=== PATIENT | female | born 1950 | race Caucasian/White ===

== ENCOUNTER → 2019-06-12 16:22 | Outpatient (BNVA) | payer MEDICARE, OTHER, SELFPAY | PROVIDERS: PCP Nurse Practitioner Family; Visit Provider Nurse Practitioner Family | DX: E55.9 Vitamin D deficiency, unspecified (principal); Z13.6 Encounter for screening for cardiovascular disorders; E03.9 Hypothyroidism, unspecified; L20.9 Atopic dermatitis, unspecified; M15.9 Polyosteoarthritis, unspecified; J40 Bronchitis, not specified as acute or chronic; R03.0 Elevated blood-pressure reading, without diagnosis of hypertension | CPT/HCPCS: 80053; 80061; 82306; 84443; 85025 ==

== ENCOUNTER → 2019-10-26 13:27 | Outpatient (BNVA) | payer MEDICARE, OTHER, SELFPAY | PROVIDERS: PCP Nurse Practitioner Family; Visit Provider Nurse Practitioner Family | DX: I10 Essential (primary) hypertension (principal); E03.9 Hypothyroidism, unspecified; E55.9 Vitamin D deficiency, unspecified | CPT/HCPCS: 80053; 80061; 82306; 82607; 83735; 84443; 85025 ==

== ENCOUNTER → 2019-11-28 11:25 | Outpatient (BNVA) | payer MEDICARE, OTHER, SELFPAY | PROVIDERS: PCP Nurse Practitioner Family; Visit Provider Nurse Practitioner Family | DX: R73.9 Hyperglycemia, unspecified (principal); I10 Essential (primary) hypertension; E55.9 Vitamin D deficiency, unspecified; E03.9 Hypothyroidism, unspecified | CPT/HCPCS: 83036 ==

== ENCOUNTER → 2019-12-07 11:50 | Outpatient (BNVA) | payer MEDICARE, OTHER, SELFPAY | PROVIDERS: PCP Nurse Practitioner Family; Visit Provider Orthopaedic Surgery | DX: Z20.828 Contact with and (suspected) exposure to other viral communicable diseases (principal) | CPT/HCPCS: 87635 ==

== ENCOUNTER → 2020-01-01 14:58 | Outpatient (BNVA) | payer MEDICARE, OTHER, SELFPAY | PROVIDERS: PCP Nurse Practitioner Family; Visit Provider Orthopaedic Surgery | DX: M25.561 Pain in right knee (principal) | CPT/HCPCS: 73560; 73565 ==

== ENCOUNTER → 2020-02-04 12:07 | Day surgery (SDC) | payer MEDICARE, OTHER, SELFPAY ==
--- NOTE | 2019-12-03 12:00 | ECG_ITS ---
[facility] Test Date: 2019-12-03 Pat Name: Tania Sandy Department: Room: Gender: Female Field Crew Chief: : 1950 Requested By: Dyana Barney Order Number: [id number] Elba MD: Juan Moulton M.D. Measurements Intervals [place] Rate: 72 P: 49 OR: 171 QRS: 19 QRSD: 86 T: 29 QT: 360 QTc: 395 Interpretive Statements SINUS RHYTHM No previous ECG available for comparison Electronically Signed On 12-03-2019 20:53:01 CDT by Juan Moulton M.D. [id number]
--- NOTE | 2019-12-03 12:15 | ANES.PREANE2 ---
Pre-Anesthetic Assessment Pre-Anesthetic Assessment: Height/Weight: Height 1.68 m Weight 104.326 kg Preop Diagnosis: Osteoarthritis Proposed Procedure: Operation Date: 12/10/19 09:25 Proposed Procedures p right Total Knee Arthroplasty 66405 M17.0(Right) - Sonny Parikh MD Familial anesthetic complications: PONV Social: Social History: No alcohol and No tobacco Exam: Pre-Anes Outpt Exam: alert, oriented x 3, clear to auscultation bilaterally and regular rate & rhythm Airway: Cervical ROM: WNL MP: 4 Dentition: Full Pulmonary: Pulmonary: Asthma Comments: former smoker CV/HEM: CV/HEM: HTN GI: GI: GERD Metabolic: Metabolic: Morbid obesity and Thyroid Anesthetic Plan: ASA status: 3 Anesthesia: Regional (specify below) (spinal + adductor) Other: avoid intrathecal opioids Risk of > 500 ml blood loss (7ml/kg in children): No PFSH Anesthesia PFSH: Medical History (Updated 11/28/19 @ 13:44 by ASHUTOSH Servin) Asthma Cough due to LIZZY inhibitor GERD (gastroesophageal reflux disease) Hypothyroid Osteoarthritis Urge incontinence Vitamin D deficiency Surgical History (Updated 10/12/19 @ 21:49 by ASHUTOSH Servin) Hx of gastric bypass Hx of hysterectomy Family History Other Arthritis Social History Smoking and tobacco status: former smoker Quit status (tobacco): has quit using tobacco Former quit date comment: smoked x 15 yrs Second hand smoke exposure: No Lives independently: Yes Household members: spouse Marital status: Current occupational status: retired History of recent travel: No Current gender identity: Female Data Anesthesia Cardiac Studies: No Data to Display
[2019-12-03 12:56] LABS: Basophils % 0.6 %; Eosinophils # 0.2 10^3/uL (0.0-0.8); Eosinophils % 2.4 %; Hematocrit 39.6 % (37.0-47.0); Lymphocytes # 2.6 10^3/uL (0.8-4.8); Lymphocytes % 38.2 %; Mean Corpuscular HGB Conc 30.3 g/dL (30.0-36.0); Mean Corpuscular Hemoglobin 28.2 pg (28.0-34.0); Mean Corpuscular Volume 93.2 fL (81-99); Monocytes # 0.5 10^3/uL (0.2-0.9); Monocytes % 7.5 %; Neutrophils # 3.45 10^3/uL (1.8-7.7); Nucleated Red Blood Cells % 0 %; Platelet Count 235 10^3/cmm (130-400); Red Blood Count 4.25 10^6/uL (4.1-5.3); White Blood Count 6.8 10^3/uL (4.0-10.0)
[2019-12-03 12:58] LABS: Anion Gap 13.3 (5-19); Blood Urea Nitrogen 8 mg/dL (8-23); Calcium 9.3 mg/dL (8.5-10.5); Carbon Dioxide 28 mmol/L (22-29); Chloride 99 mmol/L (98-107); Creatinine Clr Calc Pharmacy 81.0014; Glomerular Filtration Rate 99.1 mL/min (90-130); Glucose 98 mg/dL (65-115); Osmolality Calculated 278 mOsm/kg (285-295); Potassium 4.3 mmol/L (3.5-5.1); Sodium 136 mmol/L (136-145)
== END ==
PROVIDERS: Anesthesiology; PCP Nurse Practitioner Family; Visit Provider Orthopaedic Surgery
DX: Z01.818 Encounter for other preprocedural examination (principal); M17.11 Unilateral primary osteoarthritis, right knee
CPT/HCPCS: 36415; 80048; 85025; 93005

== ENCOUNTER → 2020-02-12 14:36 | Outpatient (BNVA) | payer MEDICARE, OTHER, SELFPAY | PROVIDERS: PCP Nurse Practitioner Family; Visit Provider Orthopaedic Surgery | DX: Z20.828 Contact with and (suspected) exposure to other viral communicable diseases (principal); Z01.812 Encounter for preprocedural laboratory examination | CPT/HCPCS: 87635 ==

== ENCOUNTER 2020-02-18 09:04 | Observation (INO) | payer MEDICARE, OTHER, SELFPAY ==
[2020-02-04 12:46] VITALS: BMI 37.1
--- NOTE | 2020-02-04 13:05 | ANES.PREANE2 ---
Pre-Anesthetic Assessment Pre-Anesthetic Assessment: Height/Weight: Height 1.68 m Weight 104.326 kg Preop Diagnosis: Right total knee arthroplasty Proposed Procedure: Operation Date: 02/18/20 07:00 Proposed Procedures p Total Knee Arthroplasty 44735 M17.11(Right) - Sonny Parikh MD Familial anesthetic complications: NOne Was Beta Demetris taken within 24 hours: N/A Social: Social History: No alcohol and No tobacco Exam: Pre-Anes Outpt Exam: alert, oriented x 3, clear to auscultation bilaterally and regular rate & rhythm Airway: Cervical ROM: WNL MP: 3 Dentition: Full Pulmonary: Pulmonary: Asthma Metabolic: Metabolic: Thyroid Anesthetic Plan: ASA status: 2 Anesthesia: Regional (specify below) Other: spinal + adductor Risk of > 500 ml blood loss (7ml/kg in children): No PFSH Anesthesia PFSH: Medical History (Updated 01/01/20 @ 15:39 by Sonny Parikh MD) Asthma Cough due to LIZZY inhibitor GERD (gastroesophageal reflux disease) Hypothyroid Osteoarthritis Urge incontinence Vitamin D deficiency Surgical History Hx of gastric bypass Hx of hysterectomy Family History Other Arthritis Social History Smoking and tobacco status: former smoker Quit status (tobacco): has quit using tobacco Former quit date comment: smoked x 15 yrs Second hand smoke exposure: No Lives independently: Yes Household members: spouse Marital status: Current occupational status: retired History of recent travel: No Current gender identity: Female Data Anesthesia Cardiac Studies: No Data to Display
[2020-02-18] VITALS (20 sets, daily range): BP systolic 109–153; BP diastolic 55–94; PULSE 67–92; RESP 13–20; TEMP 36–37.7; O2SAT 91–100
[2020-02-18] MEDS: sodium chloride 0.9% 1,000 ML 30 ML IV ×2 (06:13→09:19)
[2020-02-18] MEDS: midazolam 1 mg/mL INJ 5 ML 5 MG IVP (06:40)
[2020-02-18] MEDS: scopolamine 1.5 Patch 1 PATCH TRANSDERMA (06:48)
--- NOTE | 2020-02-18 06:53 | P.ANESUD_ITS ---
Pre-Anesthetic Update Pre-Anesthetic Assessment: Date of Surgery/Procedure: 02/18/20 Preop Brandie gnosis: Right total knee arthroplasty Proposed Procedure: Operation Date: 02/18/20 07:00 Proposed Procedures p Total Knee Arthroplasty 22558 M17.11(Right) - Sonny Parikh MD Any changes to Pre-Anesthetic Assessment?: No Last Intake: Intake Last Liquid Date 02/17/20 Last Liquid Time 23:59 Last Solid Date 02/17/20 Last Solid Time 17:00 Vitals: Temperature 96.8 F L 02/18/20 05:50 Temperature Source Temporal Artery S can 02/18/20 05:50 Pulse Rate 72 02/18/20 05:50 Pulse Rhythm 02/18/20 05:50 Pulse Strength 3+ Normal 02/18/20 05:50 Respiratory Rate 18 02/18/20 05:50 Blood Pressure 153/94 02/18/20 05:50 Blood Pressure Madelyn n 113 02/18/20 05:50 Pulse Oximetry 98 02/18/20 05:50 Oxygen Delivery Me thod 02/18/20 05:50 Exam: Pre-Anes Outpt Exam: alert, oriented x 3, clear to auscultation bilaterally and regular rate & rhythm Cardiac Studies: No Data to Display
--- NOTE | 2020-02-18 06:53 | ANES.PROC ---
Anesthesia Procedures Procedure/Date: 02/18/20 Nerve Block ^: Nerve Block 1: Main Anesthesia: general anesthesia Time Out Performed: Yes Consent: requested by attending/covering physician, from patient, risks and benefits reviewed and patient agrees to proceed Nerve block location: adductor canal (R) Anesthesia monitors applied: pulse oximetry, EKG, BP cuff and oxygen Nerve block position: supine Anesthetic Used: ropivicaine 0.5% and with decadron (4 mg) Amount of anesthesia used (mL): 30 Ultrasound used to: visualize and ID femerol nerve Nerve Stimulator Used?: No Interscalene/Femoral BLK: 4 stimuplex 21 g needle used for position and inplane approach, visualize local anesthetic spread and no vascular puncture identified Injection: neg aspiration of heme and paresthesia +/- Patient Tolerated Procedure: well and no complications Complications: none
--- NOTE | 2020-02-18 07:04 | W.PM.OPSFHP ---
Same Day Surgery H&P Indication for Procedure/HPI DATE OF PROCEDURE: February 18, 2020 CHIEF COMPLAINT/INDICATIONFOR SURGICAL PROCEDURE: Osteoarthritis right knee, here for elective right total knee arthroplasty PREOP DIAGNOSIS: Right total knee arthroplasty PLANNED PROCEDRUE: Operation Date: 02/18/20 07:00 Proposed Procedures p Total Knee Arthroplasty 10341 M17.11(Right) - Sonny Parikh MD Medications/Allergies* Home Medications Medication Instructions Recorded Confirmed Type albuterol sulfate 90 mcg/actuation 2 puff INHALATION Q6H PRN 06/12/19 02/18/20 History aerosol inhaler docosanol 10 % topical cream 1 applic TOPICAL DAILY gm 06/12/19 02/18/20 History fluticasone 100 mcg-salmeterol 50 1 puff INHALATION BID 06/12/19 02/18/20 History mcg/dose blistr powdr for inhalation cholecalciferol (vitamin D3) 25 3,000 unit PO DAILY tab 07/04/19 02/18/20 History mcg (1,000 unit) tablet mecobalamin (vitamin B12) 1,000 1,000 mcg PO DAILY 07/04/19 02/18/20 History mcg chewable tablet magnesium oxide 500 mg capsule 500 mg PO DAILY 10/11/19 02/18/20 History potassium gluconate 600 mg (99 mg) 600 mg PO DAILY 10/11/19 02/18/20 History tablet latanoprost 1 drp OPHTHALMIC (EYE) DAILY 12/03/19 02/18/20 History lisinopril 5 mg PO DAILY 12/03/19 02/18/20 History Allergies/Adverse Reactions Allergy/AdvReac Type Severity Reaction Status Date / Time latex Allergy itch rash Verified 02/04/20 12:38 Current Medications: Generic Name Dose Route Start Last Admin Trade Name Freq PRN Reason Stop Dose Admin Sodium Chloride 1,000 mls @ 30 mls/hr 02/18/20 05:45 02/18/20 06:13 Sodium Chloride 0.9% IV 02/19/20 05:44 30 mls/hr .Q24H SYLVESTER Administration Pertinent History/Comorbid Conditions* Medical History (Updated 01/01/20 @ 15:39 by Sonny Parikh MD) Asthma Cough due to LIZZY inhibitor GERD (gastroesophageal reflux disease) Hypothyroid Osteoarthritis Urge incontinence Vitamin D deficiency Surgical History (Updated 10/12/19 @ 21:49 by ASHUTOSH Servin) Hx of gastric bypass Hx of hysterectomy Family History (Updated 06/12/19 @ 13:59 by Mariann Morales LPN, RT) Arthritis Social History Smoking and tobacco status: former smoker Quit status (tobacco): has quit using tobacco Former quit date comment: smoked x 15 yrs Second hand smoke exposure: No Lives independently: Yes Household members: spouse Marital status: Current occupational status: retired History of recent travel: No Current gender identity: Female Pertinent Exam Findings alert, oriented x 3, clear to auscultation bilaterally, regular rate & rhythm, operative site marked and procedure specific exam findings Recommendations Surgery/Procedure today Coding Level of Care Code Acute Wet Crown Blocking Operator for Melissa Perry
[2020-02-18] MEDS: ceFAZolin 2,000 MG in sodium chloride 0.9% (plus) 50 ML 100 MG IV (07:15)
[2020-02-18] MEDS: EPINEPHrine 1 mg/mL INJ XX (08:23)
[2020-02-18] MEDS: ketorolac 30 mg/mL INJ IM (08:23)
[2020-02-18] MEDS: tranexamic acid 1,000 mg/10mL SDV 1000 MG IRRIGATION (08:26)
[2020-02-18] MEDS: fentaNYL 50 mcg/mL INJ 2mL IVP (09:20)
--- NOTE | 2020-02-18 09:29 | XRR_ITS ---
PROCEDURE INFORMATION: Exam: XR Right Knee Exam date and time: 02/18/2020 9:38 AM Age: 69 years old Clinical indication: Device placement; Joint replacement hardware; Prior surgery; Surgery date: Post-operative (0-2 days); Additional info: Status post right total knee arthroplasty TECHNIQUE: Imaging protocol: XR Right knee. Views: Frontal and cross-table lateral views. COMPARISON: CR XR knees AP WB w RT lmt ORTH 01/01/2020 3:04 PM FINDINGS: Tubes, catheters and devices: Anterior surgical cutaneous clips. The patellar, femoral, and tibial prosthetic joint components appear to be in good position and alignment. Bones/joints: There is no fracture identified. There is no joint effusion identified. Soft tissues: Operative site emphysema is present. Other findings: The patient is status post total knee replacement. XR/XR knee RT 1-2V 10583 IMPRESSION: Satisfactory appearance status post total knee replacement.
--- NOTE | 2020-02-18 09:31 | PM.OP ---
Operative Report Date of procedure: February 18, 2020 Pre-op Diagnosis: Right total knee arthroplasty Post-op diagnosis: same Post-op Findings: Same Procedure Done: Right total knee arthroplasty Pathology: none sent Surgeon: Sonny Parikh Anesthesia: General Estimated blood loss (mL): 100 Findings: Patient had cartilage loss over the medial femoral condyle and medial tibial plateau Condition: stable Procedure: The patient was taken to the operating room. Patient was given 1 g of tranexamic acid . The above anesthesia provided by the anesthesia service. A timeout was performed. The patient was prepped and draped in the usual fashion with the lower extremity exposed. A anterior incision was made, midline, from a point proximal to the patella to the distal tibial tubercle. The knee was entered through a medial parapatellar approach. The patella could be displaced laterally and the knee flexed. The patellar fat pad was resected to provide better visibility. Retractors were placed medially and laterally adjacent to the tibial plateau. The femoral canal was drilled in line with the longitudinal axis of the femur. Intramedullary femoral guide for used to make a distal femoral cut in 5 degrees of valgus, resecting 8 mm from the more prominent condyle. Next the extra medullary tibial guide was placed in alignment with the longitudinal axis of the tibia. The cutting guides were set to remove just over 9 mm from the high tibial plateau. The proximal tibia was then cut. The femoral measuring guide was then placed over the distal femur. Rotation was verified checking the relationship of the guide to the condyle and the trochlear groove. The femur was measured and cut for the desired femoral component. The desired tibial baseplate was then chosen. A trial reduction with the femur tibial baseplate and polyethylene was done, assuring that the knee was stable throughout full motion. Ligament balancing involve releasing nothing more than the deep medial collateral ligament.The tibia was prepared for the tibial baseplate. The patient had minimal patella wear and an sound patellar tracking with the [place] patella and decision was made not to proceed with patellar resurfacing. The posterior capsule and collateral ligaments were then injected with a solution of 100 mL of 0.2% ropivacaine, 1 mL of a 1:1000 epinephrine solution, and 30 mg of Toradol. Final polyethylene component was then snapped into place into the tibia. 2 grams of tranexamic acid were applied to the wound. The tourniquet was deflated. The tranxanemic acid was left contact with the knee for 5 minutes before the knee was irrigated with saline. The extensor retinaculum was closed with 1 Ethibond. The subcutaneous tissues were closed with 2-0 Vicryl and the skin was closed with skin peter. A compressive dressing was applied. The patient was taken to recovery room in stable condition. Silent Communication total knee arthroplasty components were used includin) Size 4 Triathalon cruciate retaining femoral component 2) Size 4 Tritanium tibial component 3) Size 4/11mm thickness CR tibial bearing insert
[2020-02-18] MEDS: CELEcoxib 200 mg Capsule PO ×2 (10:24→23:45)
[2020-02-18] MEDS: oxyCODONE 5 mg IR Tab/Cap PO ×2 (10:24→15:02)
[2020-02-18] MEDS: sodium chloride 0.9% 1,000 ML 100 ML IV ×2 (10:26→23:46)
--- NOTE | 2020-02-18 11:31 | PM.PACU ---
PACU note PACU note: VSS Post-Anesthesia Exam: somnolent, arousable Disposition: admitted
[2020-02-18] MEDS: chlorhexidine gluconate 0.12% Btl 473 mL 30 ML MUCOUS MEM ×2 (14:39→17:04)
[2020-02-18] MEDS: gabapentin 300 mg Capsule PO (17:05)
[2020-02-18] MEDS: mupirocin oint 22 gm 1 APPLIC NASAL (17:05)
[2020-02-19] VITALS (7 sets, daily range): BP systolic 114–128; BP diastolic 63–87; PULSE 72–92; RESP 18–19; TEMP 36.3–36.7; O2SAT 95–97
[2020-02-19 02:50] LABS: Hemoglobin 9.8 g/dL (11.5-15.3)
[2020-02-19] MEDS: oxyCODONE 5 mg IR Tab/Cap PO ×2 (07:36→13:44)
[2020-02-19] MEDS: gabapentin 300 mg Capsule PO (08:55)
[2020-02-19] MEDS: levothyroxine 50 mcg Tablet PO (08:56)
[2020-02-19] MEDS: lisinopril 5 mg Tablet PO (08:56)
[2020-02-19] MEDS: sennosides-docusate Tablet 2 TAB PO (08:56)
[2020-02-19] MEDS: montelukast sodium 10 mg Tablet PO (08:56)
[2020-02-19] MEDS: latanoprost 0.005% Op Soln 2.5 mL Btl 1 DROP EYE-BOTH (08:59)
--- NOTE | 2020-02-19 10:09 | PC.CHAP ---
Pastoral Care Encounter/Spiritual Assessment Type of Contact [] Declined suede cleaner visit [] Patient/Family/Request visit [] Outpatient visit [] Follow-up visit [] Physician referral [] Code/Alert [] Routine visit [] Staff referral [] Actively dying [] Patient sleeping [] Family support [] [] Out of room [] Palliative care [] [] Receiving care in room [] Pre-surgical visit [] Trauma [] Long length of stay [] ICU visit [] Other: Relational/Emotional Strength x] Patient feels connected with others/family/visitors/staff [] Distress [] Loneliness/isolation [] Abandonment Spirituality of Patient [] Person of Gale [] Attends Church of their Gale [] Believes in Prayer [] Reads Bible or Christian materials [] There are Spiritual issues to be addressed Ship Keeper Interventions [x] Prayer [] Active listening [] Non-anxious presence [] Spiritual/emotional support [] Crisis/trauma care [] Spiritual counseling [] Bereavement support [] Provided bereavement packet [] Provided Bible/devotional materials [] Provided toy/stuffed animal, coloring book to patient or family member [] Provided Communion [] Anointing/[place] [] Salvation [] Completed spiritual assessment [] Other: Impact on Illness or Injury [] Angry [] Fearful [] Anxious [] Often cries [] Exhaustion [] Unable to work [] Unable to attend episcopal [] Unable to walk/stand [] Unable to read [] Unable to drive [] Unable to eat/drink [] Unable to sleep [] Unable to be with family [] Patient intubated [] Other: Summary doing good ready tp]\o go home Time spent with patient 10 min
[2020-02-19] MEDS: CELEcoxib 200 mg Capsule PO (11:22)
--- NOTE | 2020-02-19 13:10 | P.DS_ITS ---
Discharge Providers Date of Admission: 02/18/20 09:04 Date of Discharge: February 19, 2020 Attending Provider at Admission: Sonny Parikh MD Attending Provider at Discharge: Sonny Parikh MD Primary Care Provider: ASHUTOSH Servin Reason for Visit Reason for Visit: right total knee arthroplasty Hospital Course Hospital Course The patient underwent elective right total knee arthroplasty on 02/18/2020. By 02/19/2020 she was independent with her walker and her pain was managed with oral medications. She remained hemodynamically stable. She is managed with aspirin and foot pumps for DVT prophylaxis. She was felt stable for discharge on that day. Physical Exam Narrative: EXAM NARRATIVE: On the day of discharge her knee incision was clean. They had no drainage. There is minimal swelling in the thigh and knee and the calf. No distal neurovascular deficits were noted Urinary Catheter Management^: Esteban: Cath Placed During This Visit: yes, but has since been removed by the nurse Reason for Continuing Indwelling Catheter: Decision to DC Catheter Urinary Catheter Date of Insertion: 02/18/20 Urinary Catheter Time of Insertion: 07:48 Date Urinary Catheter Removed: 02/19/20 Time Urinary Catheter Discontinued: 07:33 Discharge Data Data Completed and Pending: Completed Studies During Hospitalization Category Date Time Status XR knee RT 1-2V 7 3560 Routine Exams 02/18/20 09:29 Completed Labs from last 24 hours 02/19/20 02:00 Hgb 9.8 L Vitals: Last Vital Signs Temp 97.3 F L 02/19/20 12:00 Pulse 92 02/19/20 12:00 Resp 19 H 02/19/20 12:00 BP 128/80 02/19/20 12:00 Pulse Ox 96 02/19/20 12:00 Discharge Plan Discharge Patient Disposition: Home Condition: Stable Prescriptions: New aspirin 325 mg Tablet,Delayed Release (Dr/Ec) 325 mg PO DAILY 30 Days Qty: 30 RF: 0 celecoxib 200 mg Capsule 200 mg PO Q12H 15 Days Qty: 30 RF: 0 cyclobenzaprine 10 mg Tablet 10 mg PO TID PRN (Reason: Muscle Spasms) 7 Days Qty: 15 RF: 0 gabapentin 300 mg Capsule 300 mg PO BID 15 Days Qty: 30 RF: 0 oxycodone 5 mg Tablet 5 mg PO Q3H PRN (Reason: Moderate Pain) 7 Days Qty: 40 RF: 0 Continued albuterol sulfate [Proventil HFA] 90 mcg/actuation HFA aerosol inhaler 2 puff INHALATION Q6H PRN (Reason: Shortness Of Breath Or Wheezing) RF: 0 docosanol [Abreva] 10 % cream 1 applic TOPICAL DAILY RF: 0 fluticasone propion-salmeterol [Advair Diskus] 100-50 mcg/dose blister with device 1 puff INHALATION BID RF: 0 triamcinolone acetonide 0.1 % cream 1 applic TOPICAL BID Qty: 80 RF: 2 diclofenac sodium 1 % gel 4 gm TOPICAL QID Qty: 100 RF: 2 cholecalciferol (vitamin D3) 25 mcg (1,000 unit) tablet 3,000 unit PO DAILY RF: 0 mecobalamin (vitamin B12) 1,000 mcg tablet,chewable 1,000 mcg PO DAILY RF: 0 magnesium oxide 500 mg capsule 500 mg PO DAILY RF: 0 potassium gluconate 600 mg (99 mg) tablet 600 mg PO DAILY RF: 0 losartan 50 mg tablet 50 mg PO DAILY Qty: 30 RF: 5 montelukast 10 mg tablet 10 mg PO DAILY Qty: 30 RF: 6 cetirizine [Zyrtec] 10 mg tablet 10 mg PO DAILY PRN (Reason: allergy symptoms) 30 Days Qty: 30 RF: 3 levothyroxine 50 mcg tablet 50 mcg PO DAILY Qty: 30 RF: 0 latanoprost 1 drp ophthalmic (eye) DAILY RF: 0 lisinopril 5 mg 5 mg PO DAILY RF: 0 Discharge Orders: Discharge Order (Routine); Ordered 02/19/20 Ordered By: Sonny Parikh Other Ambulatory Orders: DME: Josh (Order) Location: None Selected Ordered By: Sonny Parikh Referrals: Sonny Parikh MD [Physician] - 02/21/20 1:15 pm (Additional appointment 03/04/2020 @ 9765) Discharge Diet: Advance as tolerated Discharge Activity: Limit activity as instructed Patient Instructions: Oxycodone/Acetaminophen (By mouth), Cyclobenzaprine (By mouth), Gabapentin (By mouth), Celecoxib (By mouth), Total Knee Replacement (DC) Activity Restrictions/Additional Instructions: May shower once incisions completely free of drainage. Discontinue knee dressing in 24-48 hours. Replaced dressings as needed. Take Celebrex twice a day for the next 15 days for pain , discontinue other anti-inflammatories Take Neurontin twice a day for pain Take Flexeril as needed for muscle spasms take oxycodone for breakthrough pain. Exercises per physical therapy. May weight-bear as tolerated on total knee arthroplasty Discharge Attestations Time Spent in Discharge Care*: other Quality Metrics Clinical Quality Measures During this hospital stay, did patient experience: None Coding Level of Care Code Acute Boat Rigger for Melissa Perry
--- NOTE | 2020-02-19 13:45 | PC.NURSE ---
patient given discharge instructions and verbalized understanding of instructions. patient taken to private vehicle via wheelchair by staff.
== END 2020-02-19 13:54 | disposition home or self-care (01) ==
LOC: MEDSURG 09:05
PROVIDERS: Admitting Provider Orthopaedic Surgery; PCP Nurse Practitioner Family; Visit Provider Orthopaedic Surgery
PROC: (CPT 27447; principal; 2020-02-18 07:00)
DX: M17.11 Unilateral primary osteoarthritis, right knee (principal); J45.909 Unspecified asthma, uncomplicated; K21.9 Gastro-esophageal reflux disease without esophagitis; E03.9 Hypothyroidism, unspecified; Z98.84 Bariatric surgery status; E55.9 Vitamin D deficiency, unspecified; Z87.891 Personal history of nicotine dependence; Z90.710 Acquired absence of both cervix and uterus
CPT/HCPCS: 27447; 12345; 36415; 64447; 73560; 76942; 85018; 96361; 96365; 96374; 97110; 97116; 97161; 97165; C1776; G0378; J0131; J0171; J0690; J1100; J1580; J1885; J2250; J2370; J2405; J2704; J2795; J3010; J3490; J7030

== ENCOUNTER 2020-03-10 14:07 | Outpatient (RCR) | payer MEDICARE, OTHER, SELFPAY | END 2020-03-20 23:59 | disposition home or self-care (01) | LOC: SPT 14:07 | PROVIDERS: PCP Nurse Practitioner Family; Referring Provider Orthopaedic Surgery; Visit Provider Orthopaedic Surgery | DX: Z47.1 Aftercare following joint replacement surgery (principal); Z96.651 Presence of right artificial knee joint | CPT/HCPCS: 97110; 97161 ==

== ENCOUNTER 2020-03-21 06:00 | Outpatient (RCR) | payer MEDICARE, OTHER, SELFPAY | END 2020-04-20 23:59 | disposition home or self-care (01) | LOC: SPT 06:00 | PROVIDERS: PCP Nurse Practitioner Family; Referring Provider Orthopaedic Surgery; Visit Provider Orthopaedic Surgery | DX: Z47.1 Aftercare following joint replacement surgery (principal); Z96.651 Presence of right artificial knee joint | CPT/HCPCS: 97110; 97140 ==

== ENCOUNTER 2020-04-21 06:00 | Outpatient (RCR) | payer MEDICARE, OTHER, SELFPAY | END 2020-05-14 23:00 | disposition home or self-care (01) | LOC: SPT 06:00 | PROVIDERS: PCP Nurse Practitioner Family; Referring Provider Orthopaedic Surgery; Visit Provider Orthopaedic Surgery | DX: Z47.1 Aftercare following joint replacement surgery (principal); Z96.651 Presence of right artificial knee joint | CPT/HCPCS: 97110; 97140 ==

== ENCOUNTER → 2020-06-30 11:52 | Outpatient (BNVA) | payer MEDICARE, OTHER, SELFPAY | PROVIDERS: PCP Nurse Practitioner Family; Visit Provider Nurse Practitioner Family | DX: R73.9 Hyperglycemia, unspecified (principal); E55.9 Vitamin D deficiency, unspecified; I10 Essential (primary) hypertension; J45.909 Unspecified asthma, uncomplicated | CPT/HCPCS: 80053; 80061; 82306; 83036; 84443; 85025 ==

== ENCOUNTER → 2020-12-08 15:59 | Outpatient (BNVA) | payer MEDICARE, OTHER, SELFPAY | PROVIDERS: PCP Nurse Practitioner Family; Visit Provider Nurse Practitioner Family | DX: M25.562 Pain in left knee (principal); H91.93 Unspecified hearing loss, bilateral; B35.1 Tinea unguium; G89.29 Other chronic pain | CPT/HCPCS: 73562 ==

== ENCOUNTER → 2021-02-03 15:30 | Outpatient (BNVA) | payer MEDICARE, OTHER, SELFPAY | PROVIDERS: PCP Nurse Practitioner Family; Visit Provider Nurse Practitioner Family | DX: R10.84 Generalized abdominal pain (principal); R10.9 Unspecified abdominal pain; Z71.89 Other specified counseling | CPT/HCPCS: 80053; 81000; 82607; 82728; 82746; 83550; 85025 ==

== ENCOUNTER 2021-02-06 11:53 | Emergency (ER) | payer MEDICARE, OTHER, SELFPAY ==
[2021-02-06 12:23] VITALS: BP 110/75; PULSE 100; RESP 16; TEMP 36.4; O2SAT 95
--- NOTE | 2021-02-06 13:14 | W.ED.ABDPA2 ---
HPI - Abdominal Pain General: Chief Complaint: Abdominal Pain Stated Complaint: Abdominal Pain Time Seen by Provider: 02/06/21 13:12 History of Present Illness: HPI narrative: 70-year-old female presents emergency room complaining of abdominal discomfort and right upper quadrant epigastric region that she has had for the last 2 weeks. Progressively worsening abdominal pain with nausea no hematemesis or coffee-ground emesis denies any dysuria urgency or frequency or hematuria. Low-grade subjective fever. MD elicited complaint: abdominal pain Onset (ago): week(s) (2) Pain Consistency: constant Location: Epigastric Severity: moderate Quality: cramping Radiation: none Exacerbating factors: nothing Relieving factors: nothing Associated Symptoms: Reports GI cramping; Denies anorexia, belching, bloating, change in bowel habits, change in stool character, chills, coffee ground emesis, constipation, diarrhea, dyspepsia, dysuria, excessive flatus, fever(s), heartburn, hematochezia, hematuria, hematemesis, fecal incontinence, loose stools, melena, nausea, poor appetite, syncope and vomiting Review of Systems Const: Denies: fever(s) or chills ENMT: Denies: throat pain, ear or mastoid pain, nasal discharge or nasal congestion Card: Denies: syncope Resp: Denies: dyspnea, productive cough or non-productive cough GI: Reports: GI cramping; Denies: nausea, vomiting, hematemesis, coffee ground emesis, heartburn, diarrhea, constipation, bloating, belching, excessive flatus, fecal incontinence, change in bowel habits, change in stool character, hematochezia or melena : Denies: dysuria or hematuria Skin/Breast: Denies: rash or pruritus PFSH ED PFSH: Medical History (Updated 02/13/21 @ 09:41 by Jamir Lombardi DO) Asthma Cough due to LIZZY inhibitor GERD (gastroesophageal reflux disease) Hypothyroid Osteoarthritis Urge incontinence Vitamin D deficiency Surgical History Hx of gastric bypass Hx of hysterectomy Family History Other Arthritis Social History Quit status (tobacco): has quit using tobacco Former quit date comment: smoked x 15 yrs Second hand smoke exposure: No Lives independently: Yes Household members: spouse Marital status: Current occupational status: retired History of recent travel: No Current gender identity: Female Physical Exam Const: COMMON NORMALS: no acute distress GENERAL APPEARANCE: cooperative and comfortable ORIENTATION/CONSCIOUSNESS: Yes awake, Yes oriented to person, Yes oriented to place and Yes oriented to time HENMT: COMMON NORMALS: normocephalic, atraumatic and hearing grossly normal bilaterally HEAD & SCALP: normocephalic and atraumatic Neck/C-Spine: COMMON NORMALS: no JVD Resp: COMMON NORMALS: normal respiratory effort, No retractions, No use of accessory muscles and clear to auscultation bilaterally AUSCULTATION: clear to auscultation bilaterally Cardio: COMMON NORMALS: no JVD, regular rate, regular rhythm and No murmurs present (Cardio) RATE: regular rate RHYTHM: regular rhythm GI: AUSCULTATION: Yes normoactive bowel sounds PALPATION: Yes Tenderness to palpation present (GI) (epigastric) and No Guarding due to palpation present (GI) Extremity: COMMON NORMALS: normal to inspection, capillary refill normal, no clubbing, cyanosis or edema, no calf tenderness and no pedal edema Neuro: SENSORIUM/ORIENTATION: Yes oriented to person, Yes oriented to place and Yes oriented to time Skin: COMMON NORMALS: no rashes or lesions noted GENERAL SKIN EXAM: no rashes or lesions noted Course ED course: CT shows large mass in the left lobe of the liver with air-fluid levels possible hepatic abscess possible necrotic abscess from tumor. Discussed with hospitalist do not feel it is appropriate to maintain here as we do not have the appropriate services patient will need interventional radiology as well as gastroenterology. Transfer to tertiary care via ambulance to [facility] in [place], discussed with patient and her . Vital Signs: Vital signs: Vital Signs Temperature 97.6 F 02/06/21 12:23 Pulse Rate 87 02/06/21 18:23 Respiratory Rate 16 02/06/21 18:30 Blood Pressure 109/87 02/06/21 18:23 Pulse Oximetry 96 02/06/21 18:30 MDM - Abdominal Pain Lab Data: Labs: Lab Results 02/06/21 02/06/21 02/06/21 13:28 13:28 13:28 WBC 13.1 10^3/uL H 10 ^3/uL (4.0-10.0) RBC 3.06 10^6/uL L 10 ^6/uL (4.1-5.3) Hgb 10.1 g/dL L g/dL (11.5-15.3) Hct 27.4 % L % (37.0-47.0) MCV 89.5 fl fl (81-99) MCH 33.0 pg pg (28.0-34.0) MCHC 36.9 g/dL H g/dL (30.0-36.0) RDW 13.9 % % (12.1-15.1) Plt Count 537 10^3/cmm H 10 ^3/cmm (130-400) MPV 9.4 fL fL (7.4-10.4) Neut % (Auto) 77.1 % % Lymph % (Auto) 11.4 % % Cochran % (Auto) 9.6 % % Eos % (Auto) 0.2 % % Baso % (Auto) 0.5 % % Neut # (Auto) 10.12 10^3/uL H 1 0^3/uL (1.8-7.7) Lymph # (Auto) 1.5 10^3/uL 10^3/ uL (0.8-4.8) Cochran # (Auto) 1.3 10^3/uL H 10^ 3/uL (0.2-0.9) Eos # (Auto) 0.0 10^3/uL 10^3/ uL (0.0-0.8) Baso # (Auto) 0.1 10^3/uL 10^3/ uL (0.0-0.1) Nucleated RBC % (a uto) 0 % % Nucleated RBCs # 0.0 /100WBC /100W BC Sodium 124 mmol/L L mmol /L (136-145) Potassium 3.3 mmol/L L mmol /L (3.5-5.1) Chloride 83 mmol/L L mmol/ L (98-107) Carbon Dioxide 27 mmol/L mmol/L (22-29) Anion Gap 17.3 (5-19) BUN 8 mg/dL mg/dL (8-23) Creatinine 0.7 mg/dL mg/dL (0.5-0.9) GFR Calculation 82.7 mL/min L mL/ min (90-130) Glucose 125 mg/dL H mg/dL (65-115) Calculated Osmolal ity 258 mOsm/kg L mOs m/kg (285-295) Lactic Acid 1.0 mmol/L mmol/L (0.5-2.2) Calcium 8.1 mg/dL L mg/dL (8.5-10.5) Total Bilirubin 1.5 mg/dL H mg/dL (0.15-1.2) AST 49 U/L H U/L (0-32) ALT 45 U/L H U/L (0-33) Alkaline Phosphata se 175 IU/L H IU/L (35-105) Creatine Kinase 24 U/L L U/L (26-192) Total Protein 6.2 g/dL L g/dL (6.6-8.7) Albumin 2.6 g/dL L g/dL (3.5-5.2) Globulin 3.6 g/dL g/dL (1.3-4.6) Lipase 69 U/L H U/L (13-60) Urine Color Urine Appearance Urine pH Ur Specific Gravit y Urine Protein Urine Glucose (UA) Urine Ketones Urine Blood Urine Nitrate Urine Bilirubin Urine Urobilinogen Ur Leukocyte Sally ase 02/06/21 15:42 WBC RBC Hgb Hct MCV MCH MCHC RDW Plt Count MPV Neut % (Auto) Lymph % (Auto) Cochran % (Auto) Eos % (Auto) Baso % (Auto) Neut # (Auto) Lymph # (Auto) Cochran # (Auto) Eos # (Auto) Baso # (Auto) Nucleated RBC % (a uto) Nucleated RBCs # Sodium Potassium Chloride Carbon Dioxide Anion Gap BUN Creatinine GFR Calculation Glucose Calculated Osmolal ity Lactic Acid Calcium Total Bilirubin AST ALT Alkaline Phosphata se Creatine Kinase Total Protein Albumin Globulin Lipase Urine Color Yellow (Yellow) Urine Appearance Clear (CLEAR) Urine pH 6.5 (5-7) Ur Specific Gravit y 1.000 L (1.005-1.030) Urine Protein Neg (Negative) Urine Glucose (UA) Norm (Normal) Urine Ketones Negative (Negative) Urine Blood Neg (Negative) Urine Nitrate Negative (Negative) Urine Bilirubin Neg (Negative) Urine Urobilinogen 4 mg/dL H mg/dL (Negative) Ur Leukocyte Sally ase Negative (Negative) Discharge Plan Discharge Patient Disposition: Transfer to ED Clinical Impression: Abscess of liver Prescriptions: No Action albuterol sulfate [Proventil HFA] 90 mcg/actuation HFA aerosol inhaler 2 puff INHALATION Q6H PRN (Reason: Shortness Of Breath Or Wheezing) RF: 0 docosanol [Abreva] 10 % cream 1 applic TOPICAL DAILY RF: 0 fluticasone propion-salmeterol [Advair Diskus] 100-50 mcg/dose blister with device 1 puff INHALATION BEDTIME RF: 0 cetirizine [Zyrtec] 10 mg tablet 10 mg PO DAILY PRN (Reason: allergy symptoms) 30 Days Qty: 90 RF: 3 ciclopirox 8 % solution 1 applic topical DAILY 28 Days Qty: 6.6 RF: 5 cholecalciferol (vitamin D3) 25 mcg (1,000 unit) tablet 3,000 unit PO DAILY RF: 0 ondansetron HCl [Zofran] 4 mg tablet 4 mg PO Q8H PRN (Reason: nausea and vomiting) Qty: 20 RF: 0 montelukast 10 mg tablet 10 mg PO DAILY Qty: 90 RF: 0 latanoprost 0.005 % drops 1 drp ophthalmic (eye) QPM RF: 0 potassium gluconate 595 mg (99 mg) Tablet 1,190 mg PO DAILY RF: 0 magnesium oxide 400 mg magnesium Tablet 400 mg PO DAILY RF: 0 Vitamin B 12 Gummies 2 tab PO DAILY RF: 0 losartan 50 mg tablet 50 mg PO QAM RF: 0 triamcinolone acetonide 0.1 % cream 1 applic TOPICAL BID PRN (Reason: unknown) RF: 0 levothyroxine 50 mcg tablet 50 mcg PO QAM RF: 0 Referrals: Mariann Turcios FNP [Primary Care Provider] - Coding Level of Care Code ED Cement Worker for Kennethg Fwd Exam Comprehensive
[2021-02-06 13:20] VITALS: BP 73/57; PULSE 90; RESP 18; O2SAT 97
--- NOTE | 2021-02-06 13:21 | CT_ITS ---
WS: [id number] CT ABDOMEN AND PELVIS WITH CONTRAST HISTORY: Abdominal pain with nausea for 2 weeks. TECHNIQUE: Imaging performed of the abdomen and pelvis with IV contrast. Single phase imaging of the abdomen. Coronal and sagittal reformats are submitted. All CT scans at [facility] use at [address] one of these dose optimization techniques: automated exposure control; mA and/or kV adjustment per patient size (includes targeted exams where dose is matched to clinical indication); or iterative re construction. IV CONTRAST: Omnipaque 300; 95 mL IV. Oral contrast: No DLP: 1857.51 mGy.cm COMPARISON: None available. Lower thorax: Linear atelectasis at the LEFT lung base. Mildly enlarged heart. No pericardial effusio n. Small hiatal hernia. Liver/biliary system: There is a large low-attenuation mass containing air and an air-fluid level claire tered in the LEFT lobe of the liver but also extending into the RIGHT lobe. This mass is distending t he RIGHT lobe of the liver and abutting the lesser curvature of the stomach and displacing the stomac h. There are a few additional scattered low-attenuation lesions within the liver. No bile duct dilata tion. Gallbladder: Mild wall thickening of the gallbladder. There are a few small foci layering posteriorly in the gallbladder. Pancreas: Normal size pancreas and pancreatic duct. No adjacent inflammation. Spleen: Normal size spleen. No mass or infarct. Adrenal glands: Normal. Right kidney: There is a low-attenuation mass exophytic from the lower pole of the RIGHT kidney. Mass measures 2.3 x 1.7 cm. This is a predominantly fatty mass. More solid lobulation along the RIGHT lat eral aspect of this mass. There are a few small calcifications also noted. Left kidney: Normal. Aorta: Mild atherosclerosis with no aneurysm. Lymphadenopathy: None. Free fluid: None. GI tract: Prior gastric bypass surgery. Stomach is being posteriorly displaced by the large complex c ystic area in the liver. The appendix is normal. Numerous diverticula in the descending and sigmoid c olon. Abdominal wall: Unremarkable abdominal wall. No hernia. Pelvis: Prior hysterectomy. Urinary bladder is well distended. Lipoma centered in the distal LEFT pso as muscle. Bones: L5 anterolisthesis by 5 mm. Sclerotic foci in several of the RIGHT lower ribs probably healing fractures. CT/CT abdomen pelvis w con* [id number] IMPRESSION: 1. Large mass centered in the LEFT lobe of the liver with air and an air-fluid level. Favor this is probably a hepatic abscess. Not a lot of adjacent strandi ng or adenopathy. 2. Mild irregularity within the wall of the gallbladder. Small stones and slud ge or adenomyomatosis. 3. There are additional cystic masses within the liver. 4. Predominantly fat-containing mass exophytic from the RIGHT inferior kidney. Typically fatty-containing masses are benign but there is a lobulated soft tis maria victoria enhancing component and nodularity along the lateral aspect of this fatty t umor. Cannot exclude a renal cell neoplasm encasing fat. This will need to be f ollowed up. Recommend [address] protocol follow-up. 5. Moderate diverticulosis.
--- NOTE | 2021-02-06 13:22 | ECG_ITS ---
[facility] Test Date: 2021-02-06 Pat Name: Tania Sandy Department: Room: Gender: Female Pnp: : 1950 Requested By: Jamir Rosado Order Number: [id number] Elba MD: Bailey Gardner M.D. Measurements Intervals [place] Rate: 82 P: 43 CA: 180 QRS: 45 QRSD: 93 T: 49 QT: 396 QTc: 465 Interpretive Statements SINUS RHYTHM NONSPECIFIC T-WAVE ABNORMALITY Compared to ECG 12/03/2019 12:10:45 T-wave abnormality now present Electronically Signed On 02-06-2021 16:08:52 [employer] by Bailey Gardner M.D. [id number]
[2021-02-06 13:30] VITALS: BP 79/47; PULSE 88; RESP 16; O2SAT 96
[2021-02-06] MEDS: sodium chloride 0.9% 1,000 ML 999 ML IV (13:31)
[2021-02-06 13:38] LABS: Basophils # 0.1 10^3/uL (0.0-0.1); Basophils % 0.5 %; Eosinophils % 0.2 %; Hematocrit 27.4 % (37.0-47.0); Hemoglobin 10.1 g/dL (11.5-15.3); Lymphocytes # 1.5 10^3/uL (0.8-4.8); Lymphocytes % 11.4 %; Mean Corpuscular HGB Conc 36.9 g/dL (30.0-36.0); Mean Corpuscular Volume 89.5 fl (81-99); Mean Platelet Volume 9.4 fL (7.4-10.4); Monocytes # 1.3 10^3/uL (0.2-0.9); Monocytes % 9.6 %; Neutrophils # 10.12 10^3/uL (1.8-7.7); Neutrophils % 77.1 %; Nucleated Red Blood Cells % 0 %; Platelet Count 537 10^3/cmm (130-400); Red Blood Count 3.06 10^6/uL (4.1-5.3); Red Cell Distribution Width 13.9 % (12.1-15.1); White Blood Count 13.1 10^3/uL (4.0-10.0)
[2021-02-06] MEDS: ondansetron 2 mg/ML SDV 2 mL 4 MG IVP (13:40)
[2021-02-06 14:02] LABS: Alanine Aminotransferase 45 U/L (0-33); Albumin Level 2.6 g/dL (3.5-5.2); Alkaline Phosphatase 175 IU/L (35-105); Anion Gap 17.3 (5-19); Aspartate Amino Transferase 49 U/L (0-32); Blood Urea Nitrogen 8 mg/dL (8-23); Calcium 8.1 mg/dL (8.5-10.5); Carbon Dioxide 27 mmol/L (22-29); Chloride 83 mmol/L (98-107); Creatine Phosphokinase 24 U/L (26-192); Globulin 3.6 g/dL (1.3-4.6); Glomerular Filtration Rate 82.7 mL/min (90-130); Glucose 125 mg/dL (65-115); Lipase 69 U/L (13-60); Osmolality Calculated 258 mOsm/kg (285-295); Potassium 3.3 mmol/L (3.5-5.1); Sodium 124 mmol/L (136-145); Total Bilirubin 1.5 mg/dL (0.15-1.2); Total Protein 6.2 g/dL (6.6-8.7)
[2021-02-06] MEDS: iohexol 300 mg/mL 100 mL Btl IV (14:18)
--- NOTE | 2021-02-06 14:23 | US_ITS ---
WS: [id number] RIGHT UPPER QUADRANT ULTRASOUND HISTORY: abd pain, elevated LFTS and t bili COMPARISON: CT abdomen 02/06/2021 Liver: 20.6 cm in length. Liver is enlarged. This complex heterogeneous mass with small specular refl ectors throughout centered within the LEFT lobe of the liver. On the recent CT this is thought to be a large hepatic abscess. This mass measures 14.2 x 12.5 x 13.6 cm with mild peripheral increased vasc ularity. Gallbladder: Well distended gallbladder. Gallbladder contains mobile sludge. Mild diffuse wall thicke mary. CBD: Not enlarged. Pancreas: Not visualized. Right kidney: 12.9 cm in length. Normal size kidney. Lobulated hypoechoic mass exophytic from the inf erior pole measures 4.0 x 3.1 x 3.3 cm. This was also seen on CT and contains significant amount of f at. No hydronephrosis. Aorta and IVC: Unremarkable abdominal aorta and IVC. No ascites. US/US gall bladder [id number] IMPRESSION: 1. Large complex mass centered in the LEFT lobe of the liver with foci of air. Probably representing a large abscess. Necrotic tumor within the differential. 2. Small amount of sludge within the gallbladder and mild wall thickening. 3. No common bile duct dilatation. 4. Lobulated echogenic mass exophytic from the RIGHT kidney. This mass was not ed to contain fat on both ultrasound and recent CT. There is a lobulated soft t issue solid component seen on the CT. This mass will need to be evaluated in 3 months for possible malignancy.
[2021-02-06 15:39] VITALS: BP 104/70; PULSE 81; RESP 18; O2SAT 90
[2021-02-06 16:00] LABS: Add Urine Microscopic? NO; Charge for UA Resulting for Rev
[2021-02-06 16:09] LABS: Bilirubin Urine Neg (Negative); Blood Urine Neg (Negative); Glucose Urine UA Norm (Normal); Ketones Urine Negative (Negative); Leukocyte Esterase Urine Negative (Negative); Nitrate Urine Negative (Negative); Protein Urine Neg (Negative); Urine Appearance Clear (CLEAR); Urine Color Yellow (Yellow); Urobilinogen Urine 4 mg/dL (Negative); pH Urine 6.5 (5-7)
--- NOTE | 2021-02-06 16:58 | PC.PHAR ---
pt states she takes care of her own medications-pt verified medications entered
[2021-02-06] MEDS: piperacillin-tazobactam 3.375 GM in sodium chloride 0.9% (plus) 50 ML IV (18:19)
[2021-02-06 18:23] VITALS: BP 109/87; PULSE 87; RESP 16; O2SAT 96
[2021-02-06 18:30] VITALS: RESP 16; O2SAT 96
[2021-02-06] MEDS: morphine 4 mg/mL SDV 1 mL IVP (18:30)
[2021-02-06] MEDS: sodium chlor 0.9% + KCl 20 mEq 20 MEQ/1,000 ML BAG 125 MEQ IV (19:14)
--- NOTE | 2021-02-06 19:33 | PC.NURSE ---
EMS here to transport patient to [facility].
== END 2021-02-06 20:12 ==
PROVIDERS: Emergency Provider Family Medicine; PCP Nurse Practitioner Family
DX: K75.0 Abscess of liver (principal); Z87.891 Personal history of nicotine dependence; R10.13 Epigastric pain
CPT/HCPCS: 74177; 76705; 80053; 81003; 82550; 83605; 83690; 85025; 87040; 93005; 93976; 96365; 96367; 96375; 99285; J2270; J2405; J2543; J7030; Q9967

== ENCOUNTER → 2021-03-02 14:05 | Day surgery (SDC) | payer MEDICARE, OTHER, SELFPAY ==
[2021-03-02 14:20] VITALS: BP 128/94; PULSE 91; RESP 18; TEMP 36.1; O2SAT 97
[2021-03-02 15:19] LABS: Basophils # 0.1 10^3/uL (0.0-0.1); Basophils % 0.8 %; Eosinophils # 0.3 10^3/uL (0.0-0.8); Eosinophils % 4.5 %; Hematocrit 33.2 % (37.0-47.0); Hemoglobin 10.3 g/dL (11.5-15.3); Lymphocytes # 2.4 10^3/uL (0.8-4.8); Lymphocytes % 38.9 %; Mean Corpuscular Volume 106.4 fl (81-99); Mean Platelet Volume 10.2 fL (7.4-10.4); Monocytes # 0.5 10^3/uL (0.2-0.9); Monocytes % 8.1 %; Neutrophils # 2.87 10^3/uL (1.8-7.7); Neutrophils % 47.4 %; Nucleated Red Blood Cells % 0 %; Platelet Count 258 10^3/cmm (130-400); Red Blood Count 3.12 10^6/uL (4.1-5.3); Red Cell Distribution Width 17.8 % (12.1-15.1); White Blood Count 6.1 10^3/uL (4.0-10.0)
[2021-03-02 15:44] LABS: Alanine Aminotransferase 10 U/L (0-33); Albumin Level 3.4 g/dL (3.5-5.2); Alkaline Phosphatase 69 IU/L (35-105); Anion Gap 16.3 (5-19); Aspartate Amino Transferase 14 U/L (0-32); Blood Urea Nitrogen 10 mg/dL (8-23); Calcium 8.3 mg/dL (8.5-10.5); Carbon Dioxide 23 mmol/L (22-29); Chloride 101 mmol/L (98-107); Globulin 2.5 g/dL (1.3-4.6); Glucose 103 mg/dL (65-115); Osmolality Calculated 281 mOsm/kg (285-295); Potassium 4.3 mmol/L (3.5-5.1); Sodium 136 mmol/L (136-145); Total Bilirubin 0.3 mg/dL (0.15-1.2); Total Protein 5.9 g/dL (6.6-8.7)
== END ==
PROVIDERS: PCP Nurse Practitioner Family; Visit Provider Pediatrics
DX: K75.0 Abscess of liver (principal); R16.0 Hepatomegaly, not elsewhere classified
CPT/HCPCS: 36592; 80053; 85025

== ENCOUNTER → 2021-03-09 14:15 | Day surgery (SDC) | payer MEDICARE, OTHER, SELFPAY ==
[2021-03-09 14:27] VITALS: BP 115/96; PULSE 81; RESP 18; TEMP 36.3; O2SAT 97
[2021-03-09 14:42] LABS: Basophils % 0.6 %; Eosinophils # 0.2 10^3/uL (0.0-0.8); Eosinophils % 3.5 %; Hemoglobin 11.1 g/dL (11.5-15.3); Lymphocytes # 2.6 10^3/uL (0.8-4.8); Lymphocytes % 40.3 %; Mean Corpuscular HGB Conc 31.7 g/dL (30.0-36.0); Mean Corpuscular Hemoglobin 33.2 pg (28.0-34.0); Mean Corpuscular Volume 104.8 fl (81-99); Mean Platelet Volume 9.7 fL (7.4-10.4); Monocytes # 0.5 10^3/uL (0.2-0.9); Monocytes % 7.1 %; Neutrophils # 3.13 10^3/uL (1.8-7.7); Neutrophils % 48.3 %; Nucleated Red Blood Cells % 0 %; Platelet Count 245 10^3/cmm (130-400); Red Blood Count 3.34 10^6/uL (4.1-5.3); Red Cell Distribution Width 15.9 % (12.1-15.1); White Blood Count 6.5 10^3/uL (4.0-10.0)
[2021-03-09 15:08] LABS: Alanine Aminotransferase 10 U/L (0-33); Albumin Level 3.6 g/dL (3.5-5.2); Alkaline Phosphatase 67 IU/L (35-105); Aspartate Amino Transferase 14 U/L (0-32); Blood Urea Nitrogen 13 mg/dL (8-23); Calcium 8.4 mg/dL (8.5-10.5); Carbon Dioxide 22 mmol/L (22-29); Chloride 100 mmol/L (98-107); Globulin 2.7 g/dL (1.3-4.6); Glucose 95 mg/dL (65-115); Osmolality Calculated 280 mOsm/kg (285-295); Sodium 135 mmol/L (136-145); Total Bilirubin 0.2 mg/dL (0.15-1.2); Total Protein 6.3 g/dL (6.6-8.7)
== END ==
PROVIDERS: PCP Nurse Practitioner Family; Visit Provider Pediatrics
DX: K75.0 Abscess of liver (principal); R16.0 Hepatomegaly, not elsewhere classified
CPT/HCPCS: 36592; 80053; 85025

== ENCOUNTER 2021-03-11 09:10 | Outpatient (CLI) | payer MEDICARE, OTHER, SELFPAY ==
--- NOTE | 2021-03-11 | CT_ITS ---
WS: [id number] CT ABDOMEN NON-CONTRAST PLUS CONTRAST TECHNIQUE: Noncontrast CT of the abdomen and contrast-enhanced CT of the abdomen with coronal and sag ittal reformatted images. CLINICAL INFORMATION: LIVER ABCESS COMPARISON: CT February 06, 2021 DLP: 1622.[address] scans at [facility] use at least one of these dose optimization techniques: automated e xposure control; mA and/or kV adjustment per patient size (includes targeted exams where dose is matc hed to clinical indication); or iterative reconstruction. FINDINGS: Interval placement of a pigtail drainage catheter in the left hepatic abscess. This is decreased in s ize today measuring approximately 3.9 x 4.8 x 3.6 cm AP by transverse by craniocaudal. Residual pocke ts of air within the abscess cavity. Smaller connecting abscess cavity is also significantly decrease d in size. Satellite cavity measures approximately 2.1 x 1.0 CM. Adjacent incidental hepatic cysts. Lung bases are well aerated. Gallbladder sludge. Small esophageal hiatal hernia. Prior gastric bypass . Mild fatty atrophy of the pancreas. Adrenal glands are normal. Normal renal parenchymal enhancement . No hydronephrosis. Fatty attenuation exophytic right renal lesion with a small amount of enhancing nodular soft tissue is stable. This lesion measures approximately 2.1 x 2.6 cm. No hydronephrosis in either kidney. Normal caliber abdominal aorta. No abdominal lymphadenopathy. Normal portal vein and splenic vein. Disc space narrowing worse L4-L5 and L5-S1. Slight anterolisthes is L5 on S1. CT/CT abdomen wo/w con [id number] IMPRESSION: 1. Interval placement of pigtail catheter within the left hepatic abscess whic h is decreased in size today measuring 3.9 x 4.8 x 3.6 cm with a few residual p ockets of air. 2. Adjacent connecting satellite abscess also decreased in size measuring 2.1 x 1.0 cm 3. No other significant changes compared to previous. 4. Stable fatty attenuation right renal lesion with a small amount of enhancin g soft tissue. Recommend continued surveillance of this lesion with six-month f ollow-up. 5. Prior postoperative changes gastric bypass. 6. Stable hepatic cysts.
[2021-03-11] MEDS: iohexol 350 mg/mL 100 mL Btl IV (15:15)
== END 2021-03-11 09:11 | disposition home or self-care (01) ==
PROVIDERS: PCP Nurse Practitioner Family; Visit Provider Radiology Vascular & Interventional Radiology
DX: K75.0 Abscess of liver (principal); K76.89 Other specified diseases of liver; N28.9 Disorder of kidney and ureter, unspecified
CPT/HCPCS: 74170; Q9967

== ENCOUNTER → 2021-03-16 13:48 | Day surgery (SDC) | payer MEDICARE, OTHER, SELFPAY ==
[2021-03-16 14:16] LABS: Basophils % 0.4 %; Eosinophils # 0.3 10^3/uL (0.0-0.8); Eosinophils % 3.8 %; Hematocrit 36.6 % (37.0-47.0); Hemoglobin 11.5 g/dL (11.5-15.3); Lymphocytes # 2.5 10^3/uL (0.8-4.8); Lymphocytes % 34.6 %; Mean Corpuscular HGB Conc 31.4 g/dL (30.0-36.0); Mean Corpuscular Hemoglobin 33.2 pg (28.0-34.0); Mean Corpuscular Volume 105.8 fl (81-99); Mean Platelet Volume 10.2 fL (7.4-10.4); Monocytes # 0.4 10^3/uL (0.2-0.9); Monocytes % 5.8 %; Neutrophils # 4.03 10^3/uL (1.8-7.7); Neutrophils % 55.3 %; Nucleated Red Blood Cells % 0 %; Platelet Count 227 10^3/cmm (130-400); Red Blood Count 3.46 10^6/uL (4.1-5.3); Red Cell Distribution Width 15.2 % (12.1-15.1); White Blood Count 7.3 10^3/uL (4.0-10.0)
[2021-03-16 14:19] VITALS: BP 124/89; PULSE 78; RESP 18; TEMP 35.8; O2SAT 98; BMI 32.5
--- NOTE | 2021-03-16 14:27 | PC.NURSE ---
dressing changed with statlock and sorbaview
[2021-03-16 14:47] LABS: Alanine Aminotransferase 13 U/L (0-33); Albumin Level 3.6 g/dL (3.5-5.2); Alkaline Phosphatase 72 IU/L (35-105); Anion Gap 11.2 (5-19); Aspartate Amino Transferase 15 U/L (0-32); Blood Urea Nitrogen 16 mg/dL (8-23); Calcium 8.2 mg/dL (8.5-10.5); Carbon Dioxide 26 mmol/L (22-29); Chloride 103 mmol/L (98-107); Globulin 2.4 g/dL (1.3-4.6); Glucose 106 mg/dL (65-115); Osmolality Calculated 284 mOsm/kg (285-295); Potassium 4.2 mmol/L (3.5-5.1); Sodium 136 mmol/L (136-145); Total Bilirubin 0.2 mg/dL (0.15-1.2)
== END ==
PROVIDERS: PCP Nurse Practitioner Family; Visit Provider Pediatrics
DX: K75.0 Abscess of liver (principal); R16.0 Hepatomegaly, not elsewhere classified
CPT/HCPCS: 36592; 80053; 85025

== ENCOUNTER → 2021-03-24 13:52 | Day surgery (SDC) | payer MEDICARE, OTHER, SELFPAY ==
[2021-03-24 14:15] VITALS: BP 133/99; PULSE 78; RESP 18; TEMP 36.2; O2SAT 99
--- NOTE | 2021-03-24 14:20 | PC.NURSE ---
Pt to GI lab for PICC line dressing change and lab draw. PICC to left arm patent and intact. Site flushes without difficulty. Good blood return noted. Dressing changed per protocol. [facility]
[2021-03-24 14:27] LABS: Basophils % 0.6 %; Eosinophils # 0.2 10^3/uL (0.0-0.8); Eosinophils % 3.1 %; Hematocrit 39.6 % (37.0-47.0); Hemoglobin 12.7 g/dL (11.5-15.3); Lymphocytes # 3.1 10^3/uL (0.8-4.8); Lymphocytes % 42.7 %; Mean Corpuscular HGB Conc 32.1 g/dL (30.0-36.0); Mean Corpuscular Hemoglobin 32.6 pg (28.0-34.0); Mean Corpuscular Volume 101.8 fl (81-99); Mean Platelet Volume 10.6 fL (7.4-10.4); Monocytes # 0.5 10^3/uL (0.2-0.9); Monocytes % 6.7 %; Neutrophils # 3.35 10^3/uL (1.8-7.7); Neutrophils % 46.8 %; Nucleated Red Blood Cells % 0 %; Platelet Count 248 10^3/cmm (130-400); Red Blood Count 3.89 10^6/uL (4.1-5.3); Red Cell Distribution Width 14.3 % (12.1-15.1); White Blood Count 7.2 10^3/uL (4.0-10.0)
[2021-03-24 14:48] LABS: Alanine Aminotransferase 16 U/L (0-33); Albumin Level 3.8 g/dL (3.5-5.2); Alkaline Phosphatase 85 IU/L (35-105); Anion Gap 17.4 (5-19); Aspartate Amino Transferase 17 U/L (0-32); Blood Urea Nitrogen 14 mg/dL (8-23); Calcium 8.4 mg/dL (8.5-10.5); Carbon Dioxide 23 mmol/L (22-29); Chloride 101 mmol/L (98-107); Globulin 2.6 g/dL (1.3-4.6); Glucose 91 mg/dL (65-115); Osmolality Calculated 284 mOsm/kg (285-295); Potassium 4.4 mmol/L (3.5-5.1); Sodium 137 mmol/L (136-145); Total Bilirubin 0.2 mg/dL (0.15-1.2); Total Protein 6.4 g/dL (6.6-8.7)
== END ==
PROVIDERS: PCP Nurse Practitioner Family; Visit Provider Pediatrics
DX: K75.0 Abscess of liver (principal); R16.0 Hepatomegaly, not elsewhere classified
CPT/HCPCS: 36415; 36592; 80053; 85025

== ENCOUNTER 2021-03-30 09:14 | Outpatient (CLI) | payer MEDICARE, OTHER, SELFPAY ==
--- NOTE | 2021-03-30 10:32 | CT_ITS ---
WS: [id number] CT ABDOMEN AND PELVIS WITH CONTRAST HISTORY: R10.9 - Unspecified abdominal pain, history liver abscess. TECHNIQUE: Imaging performed of the abdomen and pelvis with IV contrast. Single phase imaging of the abdomen. Coronal and sagittal reformats are submitted. All CT scans at [facility] use at [address] one of these dose optimization techniques: automated exposure control; mA and/or kV adjustment per patient size (includes targeted exams where dose is matched to clinical indication); or iterative re construction. IV CONTRAST: Omnipaque 300; 95 mL IV. Oral contrast: Yes. DLP: 1136.18 mGycm COMPARISON: 02/06/2021 and 03/11/2021 Lower thorax: Lung bases are clear. Mildly enlarged heart. Small hiatal hernia with changes of gastri c bypass surgery. Liver/biliary system: Pigtail catheter in the LEFT lobe of the liver for drainage of the previously d escribed hepatic abscess. There is very minimal residual decreased attenuation within the adjacent li shun. No focal area of fluid attenuation. There is no adjacent stranding in the soft tissues. There is a lobulated 12 mm cyst in the lateral segment LEFT lobe of the liver. There is also a cyst at the ca udate lobe which is stable. Gallbladder: Gallbladder is nondistended. Small amount layering sludge or stones in the gallbladder m ay be present. Unchanged. No acute cholecystitis or bile duct dilatation. Pancreas: Normal size pancreas and pancreatic duct. No adjacent inflammation. Spleen: Normal size spleen. No mass or infarct. Adrenal glands: Normal. Right kidney: Normal size RIGHT kidney. Again noted is a fat-containing mass with a lobulated soft ti ssue component in the mid kidney. This fat-containing mass is exophytic and measures 2.7 x 2.2 cm. No increase in size since 02/06/2021. Due to the soft tissue nodular component neoplasm is not excluded . No additional mass. Left kidney: Normal. Aorta: Mild atherosclerosis with no aneurysm. Lymphadenopathy: None. Free fluid: None. GI tract: No GI tract obstruction. Fat-containing nodule in the ascending colon is probably a lipoma. Partially obscured by adjacent fecal material and prior studies. There are numerous diverticula in t he colon. No acute diverticulitis. Abdominal wall: No acute abnormality. Pelvis: No free fluid or adenopathy. Prior hysterectomy. Urinary bladder is well distended. No enhanc ing masses. Incompletely visualized low-attenuation nodule with partial wall calcification in the reg ion of the RIGHT quadratus from Jeronimo muscle. This is just anterior to the gluteus oumar muscle a t the level of the lesser trochanter. This area has not been imaged previously. Bones: Advanced degenerative changes throughout the lumbar spine with disc space narrowing and osteoc hondrosis. L5 anterolisthesis by [address]/CT abdomen pelvis w con* [id number] IMPRESSION: 1. Essentially complete resolution of the LEFT hepatic abscess since the prior examinations. No bile duct dilatation. Abscess drainage catheter pigtail remai ns in good position. 2. Hepatic cysts are again identified and unchanged. 3. Status post gastric bypass. 4. No adenopathy. 5. Fat-containing mass in the RIGHT kidney with a focal soft tissue nodule. Fa tty tumors are typically benign but with the focal soft tissue nodule close fol low-up is recommended. Recommend follow-up CT evaluation in 3-6 months. No william since 02/06/2021. 6. Incompletely visualized low-attenuation nodule with partial wall calcificat ion in the posterior RIGHT pelvis associated with the quadriceps femoris muscle . This may be from an old injury. Less likely abscess. Correlate with pain to t he posterior RIGHT hip. If further evaluation is necessary RIGHT hip MRI with a nd without contrast may be necessary to evaluate the adjacent soft tissues.
[2021-03-30] MEDS: iohexol 300 mg/mL 100 mL Btl IV (13:56)
[2021-03-30] MEDS: iohexol 300 mg/mL 50 mL Btl PO (13:57)
== END 2021-03-30 09:15 | disposition home or self-care (01) ==
PROVIDERS: PCP Nurse Practitioner Family; Visit Provider Physician Assistant
DX: K75.0 Abscess of liver (principal); R10.9 Unspecified abdominal pain; K76.89 Other specified diseases of liver; Z98.84 Bariatric surgery status; N28.89 Other specified disorders of kidney and ureter
CPT/HCPCS: 74177; Q9967

== ENCOUNTER → 2021-03-31 13:58 | Day surgery (SDC) | payer MEDICARE, OTHER, SELFPAY ==
[2021-03-31 14:15] VITALS: BP 130/93; PULSE 93; RESP 18; TEMP 36.1; O2SAT 98
--- NOTE | 2021-03-31 14:15 | PC.NURSE ---
Pt to GI lab for PICC dressing change and lab draw. Labs drawn and faxed to [facility] as requested.
[2021-03-31 14:35] LABS: Basophils % 0.6 %; Eosinophils # 0.2 10^3/uL (0.0-0.8); Eosinophils % 3.7 %; Hematocrit 39.6 % (37.0-47.0); Hemoglobin 12.4 g/dL (11.5-15.3); Lymphocytes # 2.4 10^3/uL (0.8-4.8); Lymphocytes % 44.6 %; Mean Corpuscular HGB Conc 31.3 g/dL (30.0-36.0); Mean Corpuscular Hemoglobin 32.5 pg (28.0-34.0); Mean Corpuscular Volume 103.7 fl (81-99); Monocytes # 0.4 10^3/uL (0.2-0.9); Monocytes % 6.6 %; Neutrophils # 2.41 10^3/uL (1.8-7.7); Neutrophils % 44.3 %; Nucleated Red Blood Cells % 0 %; Platelet Count 207 10^3/cmm (130-400); Red Blood Count 3.82 10^6/uL (4.1-5.3); Red Cell Distribution Width 13.9 % (12.1-15.1); White Blood Count 5.4 10^3/uL (4.0-10.0)
[2021-03-31 15:07] LABS: Alanine Aminotransferase 17 U/L (0-33); Albumin Level 3.6 g/dL (3.5-5.2); Alkaline Phosphatase 90 IU/L (35-105); Aspartate Amino Transferase 18 U/L (0-32); Blood Urea Nitrogen 12 mg/dL (8-23); Calcium 9.3 mg/dL (8.5-10.5); Carbon Dioxide 22 mmol/L (22-29); Chloride 104 mmol/L (98-107); Globulin 2.4 g/dL (1.3-4.6); Glucose 195 mg/dL (65-115); Osmolality Calculated 293 mOsm/kg (285-295); Sodium 139 mmol/L (136-145); Total Bilirubin 0.2 mg/dL (0.15-1.2)
[2021-03-31 15:48] LABS: Cholesterol 152 mg/dL (0-200); HDL Cholesterol 46 mg/dL (60-100); LDL Cholesterol Calculated 57 mg/dL (50-129); LDL HDL Ratio 1.24 RATIO (0.00-3.22); Magnesium 1.7 mg/dL (1.7-2.3); Thyroid Stimulating Hormone 1.65 uIU/mL (0.27-4.20); Triglycerides 247 mg/dL (0-150); Vitamin B12 625 pg/mL (232-1245)
== END ==
PROVIDERS: PCP Nurse Practitioner Family; Referring Provider Nurse Practitioner Family; Visit Provider Pediatrics
DX: E03.9 Hypothyroidism, unspecified (principal); E55.9 Vitamin D deficiency, unspecified; I10 Essential (primary) hypertension
CPT/HCPCS: 36592; 80053; 80061; 81003; 82607; 83735; 84443; 85025

== ENCOUNTER 2021-04-30 11:15 | Outpatient (CLI) | payer MEDICARE, OTHER, SELFPAY ==
--- NOTE | 2021-04-30 11:26 | CT_ITS ---
WS: [id number] CT ABDOMEN AND PELVIS WITH CONTRAST HISTORY: Follow-up liver abscess drainage. TECHNIQUE: Imaging performed of the abdomen and pelvis with IV contrast. Single phase imaging of the abdomen. Coronal and sagittal reformats are submitted. All CT scans at [facility] use at [address] one of these dose optimization techniques: automated exposure control; mA and/or kV adjustment per patient size (includes targeted exams where dose is matched to clinical indication); or iterative re construction. IV CONTRAST: Omnipaque 300; 95 mL IV. Oral contrast: No DLP: 1258.23 mGy.cm COMPARISON: None available. Lower thorax: Lung bases are clear. Heart is normal size. Small hiatal hernia. Liver/biliary system: Liver is normal size. Area of decreased attenuation in the LEFT lobe of the lópez er is the area of the prior hepatic abscess and drainage. The drainage catheter has been removed sinc e the prior examination. No recurrent or residual abscess identified. There is mild volume loss in th e LEFT lobe. Several cysts are present throughout the liver which are stable. The largest in the caud ate lobe. Gallbladder: Normally distended. Tiny stones or sludge in the dependent gallbladder. Pancreas: Normal size pancreas and pancreatic duct. No adjacent inflammation. Spleen: Normal size spleen. No mass or infarct. Adrenal glands: Normal. Right kidney: Again noted is the partially exophytic fat-containing mass inferior pole of the RIGHT k idney. Fat-containing mass measures 2.5 x 2.6 cm. The more tiny nodular component measures 1.0 x 1.0 cm. No significant interval change since 02/06/2021. Left kidney: Normal. Aorta: Mild atherosclerosis with no aneurysm. Lymphadenopathy: None. Free fluid: None. GI tract: Stomach is nondistended. No small bowel obstruction or colonic obstruction. The appendix is normal. Descending diverticulosis without acute diverticulitis. Abdominal wall: Unremarkable abdominal wall. No hernia. Pelvis: No free fluid or adenopathy. Prior hysterectomy. Previously described mass with calcification near the RIGHT ischial tuberosity is not appreciated today. There is a catheter projecting the soft tissues over the posterior LEFT pelvis which is been present on prior studies of uncertain etiology. Bones: Advanced degenerative disc disease in the lumbar spine most significant at L4-5 and L5-S1. L5 anterolisthesis by [address]/CT abdomen pelvis w con* [id number] IMPRESSION: 1. Volume loss and scar formation LEFT lobe of the liver at the site of the pr ior hepatic abscess drainage. No residual or recurrent hepatic abscess. 2. Stable hepatic cysts. 3. No change in the fat-containing RIGHT renal mass with a soft tissue nodule since 04/08/2020. Recommend [address] follow-up to continue to document long-te rm stability. 4. Prior gastric bypass.
[2021-04-30] MEDS: iohexol 300 mg/mL 100 mL Btl IV (13:06)
== END 2021-04-30 11:16 | disposition home or self-care (01) ==
LOC: RAD 11:16
PROVIDERS: PCP Nurse Practitioner Family; Visit Provider Nurse Practitioner Family
DX: K75.0 Abscess of liver (principal); N28.89 Other specified disorders of kidney and ureter; K76.89 Other specified diseases of liver; Z98.84 Bariatric surgery status
CPT/HCPCS: 74177

== ENCOUNTER 2021-05-01 15:11 | Outpatient (CLI) | payer MEDICARE, OTHER, SELFPAY ==
--- NOTE | 2021-05-01 15:38 | MRR_ITS ---
PROCEDURE INFORMATION: Exam: MR Right Lower Extremity Joint Without and With Contrast; Hip Exam date and time: 05/01/2021 3:38 PM Age: 71 years old Clinical indication: Pain; Hip; Right; Additional info: M25.551 - pain in right hip TECHNIQUE: Imaging protocol: MR of the Right lower extremity joint without and with contrast. Exam focused on the hip. Contrast material: MULTIHANCE; Contrast volume: 20 ml; Contrast route: INTRAVENOUS (IV); COMPARISON: CT abdomen pelvis w con* [id number] 04/30/2021 12:53 PM FINDINGS: Bones and cartilage: The bones are intact. No abnormal bone signal or enhancement. No fracture. Joint spaces: No joint effusion. Labrum: Unremarkable. No tear. TENDONS: Tendons of iliopsoas group: Unremarkable. No evidence of tear. Tendons of medial compartment of thigh: Unremarkable. No evidence of tear. Tendons of lateral rotators of hip: Unremarkable. No evidence of tear. Tendons of gluteal group: Unremarkable. No evidence of tear. Tendons of posterior compartment of thigh: Increased T2 signal in the proximal right hamstring muscles (semi tendinosis and biceps femoris) and tendons extending to the ischial tuberosity. Small amount of fluid along the lateral and posterior ischial tuberosity. There is enhancement of the right hamstring muscles and tendon to the insertion. This process extends distally into the muscles, off the field of view. Muscles: Unremarkable. Soft tissues: Unremarkable. Reproductive: The uterus and ovaries are absent. MR/MR hip RT wo/w con [id number] IMPRESSION: 1. Abnormal signal and enhancement within the right hamstring muscles and tendons, extending to the insertion on the ischial tuberosity. This could represent an acute traumatic strain. Infectious myositis/tendinitis cannot be excluded. 2. This process extends distally into the right hamstring muscles, beyond the field of view. Additional imaging with contrast enhanced CT or MRI can be performed to fully identified the extent of this process.
[2021-05-01] MEDS: gadobenate dimeglumine 20 mL vial IV (16:49)
== END 2021-05-01 15:12 | disposition home or self-care (01) ==
LOC: RAD 15:22
PROVIDERS: PCP Nurse Practitioner Family; Visit Provider Nurse Practitioner Family
DX: M25.551 Pain in right hip (principal)
CPT/HCPCS: 73723

== ENCOUNTER → 2021-05-22 14:49 | Outpatient (BNVA) | payer MEDICARE, OTHER, SELFPAY | PROVIDERS: PCP Nurse Practitioner Family; Visit Provider Surgery | DX: Z20.822 Contact with and (suspected) exposure to COVID-19 (principal) | CPT/HCPCS: 87635 ==

== ENCOUNTER 2021-05-27 08:06 | Day surgery (SDC) | payer MEDICARE, OTHER, SELFPAY ==
[2021-05-22 10:17] VITALS: BMI 34.7
--- NOTE | 2021-05-27 08:44 | P.ANESASSM_ITS ---
Pre-Anesthetic Assessment Height/Weight: Height 1.68 m Weight 97.522 kg Preop Diagnosis: diagnostic Operation Date: 05/27/21 10:00 Proposed Procedures p EGD 57055/29922/z12.11/r14.00/k52.9(Not Applicable) - Oliverio Tabor MD s Colonoscopy(Not Applicable) - Oliverio Tabor MD Familial anesthetic complications: None Was Beta Demetris taken within 24 hours: N/A Was Clonidine taken within 24 hours: N/A Social No alcohol and No tobacco Exam alert, oriented x 3, clear to auscultation bilaterally and regular rate & rhythm Airway Submandibular: within normal limits Cervical ROM: within normal limits Mallampati: Class II Dentition: chipped Pulmonary Asthma CV/HEM None reported METS = 4 None reported Hepatic Liver abscess GI Gastroesophageal Reflux Disease (Sympotmatic on empty stomach ) Hx of gastric bypass Metabolic None reported Musc/skel Osteoarthritis/DJD Neuropsych None reported Anesthetic Plan ASA status: 2 Anesthesia: Anesthesia Evaluation and General Other: I discussed with the patient risks, goals, and benefits of MAC and general anesthesia. We discussed spectrum of MAC anesthesia including conversion to general as well as possibility of recall of intraoperative stimuli including discomfort/pain. Patient agrees to proceed with MAC. Risk of > 500 ml blood loss (7ml/kg in children): No Medications/Allergies Home Medications Medication Instructions Recorded Confirmed Last Taken Type docosanol 10 % topical cream 1 applic TOPICAL DAILY gm 06/12/19 05/22/21 03/30/21 History (Abreva) fluticasone 100 mcg-salmeterol 50 1 puff INHALATION BEDTIME 06/12/19 05/22/21 03/30/21 History mcg/dose blistr powdr for inhalation (Advair Diskus) cholecalciferol (vitamin D3) 25 3,000 unit PO DAILY tab 07/04/19 05/22/21 03/30/21 History mcg (1,000 unit) tablet cetirizine 10 mg tablet (Zyrtec) 10 mg PO DAILY PRN 30 Days #90 tab 06/30/20 05/22/21 03/30/21 Rx ciclopirox 8 % topical solution 1 applic TOPICAL DAILY 28 Days 12/08/20 05/22/21 03/30/21 Rx #6.6 ml Vitamin B 12 Gummies 2 tab PO DAILY 02/06/21 05/22/21 03/30/21 History latanoprost 0.005 % eye drops 1 drp OPHTHALMIC (EYE) QPM 02/06/21 05/22/21 03/30/21 History triamcinolone acetonide 0.1 % 1 applic TOPICAL BID PRN 02/06/21 05/22/21 03/30/21 History topical cream levothyroxine 50 mcg tablet 50 mcg PO QAM #90 tab 03/24/21 05/22/21 03/30/21 Rx fluconazole 150 mg tablet 150 mg PO Q72H #2 tab 03/31/21 05/22/21 03/30/21 Rx (Diflucan) montelukast 10 mg tablet 10 mg PO DAILY 05/22/21 05/22/21 Unknown History Allergies Allergy/AdvReac Type Severity Reaction Status Date / Time latex Allergy itch rash Verified 05/22/21 10:15 [facility] Anesthesia Medical History Abscess of liver Asthma Cough due to LIZZY inhibitor GERD (gastroesophageal reflux disease) History of rectocele Hypothyroid Osteoarthritis Urge incontinence Vitamin D deficiency Surgical History H/O drainage of abscess Liver abscess by IR at [place] History of abdominoplasty Hx of gastric bypass Hx of hysterectomy Repair rectocele and cystocele Family History Other Arthritis Social History Smoking and tobacco status: never smoked Quit status (tobacco): has quit using tobacco Former quit date comment: smoked x 15 yrs Second hand smoke exposure: No Alcohol intake: never Caregiver/support person: Yes (spouse) Lives independently: Yes Household members: spouse Marital status: service: No Current occupational status: retired History of recent travel: No Current gender identity: Female Special eleanor needs: No Data Anesthesia Cardiac Studies: No Data to Display
[2021-05-27 08:48] VITALS: BP 145/93; PULSE 86; RESP 20; TEMP 36.1; O2SAT 97
[2021-05-27] MEDS: sodium chloride 0.9% 1,000 ML 30 ML IV (08:55)
--- NOTE | 2021-05-27 09:07 | W.PM.OPSFHP ---
Same Day Surgery H&P Indication for Procedure/HPI DATE OF PROCEDURE: May 27, 2021 CHIEF COMPLAINT/INDICATIONFOR SURGICAL PROCEDURE: Abdominal pain PREOP DIAGNOSIS: diagnostic PLANNED PROCEDURE: Operation Date: 05/27/21 10:00 Proposed Procedures p EGD [id number]/56121/z12.11/r14.00/k52.9(Not Applicable) - Oliverio Tabor MD s Colonoscopy(Not Applicable) - Oliverio Tabor MD Medications/Allergies* Home Medications Medication Instructions Recorded Confirmed Type docosanol 10 % topical cream 1 applic TOPICAL DAILY gm 06/12/19 05/27/21 History (Abreva) fluticasone 100 mcg-salmeterol 50 1 puff INHALATION BEDTIME 06/12/19 05/27/21 History mcg/dose blistr powdr for inhalation (Advair Diskus) cholecalciferol (vitamin D3) 25 3,000 unit PO DAILY tab 07/04/19 05/27/21 History mcg (1,000 unit) tablet Vitamin B 12 Gummies 2 tab PO DAILY 02/06/21 05/27/21 History latanoprost 0.005 % eye drops 1 drp OPHTHALMIC (EYE) QPM 02/06/21 05/27/21 History triamcinolone acetonide 0.1 % 1 applic TOPICAL BID PRN 02/06/21 05/27/21 History topical cream montelukast 10 mg tablet 10 mg PO DAILY 05/22/21 05/27/21 History Allergies/Adverse Reactions Allergy/AdvReac Type Severity Reaction Status Date / Time latex Allergy itch rash Verified 05/27/21 08:46 Current Medications: Generic Name Dose Route Start Last Admin Trade Name Freq PRN Reason Stop Dose Admin Sodium Chloride 1,000 mls @ 30 mls/hr 05/27/21 08:30 05/27/21 08:55 Sodium Chloride 0.9% IV 05/28/21 08:29 30 mls/hr .Q24H SYLVESTER Administration Pertinent History/Comorbid Conditions* Medical History (Updated 04/28/21 @ 14:46 by Oliverio Tabor MD) Abscess of liver Asthma Cough due to LIZZY inhibitor GERD (gastroesophageal reflux disease) History of rectocele Hypothyroid Osteoarthritis Urge incontinence Vitamin D deficiency Surgical History (Updated 04/29/21 @ 11:20 by Oliverio Tabor MD) H/O drainage of abscess Liver abscess by IR at [place] History of abdominoplasty Hx of gastric bypass Hx of hysterectomy Repair rectocele and cystocele Family History (Updated 06/12/19 @ 13:59 by Mariann Morales LPN, RT) Arthritis Social History Smoking and tobacco status: never smoked Quit status (tobacco): has quit using tobacco Former quit date comment: smoked x 15 yrs Second hand smoke exposure: No Alcohol intake: never Caregiver/support person: Yes (spouse) Lives independently: Yes Household members: spouse Marital status: service: No Current occupational status: retired History of recent travel: No Current gender identity: Female Special eleanor needs: No Pertinent Exam Findings alert, oriented x 3 and regular rate & rhythm Recommendations Surgery/Procedure today Coding Level of Care Code Acute Valve And Regulator Repairer for Melissa Perry
[2021-05-27 10:00] VITALS: BP 103/68; PULSE 81; RESP 16; TEMP 36.2; O2SAT 96
--- NOTE | 2021-05-27 10:09 | ANE.PACU2 ---
Documented by User: Gm Munoz CRNA 05/27/21 10:09 Inpatient post-anesthesia follow up: Airway intact: Yes Vital signs: Temperature 97.1 F Pulse Rate 81 Respiratory Rate 16 Blood Pressure 103/68 Pulse Oximetry 96 Oxygen Delivery Me thod Nasal Cannula Oxygen Flow Rate 3 Fraction of Inspir ed Oxygen Hydration adequate: Yes Nausea and vomiting: No Pain level: 1 Mental status: Baseline
[2021-05-27 10:15] VITALS: BP 107/68; PULSE 72; RESP 18; O2SAT 97
== END 2021-05-27 10:47 | disposition home or self-care (01) ==
PROVIDERS: PCP Nurse Practitioner Family; Visit Provider Surgery
PROC: 0DJ08ZZ Inspection of Upper Intestinal Tract, Via Natural or Artificial Opening Endoscopic (ICD-10-PCS; CPT 43235; principal; 2021-05-27 10:00)
PROC: 0DJD8ZZ Inspection of Lower Intestinal Tract, Via Natural or Artificial Opening Endoscopic (ICD-10-PCS; CPT 45378; 2021-05-27 10:00)
DX: Z12.11 Encounter for screening for malignant neoplasm of colon (principal); R14.0 Abdominal distension (gaseous); K52.9 Noninfective gastroenteritis and colitis, unspecified; K57.30 Diverticulosis of large intestine without perforation or abscess without bleeding; K20.90 Esophagitis, unspecified without bleeding; K44.9 Diaphragmatic hernia without obstruction or gangrene; K22.2 Esophageal obstruction; J45.909 Unspecified asthma, uncomplicated; K21.9 Gastro-esophageal reflux disease without esophagitis; E03.9 Hypothyroidism, unspecified; M19.90 Unspecified osteoarthritis, unspecified site; Z87.891 Personal history of nicotine dependence
CPT/HCPCS: 43239; 45378; 82274; 83630; 87493; 87506; 88305; J2704; J7030

== ENCOUNTER → 2021-06-11 14:04 | Outpatient (BNVA) | payer MEDICARE, OTHER, SELFPAY | PROVIDERS: PCP Nurse Practitioner Family; Visit Provider Nurse Practitioner Family | DX: M19.011 Primary osteoarthritis, right shoulder (principal) | CPT/HCPCS: 73030 ==

== ENCOUNTER → 2021-10-13 14:20 | Outpatient (BNVA) | payer MEDICARE, OTHER, SELFPAY | PROVIDERS: PCP Nurse Practitioner Family; Visit Provider Orthopaedic Surgery | DX: M19.011 Primary osteoarthritis, right shoulder (principal) | CPT/HCPCS: 99213; 99214 ==

== ENCOUNTER → 2021-10-19 15:50 | Outpatient (BNVA) | payer MEDICARE, OTHER, SELFPAY | PROVIDERS: PCP Nurse Practitioner Family; Visit Provider Family Medicine | DX: E03.9 Hypothyroidism, unspecified (principal); E55.9 Vitamin D deficiency, unspecified; I10 Essential (primary) hypertension; K21.9 Gastro-esophageal reflux disease without esophagitis | CPT/HCPCS: 80053; 80061; 82306; 84443 ==

== ENCOUNTER → 2021-11-06 11:18 | Day surgery (SDC) | payer MEDICARE, OTHER, SELFPAY | PROVIDERS: PCP Nurse Practitioner Family; Visit Provider Orthopaedic Surgery | DX: Z01.818 Encounter for other preprocedural examination (principal) | CPT/HCPCS: 93005 ==

== ENCOUNTER 2021-11-13 10:15 | Outpatient (CLI) | payer MEDICARE, OTHER, SELFPAY ==
--- NOTE | 2021-11-13 10:24 | CT_ITS ---
WS: [id number] NONCONTRAST CT RIGHT SHOULDER TECHNIQUE: Noncontrast CT RIGHT shoulder with coronal and sagittal reformatted images. CLINICAL INFORMATION: PRIMARY OSTEOARTHRITIS R SHOULDER COMPARISON: Radiograph June 11, 2021 DLP: 908.[address] scans at [facility] use at least one of these dose optimization techniques: automated e xposure control; mA and/or kV adjustment per patient size (includes targeted exams where dose is matc hed to clinical indication); or iterative reconstruction. FINDINGS: Mild degenerative arthritis AC joint. Mild downsloping of the acromion. Advanced osteoarthritis gleno humeral joint with hypertrophic changes. Hypertrophic spurring along the medial humeral neck. Subchon dral cystic change at the glenohumeral joint and humeral head with advanced joint space narrowing. Pe riarticular subchondral sclerosis. Hypertrophic spurring along the greater tuberosity. No acute fract ures. Proximal humeral shaft is normal. A few calcified loose bodies in the subcoracoid bursa. 3 mm n oncalcified nodule RIGHT upper lobe. Small joint effusion. CT/CT shoulder RT wo con* [id number] IMPRESSION: 1. Advanced degenerative arthritis glenohumeral joint with hypertrophic spurri ng and subchondral cystic change with sclerosis involving the humeral head and glenoid. 2. No acute fractures. 3. Small joint effusion. Fluid in the subcoracoid bursa with a few calcified l oose bodies. 4. 3.5 mm noncalcified nodule RIGHT upper lobe. Recommend [address] fo llow-up
== END 2021-11-13 10:16 | disposition home or self-care (01) ==
LOC: RAD 10:17
PROVIDERS: PCP Nurse Practitioner Family; Visit Provider Orthopaedic Surgery
DX: M19.011 Primary osteoarthritis, right shoulder (principal); M25.411 Effusion, right shoulder; R91.1 Solitary pulmonary nodule
CPT/HCPCS: 73200

== ENCOUNTER 2021-11-16 17:40 | Observation (INO) | payer MEDICARE, OTHER, SELFPAY ==
--- NOTE | 2021-11-06 11:18 | ECG_ITS ---
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 Measurements Intervals [place] Rate: 60 P: 47 RI: 170 QRS: 5 QRSD: 86 T: 12 QT: 376 QTc: 376 Interpretive Statements SINUS RHYTHM MINIMAL VOLTAGE CRITERIA FOR LVH, CONSIDER NORMAL VARIANT [MEETS CRITERIA IN ONE OF: R(aVL), S(V1), R(V5), R(V5/V6)+S(V1)] Compared to ECG 02/06/2021 13:44:14 T-wave abnormality no longer present Electronically Signed On 11-06-2021 17:50:33 CDT by Fernando Sethi M.D. [email or web address]
--- NOTE | 2021-11-06 15:10 | ANES.PREANE2 ---
Pre-Anesthetic Assessment Height/Weight: Height 1.68 m Weight 99.79 kg Preop Diagnosis: diagnostic Operation Date: 11/16/21 12:40 Proposed Procedures p Right Total Shoulder Arthroplasty 35314,M19.011(Right) - Sonny Parikh MD Familial anesthetic complications: none Was Beta Demetris taken within 24 hours: N/A Was Clonidine taken within 24 hours: N/A Social No alcohol and No tobacco Exam alert, oriented x 3, clear to auscultation bilaterally and regular rate & rhythm Airway Submandibular: within normal limits Cervical ROM: within normal limits Mallampati: Class II Dentition: chipped Pulmonary Asthma CV/HEM Hypertension GI Gastroesophageal Reflux Disease Metabolic Morbid Obesity and Thyroid Disease [facility] Osteoarthritis/DJD Anesthetic Plan ASA status: 3 Anesthesia: General and Regional (specify below) (right iinterscalene nerve blk) Medications/Allergies Home Medications Medication Instructions Recorded Confirmed Last Taken Type docosanol 10 % topical cream 1 applic topical DAILY 06/12/19 11/06/21 03/30/21 History (Ayanna) fluticasone 100 mcg-salmeterol 50 1 puff inhalation BEDTIME pt 06/12/19 11/06/21 05/26/21 History mcg/dose blistr powdr for states she has this inhaler ext inhalation (Advair Diskus) med history doesnt show when last filled cholecalciferol (vitamin D3) 25 3,000 unit PO DAILY 07/04/19 11/06/21 05/26/21 History mcg (1,000 unit) tablet Vitamin B 12 Gummies 2 tab PO DAILY 02/06/21 11/06/21 05/26/21 History latanoprost 0.005 % eye drops 1 drp ophthalmic (eye) QPM 02/06/21 11/06/21 05/26/21 History montelukast 10 mg tablet 10 mg PO DAILY 05/22/21 11/06/21 05/26/21 History cetirizine 10 mg tablet (Zyrtec) 10 mg PO DAILY PRN allergy 08/18/21 11/06/21 Unknown Rx symptoms 30 days #90 tabs levothyroxine 50 mcg tablet 50 mcg PO QAM #90 tabs 08/18/21 11/06/21 Unknown Rx triamcinolone acetonide 0.1 % 1 applic topical BID PRN unknown 08/18/21 11/06/21 Unknown Rx topical cream #15 grams finasteride 1 mg tablet 1 mg PO DAILY #90 tabs 09/28/21 11/06/21 Unknown Rx ciclopirox 8 % topical solution 1 applic topical DAILY 11/06/21 11/06/21 Unknown History (Ciclodan) losartan 50 mg tablet 50 mg PO DAILY 11/06/21 11/06/21 Unknown History pantoprazole 40 mg tablet,delayed 40 mg PO DAILY 11/06/21 11/06/21 Unknown History release Allergies Allergy/AdvReac Type Severity Reaction Status Date / Time latex Allergy itch rash Verified 10/19/21 13:09 [facility] Anesthesia Medical History Abscess of liver Asthma Cough due to LIZZY inhibitor GERD (gastroesophageal reflux disease) History of rectocele Hypothyroid Osteoarthritis Urge incontinence Vitamin D deficiency Surgical History H/O drainage of abscess Liver abscess by IR at [place] H/O esophagogastroduodenoscopy (05/27/21) History of abdominoplasty Hx of gastric bypass Hx of hysterectomy Repair rectocele and cystocele Status post colonoscopy (05/27/21) Family History Other Arthritis Social History Smoking and tobacco status: never smoked Quit status (tobacco): has quit using tobacco Former quit date comment: smoked x 15 yrs Second hand smoke exposure: No Alcohol intake: never Caregiver/support person: Yes (spouse) Lives independently: Yes Household members: spouse Marital status: service: No Current occupational status: retired History of recent travel: No Current gender identity: Female Special eleanor needs: No Data Anesthesia Cardiac Studies: No Data to Display
[2021-11-16] VITALS (14 sets, daily range): BP systolic 103–152; BP diastolic 68–108; PULSE 68–85; RESP 16–22; TEMP 36.2–36.8; O2SAT 90–96; BMI 36.9
[2021-11-16] MEDS: sodium chloride 0.9% 1,000 ML 30 ML IV (12:42)
--- NOTE | 2021-11-16 12:54 | P.ANESUD_ITS ---
Pre-Anesthetic Update Pre-Anesthetic Assessment: Date of Surgery/Procedure: 11/16/21 Preop Brandie gnosis: Osteoarthritis Right shoulder Proposed Procedure: Operation Date: 11/16/21 12:40 Proposed Procedures p Right Total Shoulder Arthroplasty 44643,M19.011(Right) - Sonny Parikh MD Any changes to Pre-Anesthetic Assessment?: No Last Intake: Intake Last Liquid Date 11/15/21 Last Liquid Time 21:00 Last Solid Date 11/15/21 Last Solid Time 21:00 Vitals: Temperature 97.6 F 11/16/21 11:31 Temperature Source Temporal Artery S can 11/16/21 11:31 Pulse Rate 73 11/16/21 11:31 Pulse Rhythm 11/16/21 11:35 Pulse Strength 3+ Normal 11/16/21 11:35 Respiratory Rate 16 11/16/21 11:31 Blood Pressure 146/99 11/16/21 11:31 Blood Pressure Madelyn n 114 11/16/21 11:31 Pulse Oximetry 96 11/16/21 11:31 Oxygen Delivery Me thod 11/16/21 11:35 Exam: Pre-Anes Outpt Exam: alert, oriented x 3, clear to auscultation bilaterally and regular rate & rhythm Cardiac Studies: No Data to Display
--- NOTE | 2021-11-16 12:54 | ANES.PROC ---
Anesthesia Procedures Procedure/Date: 11/16/21 Nerve Block ^: Nerve Block 1: Main Anesthesia: general anesthesia Time Out Performed: Yes Consent: requested by attending/covering physician, from patient, risks and benefits reviewed and patient agrees to proceed Nerve block location: interscalene (R) Anesthesia monitors applied: pulse oximetry, EKG, BP cuff and oxygen Anesthetic Used: ropivicaine 0.5% (20 ml) and with decadron (4 mg) Nerve Stimulator Used?: No Interscalene/Femoral BLK: 2 stimuplex 22 g needle used for position and inplane approach, visualize local anesthetic spread and no vascular puncture identified Injection: neg aspiration of heme Patient Tolerated Procedure: well Complications: none Additional Comments: Patient denotes that R side of her tongue feels numb shortly after completion of nerve block, will monitor. Some subjective difficulty breathing, which can be expected post-interscalene.
[2021-11-16] MEDS: oxyCODONE 20 mg ER (12 HR) Tablet PO (12:58)
[2021-11-16] MEDS: gabapentin 300 mg Capsule PO (12:59)
[2021-11-16] MEDS: acetaminophen 500 mg Tablet 1000 MG PO ×2 (12:59→20:04)
[2021-11-16] MEDS: CELEcoxib 200 mg Capsule 400 MG PO (12:59)
[2021-11-16] MEDS: ondansetron 2 mg/ML SDV 2 mL 4 MG IVP ×2 (13:20→19:43)
--- NOTE | 2021-11-16 13:40 | SUR.PREOP ---
12:45 NERVE BLOCK PERFORMED. TOLERATED WELL. RIGHT ARM SUPPORTED ON BLANKETS. GOOD CAP REFILL SENSATION AND ROM OF FINGERS. 13:30 MEDICATED FOR NAUSEA.
[2021-11-16] MEDS: ceFAZolin 2,000 MG in sodium chloride 0.9% (plus) 50 ML 100 MG IV ×2 (15:12→22:21)
[2021-11-16] MEDS: sodium chloride 0.9% 100 mL Bag XX (16:19)
[2021-11-16] MEDS: EPINEPHrine 1 mg/mL INJ XX (16:28)
--- NOTE | 2021-11-16 17:32 | P.HP_ITS ---
Same Day Surgery H&P Indication for Procedure/HPI DATE OF PROCEDURE: November 16, 2021 CHIEF COMPLAINT/INDICATIONFOR SURGICAL PROCEDURE: Osteoarthritis right shoulder PREOP DIAGNOSIS: Osteoarthritis Right shoulder PLANNED PROCEDURE: Operation Date: 11/16/21 12:40 Proposed Procedures p Right Total Shoulder Arthroplasty 58900,M19.011(Right) - Sonny Parikh MD 31-year-old female with chronic progressive pain of the right shoulder attributable to osteoarthritis. Previous treatment including anti- inflammatories and multiple injections with persistent pain. Here for elective right total shoulder Medications/Allergies* Home Medications Medication Instructions Recorded Confirmed Type docosanol 10 % topical cream 1 applic topical DAILY 06/12/19 11/16/21 History (Abreva) fluticasone 100 mcg-salmeterol 50 1 puff inhalation BEDTIME pt 06/12/19 11/16/21 History mcg/dose blistr powdr for states she has this inhaler ext inhalation (Advair Diskus) med history doesnt show when last filled cholecalciferol (vitamin D3) 25 3,000 unit PO DAILY 07/04/19 11/16/21 History mcg (1,000 unit) tablet Vitamin B 12 Gummies 2 tab PO DAILY 02/06/21 11/16/21 History latanoprost 0.005 % eye drops 1 drp ophthalmic (eye) QPM 02/06/21 11/16/21 History montelukast 10 mg tablet 10 mg PO DAILY 05/22/21 11/16/21 History ciclopirox 8 % topical solution 1 applic topical DAILY 11/06/21 11/16/21 History (Ciclodan) losartan 50 mg tablet 50 mg PO DAILY 11/06/21 11/16/21 History pantoprazole 40 mg tablet,delayed 40 mg PO DAILY 11/06/21 11/16/21 History release Allergies/Adverse Reactions Allergy/AdvReac Type Severity Reaction Status Date / Time latex Allergy itch rash Verified 10/19/21 13:09 Current Medications: Generic Name Dose Route Start Last Admin Trade Name Freq PRN Reason Stop Dose Admin Sodium Chloride 1,000 mls @ 30 mls/hr 11/16/21 11:00 11/16/21 12:42 Sodium Chloride 0.9% IV 11/17/21 10:59 30 mls/hr .Q24H SYLVESTER Administration Ondansetron HCl 4 mg 11/16/21 10:47 11/16/21 13:20 Ondansetron 2 Mg/Ml Sdv 2 Ml IVP 4 mg Q5M PRN Administration NAUSEA AND VOMITING Pertinent History/Comorbid Conditions* Medical History (Updated 06/17/21 @ 12:10 by Sonny Parikh MD) Abscess of liver Asthma Cough due to LIZZY inhibitor GERD (gastroesophageal reflux disease) History of rectocele Hypothyroid Osteoarthritis Urge incontinence Vitamin D deficiency Surgical History (Updated 05/27/21 @ 10:00 by Oliverio Tabor MD) H/O drainage of abscess Liver abscess by IR at [place] H/O esophagogastroduodenoscopy (05/27/21) History of abdominoplasty Hx of gastric bypass Hx of hysterectomy Repair rectocele and cystocele Status post colonoscopy (05/27/21) Family History (Updated 06/12/19 @ 13:59 by Mariann Morales LPN, RT) Arthritis Social History Smoking and tobacco status: never smoked Quit status (tobacco): has quit using tobacco Former quit date comment: smoked x 15 yrs Second hand smoke exposure: No Alcohol intake: never Caregiver/support person: Yes (spouse) Lives independently: Yes Household members: spouse Marital status: service: No Current occupational status: retired History of recent travel: No Current gender identity: Female Special eleanor needs: No Pertinent Exam Findings alert, oriented x 3, clear to auscultation bilaterally, regular rate & rhythm and operative site marked Recommendations Surgery/Procedure today Coding Level of Care Code Acute Sales Training Coordinator for Meilssa Perry
--- NOTE | 2021-11-16 17:37 | XRR_ITS ---
PROCEDURE INFORMATION: Exam: XR Right Shoulder Exam date and time: 11/16/2021 5:42 PM Age: 71 years old Clinical indication: Other: Post op; Additional info: Right total shoulder, ap with 30 degrees humeral external rotation TECHNIQUE: Imaging protocol: Radiologic exam of the Right shoulder. Views: 2 or more views. COMPARISON: CT shoulder RT wo con* [id number] 11/13/2021 10:33 AM FINDINGS: Bones/joints: Sequela of recently placed right total shoulder arthroplasty in expected alignment. Soft tissues: Normal. XR/XR shoulder RT min 2V* [id number] IMPRESSION: Sequela of recently placed right total shoulder arthroplasty in expected alignment.
--- NOTE | 2021-11-16 17:37 | PM.OP ---
Operative Report Date of procedure: November 16, 2021 Pre-op diagnosis: Preop Diagnosis Osteoarthritis Right shoulder Post-op diagnosis: same Procedure done: Right total shoulder arthroplasty Implants: Tornier total shoulder 1) Simpliciti size 2 nucleus 2) Simpliciti STB Humeral Head 48 mm, thickness 21 mm 3) Aequalis PerFORM cortiolc pegged glenoid []mm Pathology: none sent Surgeon: Sonny Parikh Anesthesia: General and Nerve Block (Interscalene) Estimated blood loss (mL): 100 Condition: stable Disposition: PACU Procedure: Patient was given a interscalene block in holding. The patient was taken to the operating room and was given 2 g of Ancef. He is prepped and draped in the beachchair position with his arm supported on a Sanchez stand. A timeout was performed. A 10cm incision was made just lateral to the coracoid extending distally in line with the medial deltoid border. Dissection was carried out identifying the cephalic vein in the deltopectoral interval. Dissection was accomplished manually through the interval and subacromial and lateral deltoid adhesions released by hand. A Manuel soft tissue protector was placed. The biceps tendon was identified distally and traced proximally through the bicipital groove. The subscapularis and underlying capsule were then peeled off of the lesser tuberosity. The free tendon was fixed with braided sutures in a locking fashion and the free ends secured with a hemostat. The rotator interval was then split. The shoulder then could be dislocated out of the wound. In accordance with our preoperative plan a femoral head cut was made at the level of the capsular insertions with retractors to protect the rotator cuff. A central pin was placed and the proximal humerus prepared for the size nucleus and covered with the humeral protector plate. Retractors were then placed around the glenoid with the humeral head being retracted posteriorly and inferiorly. Release of the capsule was accomplished beginning anteriorly and working posteriorly around the humeral head. In accordance with the plan the central guidepin was placed. The glenoid was planed down to subchondral bone removing. The central peg hole and peripheral holes were then placed. The glenoid was irrigated removing cartilaginous remnants. Peripheral peg holes were dried with a Ray-Corrie and prepared with an epinephrine solution. Simplex P antibiotic cement was packed in each pedicle and the final glenoid component placed. Trial reduction was accomplished before settling on the mm mm thickness glenoid. The final humeral head was placed in the shoulder reduced. 4 drill holes were then made beginning in the bicipital groove posteriorly into the greater tuberosity. Sutures from the subscapularis were passed through these holes and the sutures were secured over a 4-hole mini plate over the greater tuberosity with excellent purchase. The rotator interval was closed laterally with a braided nylon suture. The shoulder was irrigated with saline. The deltopectoral interval was closed with interrupted 0 Vicryl suture. Subcutaneous tissues were closed with running 2-0 Stratafix. Skin edges closed with a running 4-0 Stratafix. The skin was covered with a Prineo skin glue and covered with OpSite. The patient was placed in a sling, extubated, and taken recovery room in stable condition.
--- NOTE | 2021-11-16 18:00 | ANE.PACU2 ---
Inpatient post-anesthesia follow up: Airway intact: Yes Vital signs: Temperature 97.5 F Pulse Rate 63 Respiratory Rate 18 Blood Pressure 116/78 Pulse Oximetry 94 Oxygen Delivery Me thod Room Air Oxygen Flow Rate 2 Fraction of Inspir ed Oxygen Hydration adequate: Yes Nausea and vomiting: No Pain level: 2 Mental status: Baseline
[2021-11-16] MEDS: sodium chloride 0.9% 1,000 ML 80 ML IV (19:44)
[2021-11-16] MEDS: CELEcoxib 200 mg Capsule PO (20:05)
[2021-11-17 02:59] VITALS: RESP 14
[2021-11-17] MEDS: ondansetron 2 mg/ML SDV 2 mL 4 MG IVP ×2 (02:59→08:11)
[2021-11-17] MEDS: oxyCODONE 5 mg IR Tab/Cap PO ×2 (02:59→08:11)
[2021-11-17 04:00] VITALS: BP 106/69; PULSE 63; RESP 17; TEMP 36.5; O2SAT 95
[2021-11-17] MEDS: acetaminophen 500 mg Tablet 1000 MG PO (05:18)
[2021-11-17] MEDS: levothyroxine 50 mcg Tablet PO (05:18)
[2021-11-17] MEDS: ceFAZolin 2,000 MG in sodium chloride 0.9% (plus) 50 ML 100 MG IV (05:19)
[2021-11-17] MEDS: sodium chloride 0.9% 1,000 ML 80 ML IV (05:19)
[2021-11-17 08:00] VITALS: BP 116/78; PULSE 63; RESP 17; TEMP 36.4; O2SAT 94
[2021-11-17 08:11] VITALS: RESP 18
[2021-11-17] MEDS: losartan 50 mg Tablet PO (08:12)
[2021-11-17] MEDS: montelukast sodium 10 mg Tablet PO (08:12)
[2021-11-17] MEDS: aspirin 325 mg EC Tablet PO (08:12)
[2021-11-17] MEDS: CELEcoxib 200 mg Capsule PO (08:12)
[2021-11-17] MEDS: pantoprazole DR 40 mg Tablet PO (08:12)
--- NOTE | 2021-11-17 09:32 | PM.DCS ---
Discharge Providers Date of Admission: 11/16/21 17:40 Date of Discharge: November 17, 2021 Attending Provider at Admission: Sonny Burks MD Attending Provider at Discharge: Sonny Burks MD Primary Care Provider: ASHUTOSH Servin Diagnoses at Discharge Discharge Diagnosis (1) Osteoarthritis of right shoulder: Status: Resolved (2) Status post replacement of right shoulder joint: Status: Acute Hospital Course Hospital Course The patient tolerated surgery well. They remained hemodynamically stable. They was begun on aspirin and sequential compression dressing for DVT prophylaxis. By the first postoperative day her pain was controlled with oral medications. She was tolerating occupational therapy for the shoulder. As the pain was adequately controlled and they were fully mobile they were discharged home. Physical Exam Narrative: On the day of discharge the patient's dressing was clean and dry. The patient's would fire his deltoid and their biceps. No distal neurovascular deficits were noted. Discharge Data Studies Completed and Pending Completed Studies During Hospitalization Category Date Time Status XR shoulder RT min 2V* [id number] Routine Exams 11/16/21 17:37 Completed Radiology Impressions Shoulder X-Ray 11/16/21 17:37 IMPRESSION: Sequela of recently placed right total shoulder arthroplasty in expected alignment. Vitals Last Vital Signs Temp 97.5 F L 11/17/21 08:00 Pulse 63 11/17/21 08:00 Resp 18 11/17/21 08:11 BP 116/78 11/17/21 08:00 Pulse Ox 94 11/17/21 08:00 O2 Del Method 11/17/21 08:00 O2 Flow Rate 2 11/16/21 20:00 Discharge Plan Discharge Patient Disposition: Home Condition: Stable Prescriptions: New oxycodone 5 mg Tablet 5 mg PO Q4H PRN (Reason: Moderate Pain) 7 Days Qty: 40 0RF celecoxib 200 mg Capsule 200 mg PO BID 14 Days Qty: 28 0RF ondansetron HCl 4 mg tablet 4 mg PO Q8H 5 Days Qty: 15 0RF acetaminophen 500 mg Tablet 1,000 mg PO Q8H 14 Days Qty: 84 0RF aspirin 325 mg Tablet,Delayed Release (Dr/Ec) 325 mg PO DAILY 30 Days Qty: 30 0RF Continued docosanol [Abreva] 10 % cream 1 applic TOPICAL DAILY fluticasone propion-salmeterol [Advair Diskus] 100-50 mcg/dose blister with device 1 puff INHALATION BEDTIME cholecalciferol (vitamin D3) 25 mcg (1,000 unit) tablet 3,000 unit PO DAILY triamcinolone acetonide 0.1 % cream 1 applic TOPICAL BID PRN (Reason: unknown) Qty: 15 1RF cetirizine [Zyrtec] 10 mg tablet 10 mg PO DAILY PRN (Reason: allergy symptoms) 30 Days Qty: 90 1RF finasteride 1 mg tablet 1 mg PO DAILY Qty: 90 0RF levothyroxine 50 mcg tablet See Rx Instructions .ROUTE .COMPLEX Qty: 90 0RF Dose Instruction: TAKE 1 TABLET BY MOUTH IN THE MORNING ONCE DAILY Rx Instructions: TAKE 1 TABLET BY MOUTH IN THE MORNING ONCE DAILY latanoprost 0.005 % drops 1 drp ophthalmic (eye) QPM Rx Instructions: both eyes Vitamin B 12 Gummies 2 tab PO DAILY montelukast 10 mg tablet 10 mg PO DAILY Rx Instructions: Take 1 tablet by mouth once daily losartan 50 mg tablet 50 mg PO DAILY pantoprazole 40 mg tablet,delayed release (DR/EC) 40 mg PO DAILY ciclopirox [Ciclodan] 8 % solution 1 applic topical DAILY Discharge Orders: Discharge Order (Routine); Ordered 11/17/21 Ordered By: Sonny Burks Referrals: Hoang Marquis FNP [Physician Environmental Permitting Specialist] - 11/20/21 8:00 am Discharge Diet: Advance as tolerated Discharge Activity: Limit activity as instructed Patient Instructions: Opioid Safety Activity Restrictions/Additional Instructions: Okay to shower. No soaking incision in tub Apply FirstIce up to 20 min/hr for pain and swelling Take Celebrex twice a day for the next 15 days for pain , discontinue other anti-inflammatories Take Tylenol 500mg (up to 2 tabs) 3 times a day for mild pain Take Zofran for nausea. take oxycodone for breakthrough pain. Outpatient shoulder therapy will be scheduled at [facility]. IF HAVE ANY PROBLEMS OR QUESTIONS CALL [facility] AT AND ASK TO HAVE DR. BURKS PAGED. Discharge Attestations Time Spent in Discharge Care*: other Quality Metrics Clinical Quality Measures [ No reported AMI, CVA or VTE this stay] Coding Level of Care Code Acute Chg FW DC note Diagnoses Osteoarthritis of right shoulder M19.011 Status post replacement of right shoulder joint Z96.611
[2021-11-17 10:36] VITALS: RESP 18
--- NOTE | 2021-11-17 12:26 | PC.NURSE ---
iv removed bleeding controlled. Patient dC in stable condition with
== END 2021-11-17 12:27 | disposition home health service (06) ==
LOC: MEDSURG 17:57
PROVIDERS: Admitting Provider Orthopaedic Surgery; PCP Nurse Practitioner Family; Visit Provider Orthopaedic Surgery
PROC: (CPT 23472; principal; 2021-11-16 12:20)
DX: M19.011 Primary osteoarthritis, right shoulder (principal); I10 Essential (primary) hypertension; E03.9 Hypothyroidism, unspecified; J45.909 Unspecified asthma, uncomplicated; K21.9 Gastro-esophageal reflux disease without esophagitis; E66.01 Morbid (severe) obesity due to excess calories; Z68.37 Body mass index [BMI] 37.0-37.9, adult; Z79.51 Long term (current) use of inhaled steroids; Z87.891 Personal history of nicotine dependence; Z91.040 Latex allergy status
CPT/HCPCS: 23472; 73030; 97165; C1713; C1776; G0378; J0171; J1100; J1580; J2270; J2405; J2704; J2795; J3010; J3490; J7030

== ENCOUNTER 2021-11-20 06:00 | Outpatient (RCR) | payer MEDICARE, OTHER, SELFPAY | END 2021-12-18 23:59 | disposition home or self-care (01) | LOC: SPT 06:00 | PROVIDERS: PCP Nurse Practitioner Family; Visit Provider Orthopaedic Surgery | DX: Z96.611 Presence of right artificial shoulder joint (principal); M79.89 Other specified soft tissue disorders; M25.511 Pain in right shoulder | CPT/HCPCS: 97110; 97140; 97161; 99024; 99213 ==

== ENCOUNTER → 2021-12-18 09:47 | Outpatient (BNVA) | payer MEDICARE, OTHER, SELFPAY | PROVIDERS: PCP Nurse Practitioner Family; Visit Provider Nurse Practitioner Family | DX: Z96.611 Presence of right artificial shoulder joint (principal) | CPT/HCPCS: 73030; 99024 ==

== ENCOUNTER 2021-12-19 06:00 | Outpatient (RCR) | payer MEDICARE, OTHER, SELFPAY | END 2022-01-18 23:59 | disposition home or self-care (01) | LOC: SPT 06:00 | PROVIDERS: PCP Nurse Practitioner Family; Visit Provider Orthopaedic Surgery | DX: Z96.611 Presence of right artificial shoulder joint (principal); M79.89 Other specified soft tissue disorders | CPT/HCPCS: 97110; 97140; 97530 ==

== ENCOUNTER → 2022-06-03 14:29 | Outpatient (BNVA) | payer MEDICARE, OTHER, SELFPAY | PROVIDERS: PCP Nurse Practitioner Family; Visit Provider Nurse Practitioner Family | DX: S71.002A Unspecified open wound, left hip, initial encounter (principal); X58.XXXA Exposure to other specified factors, initial encounter | CPT/HCPCS: 87070; 87075; 87205 ==

== ENCOUNTER → 2022-07-07 11:19 | Outpatient (BNVA) | payer MEDICARE, OTHER, SELFPAY | PROVIDERS: PCP Nurse Practitioner Family; Visit Provider Nurse Practitioner Family | DX: E55.9 Vitamin D deficiency, unspecified (principal); R73.9 Hyperglycemia, unspecified; M25.551 Pain in right hip; K21.9 Gastro-esophageal reflux disease without esophagitis; I10 Essential (primary) hypertension | CPT/HCPCS: 80053; 80061; 82306; 82607; 83036; 83735; 84443; 85025 ==

== ENCOUNTER 2022-07-11 13:48 | Observation (INO) | payer MEDICARE, OTHER, SELFPAY ==
[2022-07-11 14:10] VITALS: BP 159/109; PULSE 75; TEMP 36.6; O2SAT 97; BMI 37.8
[2022-07-11 15:05] LABS: Add Urine Microscopic? NO; Charge for UA Resulting for Rev
[2022-07-11 15:12] LABS: Bilirubin Urine Neg (Negative); Blood Urine Neg (Negative); Glucose Urine UA Norm (Normal); Ketones Urine Negative (Negative); Leukocyte Esterase Urine Negative (Negative); Nitrate Urine Negative (Negative); Protein Urine Neg (Negative); Specific Gravity, Urine 1.005 (1.005-1.030); Urine Appearance Clear (CLEAR); Urine Color Yellow (Yellow); Urobilinogen Urine 4 mg/dL (Negative); pH Urine 6.5 (5-7)
[2022-07-11 15:15] LABS: Basophils % 0.2 %; Eosinophils # 0.2 10^3/uL (0.0-0.8); Eosinophils % 3.4 %; Hematocrit 44.7 % (37.0-47.0); Hemoglobin 14.3 g/dL (11.5-15.3); Lymphocytes # 1.2 10^3/uL (0.8-4.8); Lymphocytes % 24.2 %; Mean Corpuscular Hemoglobin 32.1 pg (28.0-34.0); Mean Corpuscular Volume 100.4 fl (81-99); Mean Platelet Volume 10.8 fL (7.4-10.4); Monocytes # 0.3 10^3/uL (0.2-0.9); Monocytes % 6.3 %; Neutrophils # 3.24 10^3/uL (1.8-7.7); Neutrophils % 65.5 %; Nucleated Red Blood Cells % 0 %; Platelet Count 151 10^3/cmm (130-400); Red Blood Count 4.45 10^6/uL (4.1-5.3); Red Cell Distribution Width 14.2 % (12.1-15.1)
[2022-07-11 15:36] LABS: Alanine Aminotransferase 493 U/L (0-33); Albumin Level 4.2 g/dL (3.5-5.2); Alkaline Phosphatase 340 U/L (35-105); Anion Gap 12.6 (5-19); Aspartate Amino Transferase 461 U/L (0-32); Blood Urea Nitrogen 9 mg/dL (8-23); Calcium 8.8 mg/dL (8.5-10.5); Carbon Dioxide 23 mmol/L (22-29); Chloride 94 mmol/L (98-107); Globulin 2.9 g/dL (1.3-4.6); Glucose 108 mg/dL (65-115); Osmolality Calculated 261 mOsm/kg (285-295); Potassium 3.6 mmol/L (3.5-5.1); Sodium 126 mmol/L (136-145); Total Bilirubin 0.8 mg/dL (0.15-1.2); Total Protein 7.1 g/dL (6.6-8.7)
--- NOTE | 2022-07-11 15:48 | ED_ITS ---
HPI - Abdominal Pain General: Chief Complaint: Abdominal Pain Stated Complaint: abd pains Time Seen by Provider: 07/11/22 15:36 History of Present Illness: 72-year-old female complaining of abdominal pain starting today. She is nauseated. No vomiting or diarrhea. Pain is mostly to the upper abdomen right greater than left. [facility] ED PFSH: Medical History Abscess of liver Asthma Cough due to LIZZY inhibitor GERD (gastroesophageal reflux disease) History of rectocele Hypothyroid Osteoarthritis Urge incontinence Vitamin D deficiency Surgical History H/O drainage of abscess Liver abscess by IR at [place] H/O esophagogastroduodenoscopy (05/27/21) History of abdominoplasty Hx of gastric bypass Hx of hysterectomy Repair rectocele and cystocele Status post colonoscopy (05/27/21) Family History Other Arthritis Social History Smoking and tobacco status: never smoked Quit status (tobacco): has quit using tobacco Former quit date comment: smoked x 15 yrs Second hand smoke exposure: No Alcohol intake: never Substance/Drug Use: never Caregiver/support person: Yes (spouse) Lives independently: Yes Household members: spouse Marital status: service: No Current occupational status: retired Current gender identity: Female Special eleanor needs: No Course Consultations: Consultation #1: mango Consultation #2: chun Vital Signs: Vital signs: Vital Signs Temperature 97.9 F 07/11/22 14:10 Pulse Rate 75 07/11/22 14:10 Blood Pressure 159/109 07/11/22 14:10 Pulse Oximetry 97 07/11/22 14:10 Oxygen Delivery Me thod Room Air 07/11/22 14:10 MDM - Abdominal Pain Medical Decision Making 72-year-old female checked out to me at shift change from the previous phy sician. This lady had right upper quadrant pain, nausea, vomiting. No fever. Normal white blood cell count. Liver enzymes are elevated. AST 461 ALT 493. Alk phos is 340. However, total bilirubin is 0.8. Lipase is 688. She has received IV fluid and Zosyn. Spoke with surgery. He requests MRCP given alk phos elevation in lipase elevation. Will await results. MRCP is negative for ductal stone or obstruction. Mid does show acute cholecystitis. Consulted with surgery again. They request medicine admission, and they will see in the morning. Spoke with hospitalist. He agrees to admit. Lab Data 07/11/22 15:04 07/11/22 15:04 Labs/Radiology: Radiology Impressions Abdomen/Pelvis CT 07/11/22 15:54 IMPRESSION: 1. Gallbladder wall thickening with small gallstones. This is suspicious for acute cholecystitis. This can be further evaluated with ultrasound. 2. Diverticulosis of the colon. 3. Stable retained catheter or drain fragment in the lumbar soft tissues. ADDENDUM: 07/11/22 1716 Partially visualized consolidation in the right upper lobe and mild centrilobular opacities in the right lower lobe could represent pneumonia and infectious bronchiolitis respectively. Follow-up with a chest x-ray or CT chest should be considered. Abdomen Ultrasound 07/11/22 17:47 IMPRESSION: 1. Findings suspicious for acute cholecystitis with sludge and stones in the gallbladder. 2. 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 Cholangiopancreatography MRI 07/11/22 19:35 IMPRESSION: 1. Acute cholecystitis with multiple small stones and sludge in the gallbladder. 2. Normal bile ducts. No intraductal calculus visualized. Laboratory Results WBC 5.0 10^3/uL (4.0-10.0) 07/11/22 15:04 RBC 4.45 10^6/uL (4.1-5.3) 07/11/22 15:04 Hgb 14.3 g/dL (11.5-15.3) 07/11/22 15:04 Hct 44.7 % (37.0-47.0) 07/11/22 15:04 MCV 100.4 fl (81-99) H 07/11/22 15:04 MCH 32.1 pg (28.0-34.0) 07/11/22 15:04 MCHC 32.0 g/dL (30.0-36.0) 07/11/22 15:04 RDW 14.2 % (12.1-15.1) 07/11/22 15:04 Plt Count 151 10^3/cmm (130-400) 07/11/22 15:04 MPV 10.8 fL (7.4-10.4) H 07/11/22 15:04 Neut % (Auto) 65.5 % 07/11/22 15:04 Lymph % (Auto) 24.2 % 07/11/22 15:04 [place] % (Auto) 6.3 % 07/11/22 15:04 Eos % (Auto) 3.4 % 07/11/22 15:04 Baso % (Auto) 0.2 % 07/11/22 15:04 Neut # (Auto) 3.24 10^3/uL (1.8-7.7) 07/11/22 15:04 Lymph # (Auto) 1.2 10^3/uL (0.8-4.8) 07/11/22 15:04 [place] # (Auto) 0.3 10^3/uL (0.2-0.9) 07/11/22 15:04 Eos # (Auto) 0.2 10^3/uL (0.0-0.8) 07/11/22 15:04 Baso # (Auto) 0.0 10^3/uL (0.0-0.1) 07/11/22 15:04 Nucleated RBC % (auto) 0 % 07/11/22 15:04 Nucleated RBCs # 0.0 /100WBC 07/11/22 15:04 Sodium 126 mmol/L (136-145) L 07/11/22 15:04 Potassium 3.6 mmol/L (3.5-5.1) 07/11/22 15:04 Chloride 94 mmol/L (98-107) L 07/11/22 15:04 Carbon Dioxide 23 mmol/L (22-29) 07/11/22 15:04 Anion Gap 12.6 (5-19) 07/11/22 15:04 BUN 9 mg/dL (8-23) 07/11/22 15:04 Creatinine 0.6 mg/dL (0.5-0.9) 07/11/22 15:04 GFR Calculation Not Reportable 07/11/22 15:04 Glucose 108 mg/dL (65-115) 07/11/22 15:04 Calculated Osmolality 261 mOsm/kg (285-295) L 07/11/22 15:04 Calcium 8.8 mg/dL (8.5-10.5) 07/11/22 15:04 Total Bilirubin 0.8 mg/dL (0.15-1.2) 07/11/22 15:04 AST 461 U/L (0-32) H 07/11/22 15:04 ALT 493 U/L (0-33) H 07/11/22 15:04 Alkaline Phosphatase 340 U/L (35-105) H 07/11/22 15:04 Total Protein 7.1 g/dL (6.6-8.7) 07/11/22 15:04 Albumin 4.2 g/dL (3.5-5.2) 07/11/22 15:04 Globulin 2.9 g/dL (1.3-4.6) 07/11/22 15:04 Lipase 668 U/L (13-60) H 07/11/22 15:04 Urine Color Yellow (Yellow) 07/11/22 14:39 Urine Appearance Clear (CLEAR) 07/11/22 14:39 Urine pH 6.5 (5-7) 07/11/22 14:39 Ur Specific [place] 1.005 (1.005-1.030) 07/11/22 14:39 Urine Protein Neg (Negative) 07/11/22 14:39 Urine Glucose (UA) Norm (Normal) 07/11/22 14:39 Urine Ketones Negative (Negative) 07/11/22 14:39 Urine Blood Neg (Negative) 07/11/22 14:39 Urine Nitrate Negative (Negative) 07/11/22 14:39 Urine Bilirubin Neg (Negative) 07/11/22 14:39 Urine Urobilinogen 4 mg/dL (Negative) H 07/11/22 14:39 Ur Leukocyte Esterase Negative (Negative) 07/11/22 14:39 Discharge Plan Discharge Patient Disposition: Admitted As Inpatient Clinical Impression: Acute cholecystitis Condition: Stable Coding Level of Care Code ED [employer] 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
--- NOTE | 2022-07-11 15:54 | CTR_ITS ---
PROCEDURE INFORMATION: Exam: CT Abdomen And Pelvis With Contrast Exam date and time: 07/11/2022 4:38 PM Age: 72 years old Clinical indication: Abdominal pain; Localized; Right upper quadrant (ruq); Prior surgery; Surgery date: 6+ months; Surgery type: Gastric bypass, tummy tuck, gb; Additional info: Epigastric/ruq pain, elevated lfts, HX of hepatic abscess TECHNIQUE: Imaging protocol: Computed tomography of the abdomen and pelvis with contrast. Radiation optimization: All CT scans at this facility use at least one of these dose optimization techniques: automated exposure control; mA and/or kV adjustment per patient size (includes targeted exams where dose is matched to clinical indication); or iterative reconstruction. Contrast material: OMNI 350; Contrast volume: 100 ml; Contrast route: INTRAVENOUS (IV); REPORTING DATA: Count of CT and Cardiac NM exams in prior 12 months: This patient has received [address] and 0 known cardiac nuclear medicine studies in the 12 months prior to the current study. COMPARISON: CT abdomen pelvis w con* [id number] 04/30/2021 12:53 PM RADIATION DOSE METRICS: Total DLP (mGy-cm): 1036.13 FINDINGS: Tubes, catheters and devices: Clips in the inferior pelvis. Retained catheter or drain fragment in the lumbar subcutaneous soft tissues. Lungs: A partially visualized consolidation in the posterior right upper lobe. Small centrilobular opacities in the superior segment of the right lower lobe. Diaphragm: Hiatal hernia. Liver: Hepatic cysts, Hounsfield units less than 20. No suspicious nodule. Gallbladder and bile ducts: Gallbladder wall thickening with probable tiny calculi in the dependent gallbladder. The bile ducts are normal. Pancreas: Normal. No ductal dilation. Spleen: Normal. No splenomegaly. Adrenal glands: Normal. No mass. Kidneys and ureters: 3.2 cm fat containing angiomyolipoma in the lateral right kidney. The kidneys are otherwise unremarkable. No calculus or hydronephrosis. Stomach and bowel: Postsurgical changes of the stomach and gastroesophageal junction. Diverticulosis of the colon. No diverticulitis. The small bowel is unremarkable. No obstruction. Appendix: The appendix is visualized and is normal. Intraperitoneal space: Unremarkable. No free air. No significant fluid collection. Vasculature: Arterial calcifications. No aneurysm. Lymph nodes: Unremarkable. No enlarged lymph nodes. Urinary bladder: Unremarkable as visualized. Reproductive: The uterus and ovaries are absent. Bones/joints: Degenerative changes of the spine with anterior subluxation of L5 on S1. Soft tissues: Small fat containing inguinal hernias. CT/CT abdomen pelvis w con* [id number] IMPRESSION: 1. Gallbladder wall thickening with small gallstones. This is suspicious for acute cholecystitis. This can be further evaluated with ultrasound. 2. Diverticulosis of the colon. 3. Stable retained catheter or drain fragment in the lumbar soft tissues.
[2022-07-11 15:59] LABS: Lipase 668 U/L (13-60)
[2022-07-11] MEDS: iohexol 350 mg/mL 500 mL Btl (per mL) IV (16:43)
--- NOTE | 2022-07-11 17:47 | USR_ITS ---
PROCEDURE INFORMATION: Exam: US Abdomen, Limited; Right Upper Quadrant Exam date and time: 07/11/2022 6:07 PM Age: 72 years old Clinical indication: Abdominal pain; Acute; Prior surgery; Surgery date: 6+ months; Additional info: Ruq US, gallstones, abnormal CT of abd/pelvis TECHNIQUE: Imaging protocol: Real time ultrasound of the abdomen with image documentation. Limited exam focused on the right upper quadrant. COMPARISON: CT abdomen pelvis w con* [id number] 07/11/2022 4:38 PM FINDINGS: Liver: Normal. No masses. Gallbladder: Sludge and stones in the dependent gallbladder. Gallbladder wall is thickened measuring 8 mm. Positive Isidro's sign. Biliary ducts: Normal. No stones. No dilation. Pancreas: Obscured by bowel gas. Right kidney: 3.7 x 3.6 x 3.5 cm hyperechoic mass in the peripheral right kidney, consistent with an angiomyolipoma, as identified on the CT exam. Intraperitoneal space: No ascites. US/US abdomen limited [id number] IMPRESSION: 1. Findings suspicious for acute cholecystitis with sludge and stones in the gallbladder. 2. 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
--- NOTE | 2022-07-11 19:35 | MRR_ITS ---
PROCEDURE INFORMATION: Exam: MR Abdomen Without Contrast Exam date and time: 07/11/2022 8:29 PM Age: 72 years old Clinical indication: Abdominal pain; Localized; Right upper quadrant (ruq); Prior surgery; Surgery date: 6+ months; Surgery type: Gastric bypass; Patient HX: Ruq pain and n/v for 4 days, worse at nighttime; Additional info: Cholecystitis, elevated lft. Per Dr. Kelly TECHNIQUE: Imaging protocol: Magnetic resonance imaging of the abdomen without contrast. COMPARISON: CT abdomen pelvis w con* [id number] 07/11/2022 4:38 PM FINDINGS: Diaphragm: Hiatal hernia. Liver: Benign fluid signal cysts in the liver. Gallbladder and bile ducts: Multiple tiny stones and sludge in the dependent gallbladder. The gallbladder wall is thickened and edematous. The bile ducts are normal. No intraductal filling defect. Pancreas: Unremarkable. No ductal dilation. Spleen: Unremarkable. No splenomegaly. Adrenal glands: Unremarkable. No mass. Kidneys and ureters: 3.5 cm fat containing angiomyolipoma in the right kidney. The left kidney is normal. No hydronephrosis. Stomach and bowel: Postsurgical changes of the stomach. Intraperitoneal space: No free fluid. Vasculature: No abdominal aortic aneurysm. Bones/joints: Unremarkable. Soft tissues: Unremarkable. MR/MR MRCP [id number] IMPRESSION: 1. Acute cholecystitis with multiple small stones and sludge in the gallbladder. 2. Normal bile ducts. No intraductal calculus visualized.
--- NOTE | 2022-07-11 20:43 | PC.NURSE ---
ATTEMPTED TO ADM ZOYSN PT IS NO LONGER IN ROOM WILL MONITOR FOR THEM TO RETURN.
[2022-07-11] MEDS: piperacillin-tazobactam 4.5 GM in sodium chloride 0.9% (plus) 50 ML IV (21:25)
--- NOTE | 2022-07-11 21:35 | PC.NURSE ---
REPORT GIVEN TO JED RN ASSUMED CARE.
[2022-07-11] MEDS: sodium chloride 0.9% 1,000 ML 999 ML IV (22:00)
[2022-07-11] MEDS: ondansetron 2 mg/ML SDV 2 mL 4 MG IVP (22:00)
[2022-07-11] MEDS: morphine 4 mg/mL SDV 1 mL IVP (22:02)
--- NOTE | 2022-07-11 22:15 | PM.HP ---
Providers/Chief Complaint Admitting Physician: Joey Stephenson MD Primary Care Provider: ASHUTOSH Servin Chief Complaint: abd pains History of Present Illness Tania Sandy is a 72 year old female with a past medical history of osteoarthritis, asthma, hypothyroidism, who presents [facility] due to a 5-day history of right upper quadrant pain she tells me that it is quite strange, the right upper quadrant pain tends to only occur at night, has not really associate with meals, does not occur during the day, no nausea, no vomiting, no diarrhea, no fevers, no chills, she also has pain in the epigastric region, denies alcohol consumption, denies any steroid use Review of Systems Const: Denies: fever(s) Card: Denies: chest pain Resp: Denies: dyspnea GI: Reports: abdominal pain, nausea and vomiting : Denies: flank pain Medications/Allergies Home Medications Medication Instructions Recorded Confirmed Last Taken Type cholecalciferol (vitamin D3) 25 3,000 unit PO DAILY 07/04/19 07/07/22 11/15/21 History mcg (1,000 unit) tablet Vitamin B 12 Gummies 2 tab PO DAILY 02/06/21 07/07/22 11/15/21 History latanoprost 0.005 % eye drops 1 drp ophthalmic (eye) QPM 02/06/21 07/07/22 11/15/21 History montelukast 10 mg tablet 10 mg PO DAILY 05/22/21 07/07/22 11/15/21 History levothyroxine 50 mcg tablet See Rx Instructions .Route 11/26/21 07/07/22 Unknown Rx .COMPLEX #90 tabs ciclopirox 8 % topical solution 1 applic topical DAILY #6.6 mL 02/05/22 07/07/22 Unknown Rx (Ciclodan) metronidazole 0.75 % topical gel See Rx Instructions .Route 04/21/22 07/07/22 Unknown Rx .COMPLEX #45 grams albuterol sulfate 90 mcg/actuation 2 puff inhalation Q6H PRN 06/03/22 07/07/22 Unknown Rx aerosol inhaler (Ventolin HFA) shortness of breath or wheezing #8.5 grams budesonide-formoterol HFA 160 2 puff inhalation BID #10.2 grams 06/03/22 07/07/22 Unknown Rx mcg-4.5 mcg/actuation aerosol inhaler (Symbicort) mupirocin 2 % topical ointment 1 applic topical BID #22 grams 06/03/22 07/07/22 Unknown Rx triamcinolone acetonide 0.1 % See Rx Instructions .Route 06/03/22 07/07/22 Unknown Rx topical cream .COMPLEX #80 grams amlodipine 5 mg tablet 5 mg PO DAILY #30 tabs 06/04/22 07/07/22 Unknown Rx finasteride 1 mg tablet See Rx Instructions .Route 06/09/22 07/07/22 Unknown Rx .COMPLEX #30 tabs cetirizine 10 mg tablet (Allergy See Rx Instructions .Route 06/24/22 07/07/22 Unknown Rx Relief (cetirizine)) .COMPLEX #90 tabs lansoprazole 30 mg capsule,delayed 30 mg PO BID #180 caps 06/24/22 07/07/22 Unknown Rx release (Prevacid) sulfamethoxazole 800 1 tab PO BID 10 days #20 tabs 07/07/22 07/07/22 Unknown Rx mg-trimethoprim 160 mg tablet (Bactrim DS) Allergies Allergy/AdvReac Type Severity Reaction Status Date / Time latex Allergy itch rash Verified 07/07/22 10:30 PFSH Acute PFSH: Medical History Abscess of liver Asthma Cough due to LIZZY inhibitor GERD (gastroesophageal reflux disease) History of rectocele Hypothyroid Osteoarthritis Urge incontinence Vitamin D deficiency Surgical History H/O drainage of abscess Liver abscess by IR at [place] H/O esophagogastroduodenoscopy (05/27/21) History of abdominoplasty Hx of gastric bypass Hx of hysterectomy Repair rectocele and cystocele Status post colonoscopy (05/27/21) Family History Other Arthritis Social History Smoking and tobacco status: never smoked Quit status (tobacco): has quit using tobacco Former quit date comment: smoked x 15 yrs Second hand smoke exposure: No Alcohol intake: never Substance/Drug Use: never Caregiver/support person: Yes (spouse) Lives independently: Yes Household members: spouse Marital status: service: No Current occupational status: retired Current gender identity: Female Special eleanor needs: No Vitals/I&O/Wt Last Vital Signs Temp 97.9 F 07/11/22 14:10 Pulse 75 07/11/22 14:10 BP 159/109 07/11/22 14:10 Pulse Ox 97 07/11/22 14:10 O2 Del Method Room Air 07/11/22 14:10 07/11/22 07/11/22 07/11/22 06:59 14:59 22:59 Intake Total 50 / 50 Balance 50 / 50 Weight last 48 hrs Weight 106.141 kg Physical Exam Const: COMMON NORMALS: no acute distress and patient oriented x3 HENMT: COMMON NORMALS: normocephalic HEAD & SCALP: normocephalic Eye: COMMON NORMALS: Equal, round and reactive pupils present and EOMs intact bilaterally Neck/C-Spine: COMMON NORMALS: full ROM and no lymphadenopathy Lymph: LYMPHATIC: no lymphadenopathy noted Resp: COMMON NORMALS: normal respiratory effort, No retractions, No use of accessory muscles and clear to auscultation bilaterally AUSCULTATION: clear to auscultation bilaterally Cardio: COMMON NORMALS: regular rate, regular rhythm, S1 normal heart sound present and S2 normal heart sound present RATE: regular rate RHYTHM: regular rhythm HEART SOUNDS: S1 normal heart sound present and S2 normal heart sound present GI: COMMON NORMALS: Normal to inspection, nondistended, normoactive bowel sounds present and Soft to palpation AUSCULTATION: Yes normoactive bowel sounds PALPATION: Yes Tenderness to palpation present (GI) Details: RUQ Extremity: COMMON NORMALS: no pedal edema Neuro: COMMON NORMALS: patient oriented x3, CN's II-XII intact bilaterally, moves all extremities and no focal motor deficits Psych: COMMON NORMALS: mental status grossly normal Data 07/11/22 15:04 07/11/22 15:04 A&P Assessment and plan (1) Acute cholecystitis: (2) Obesity: (3) GERD (gastroesophageal reflux disease): (4) Gall stone pancreatitis: Plan Acute cholecystitis and gallstone pancreatitis -Admit to general medical floors -IV fluids -Clear liquids, n.p.o. over midnight -Zofran for nausea -Continue Zosyn -General surgery consulted -Full code -SCDs for DVT prophylaxis, anticoagulation on hold for possible surgery tomorrow morning Attestations Medical Necessity Statement*: Patient requires hospitalization, inpatient, greater than 2 minutes, for acute cholecystitis, gallstone pancreatitis Diagnoses Acute cholecystitis K81.0 Obesity E66.9 GERD (gastroesophageal reflux disease) K21.9 Gall stone pancreatitis K85.10
[2022-07-11 22:30] VITALS: BP 117/90; PULSE 87; O2SAT 96
[2022-07-11 22:52] VITALS: BMI 38.9
[2022-07-11 23:10] VITALS: BP 131/88; PULSE 91; RESP 17; TEMP 36.7; O2SAT 91
[2022-07-11 23:12] VITALS: O2SAT 96
[2022-07-11 23:18] LABS: Thyroid Stimulating Hormone 1.34 uIU/mL (0.27-4.20)
[2022-07-11] MEDS: pantoprazole 40 mg SDV IVP (23:19)
[2022-07-11] MEDS: sodium chloride 0.9% 1,000 ML 125 ML IV (23:19)
[2022-07-11 23:51] VITALS: PULSE 87
[2022-07-12] VITALS (9 sets, daily range): BP systolic 103–118; BP diastolic 65–84; PULSE 67–81; RESP 15–19; TEMP 36.5–36.7; O2SAT 92–95
[2022-07-12] MEDS: acetaminophen 325 mg Tablet 650 MG PO ×2 (01:05→12:10)
--- NOTE | 2022-07-12 02:39 | PC.NURSE ---
When pt admitted she stated that she could not verify her medications, and that her took her med bottles home. Ask pt to have her bring medications in the am for verification.
[2022-07-12 05:39] LABS: Basophils % 0.5 %; Eosinophils # 0.2 10^3/uL (0.0-0.8); Eosinophils % 4.4 %; Hematocrit 39.9 % (37.0-47.0); Hemoglobin 12.8 g/dL (11.5-15.3); Lymphocytes % 26.7 %; Mean Corpuscular HGB Conc 32.1 g/dL (30.0-36.0); Mean Corpuscular Hemoglobin 32.2 pg (28.0-34.0); Mean Corpuscular Volume 100.5 fl (81-99); Mean Platelet Volume 10.7 fL (7.4-10.4); Monocytes # 0.3 10^3/uL (0.2-0.9); Monocytes % 7.9 %; Neutrophils # 2.21 10^3/uL (1.8-7.7); Neutrophils % 60.2 %; Nucleated Red Blood Cells % 0 %; Platelet Count 148 10^3/cmm (130-400); Red Blood Count 3.97 10^6/uL (4.1-5.3); Red Cell Distribution Width 14.3 % (12.1-15.1); White Blood Count 3.7 10^3/uL (4.0-10.0)
[2022-07-12] MEDS: piperacillin-tazobactam 3.375 GM in sodium chloride 0.9% (plus) 50 ML IV ×2 (06:11→14:15)
[2022-07-12 06:12] LABS: Alanine Aminotransferase 339 U/L (0-33); Albumin Level 3.6 g/dL (3.5-5.2); Alkaline Phosphatase 236 U/L (35-105); Anion Gap 13.6 (5-19); Aspartate Amino Transferase 141 U/L (0-32); Blood Urea Nitrogen 5 mg/dL (8-23); C Reactive Protein 15.7 mg/L (0.0-4.9); Calcium 8.3 mg/dL (8.5-10.5); Carbon Dioxide 23 mmol/L (22-29); Chloride 106 mmol/L (98-107); Creatinine Clr Calc Pharmacy 76.9226; Globulin 2.4 g/dL (1.3-4.6); Glucose 117 mg/dL (65-115); Magnesium 2.1 mg/dL (1.7-2.3); Osmolality Calculated 286 mOsm/kg (285-295); Phosphorus 3.8 mg/dL (2.5-4.5); Potassium 3.6 mmol/L (3.5-5.1); Sodium 139 mmol/L (136-145); Total Bilirubin 0.6 mg/dL (0.15-1.2)
[2022-07-12] MEDS: levothyroxine 50 mcg Tablet PO (06:25)
[2022-07-12 09:28] LABS: Lipase 176 U/L (13-60)
--- NOTE | 2022-07-12 09:46 | PM.PN ---
Subjective Subjective: Patient seen and examined. Pain is better. She was able to sleep last night. No nausea or vomiting. Has an appetite. Has not been seen by Dr. Kelly yet but he is consulted. Has a history of a liver abscess about a year ago when she had similar symptoms. Vitals/I&O/Wt Last Vital Signs Temp 98.1 F 07/12/22 08:00 Pulse 76 07/12/22 08:00 Resp 18 07/12/22 08:00 BP 115/76 07/12/22 08:00 Pulse Ox 95 07/12/22 08:00 O2 Del Method Room Air 07/12/22 08:00 07/11/22 07/12/22 07/12/22 22:59 06:59 14:59 Intake Total 50 / 50 1000 / 1050 1000 / 1000 Balance 50 / 50 1000 / 1050 1000 / 1000 Weight last 48 hrs Weight 106.141 kg Weight 106.141 kg Physical Exam Narrative: Awake and alert. Lungs are clear. Regular rhythm. Abdomen is paper cone machine tender to palpation but no rebound or guarding. Pain is primarily in the right upper quadrant area. Positive bowel sounds. Oriented x3. Speech clear. Data 07/12/22 05:11 07/12/22 05:11 Other Labs: Laboratory Tests 07/12/22 05:11 Total Bilirubin 0.6 AST 141 H ALT 339 H Alkaline Phosphatase 236 H C-Reactive Protein 15.7 H Lipase 176 H A&P Assessment and plan (1) Acute calculous cholecystitis: CT of the abdomen and pelvis suspicious for cholecystitis Abdominal ultrasound with gallbladder wall thickening, positive Isidro sign, sludge and stones MRCP consistent with acute cholecystitis with multiple stones and sludge but normal bile ducts Normal bilirubin but significant transaminitis at presentation with AST and ALT in the 400s and alkaline phosphatase at 340 with comparative labs from July 07 all within completely normal range Has associated elevation in lipase Continue Zosyn Surgical consultation is ordered Pain control as needed Antiemetics and other supportive care as needed (2) Gall stone pancreatitis: Initial lipase 668 Improved presently to 176 Cholecystitis management IV fluids (3) Hypothyroid: Acquired hypothyroidism Chronically on levothyroxine Continue home dosing (4) Asthma: Chronic, not acute As needed DuoNebs Incentive spirometer (5) Hypertension: Chronically on amlodipine Current blood pressures within acceptable range Presently holding home medication (6) GERD (gastroesophageal reflux disease): Chronically on PPI Protonix while here (7) BMI 38.0-38.9,adult: Plan On PPI SCDs for DVT prophylaxis N.p.o. pending surgical consultation Supportive care otherwise Anticipate discharge home when medically stable with outpatient follow-up to surgery, likely with continued antibiotic treatment Attestations Medical Necessity Statement*: Requires ongoing inpatient stay for continued IV antibiotics, IV fluids, monitoring, supportive care and surgical evaluation Coding Level of Care Code Acute Code for [facility] Diagnoses Acute calculous cholecystitis K80.00 Gall stone pancreatitis K85.10 Hypothyroid E03.9 Asthma J45.909 Hypertension I10 GERD (gastroesophageal reflux disease) K21.9 BMI 38.0-38.9,adult Z68.38
[2022-07-12] MEDS: pantoprazole 40 mg SDV IVP ×2 (10:02→23:03)
--- NOTE | 2022-07-12 12:15 | PM.CONSULT ---
Providers/Reason For Consult Consulting Physician/Specialty*: Dr. Terrell Kelly, DO/General surgery Reason for Consult*: Acute calculous cholecystitis Attending Physician: Lissa Nicholas MD Primary Care Provider: ASHUTOSH Servin History of Present Illness History of Present Illness Tania Sandy is a 72 year old female who presented to the hospital yesterday with a 5-day history of right upper quadrant abdominal pain radiating to her back. She does report nausea but denies any emesis. She denies any diarrhea, constipation, hematochezia and/or melena. Her alk phos was markedly elevated and her lipase was elevated as well. Following CT abdomen and gallbladder ultrasound, and MRCP was done which did not show choledocholithiasis and confirmed acute calculus cholecystitis. It has now been 6 days since onset of symptoms. She has been getting IV antibiotics since last night and she reports that she is no longer having any pain. Review of Systems General: Reports: 10 or more systems reviewed and unremarkable except in HPI and below Medications/Allergies Home Medications Medication Instructions Recorded Confirmed Last Taken Type cholecalciferol (vitamin D3) 25 3,000 unit PO DAILY 07/04/19 07/12/22 11/15/21 History mcg (1,000 unit) tablet montelukast 10 mg tablet 10 mg PO DAILY 05/22/21 07/12/22 11/15/21 History albuterol sulfate 90 mcg/actuation 2 puff inhalation Q6H PRN 06/03/22 07/12/22 Unknown Rx aerosol inhaler (Ventolin HFA) shortness of breath or wheezing #8.5 grams budesonide-formoterol HFA 160 2 puff inhalation BID #10.2 grams 06/03/22 07/12/22 Unknown Rx mcg-4.5 mcg/actuation aerosol inhaler (Symbicort) lansoprazole 30 mg capsule,delayed 30 mg PO BID #180 caps 06/24/22 07/12/22 Unknown Rx release (Prevacid) sulfamethoxazole 800 1 tab PO BID 10 days #20 tabs 07/07/22 07/12/22 Unknown Rx mg-trimethoprim 160 mg tablet (Bactrim DS) amlodipine 5 mg tablet 5 mg PO QAM 07/12/22 07/12/22 Unknown History calcium carbonate 300 mg (750 mg) 300 mg PO QID PRN unknown 07/12/22 07/12/22 Unknown History chewable tablet (Tums) cetirizine 10 mg tablet (Allergy 10 mg PO QAM 07/12/22 07/12/22 Unknown History Relief (cetirizine)) cyanocobalamin (vitamin B-12) 2,000 mcg sublingual DAILY 07/12/22 07/12/22 Unknown History 1,000 mcg sublingual tablet dorzolamide 22.3 mg-timolol 6.8 1 drp ophthalmic (eye) BID 07/12/22 07/12/22 Unknown History mg/mL eye drops ferrous sulfate 325 mg (65 mg 325 mg PO DAILY 07/12/22 07/12/22 Unknown History iron) tablet (iron) finasteride 1 mg tablet 1 mg PO QAM 07/12/22 07/12/22 Unknown History levothyroxine 50 mcg tablet 50 mcg PO QAM 07/12/22 07/12/22 Unknown History omega-3 fatty acids 1,000 mg 3,000 mg PO DAILY 07/12/22 07/12/22 Unknown History capsule triamcinolone acetonide 0.1 % 1 applic topical BID PRN unknown 07/12/22 07/12/22 Unknown History topical cream Allergies Allergy/AdvReac Type Severity Reaction Status Date / Time latex Allergy itch rash Verified 07/12/22 08:35 Current Medications Generic Name Dose Route Start Last Admin Trade Name Freq PRN Reason Stop Dose Admin Acetaminophen 650 mg 07/11/22 22:44 07/12/22 12:10 Acetaminophen 325 Mg Tablet PO 650 mg Q6H PRN Administration Mild/Mod Pain Or Temp >/= 101 Piperacillin Sod/Tazobactam 50 mls @ 12.5 mls/hr 07/12/22 06:00 07/12/22 10:18 Sod 3.375 gm/ Sodium Chloride IV Infused Q8H SYLVESTER Infusion Protocol Sodium Chloride 1,000 mls @ 125 mls/hr 07/11/22 22:44 07/12/22 07:56 Sodium Chloride 0.9% IV Not Given .Q8H SYLVESTER Levothyroxine Sodium 50 mcg 07/12/22 06:00 07/12/22 06:25 Levothyroxine 50 Mcg Tablet PO 50 mcg QAM SYLVESTER Administration Pantoprazole Sodium 40 mg 07/11/22 22:44 07/12/22 10:02 Pantoprazole 40 Mg Sdv IVP 40 mg Q12H SYLVESTER Administration PFSH Acute PFSH: Medical History Abscess of liver Asthma Cough due to LIZZY inhibitor GERD (gastroesophageal reflux disease) History of rectocele Hypothyroid Osteoarthritis Urge incontinence Vitamin D deficiency Surgical History H/O drainage of abscess Liver abscess by IR at [place] H/O esophagogastroduodenoscopy (05/27/21) History of abdominoplasty Hx of gastric bypass Hx of hysterectomy Repair rectocele and cystocele Status post colonoscopy (05/27/21) Family History Other Arthritis Social History Smoking and tobacco status: never smoked Quit status (tobacco): has quit using tobacco Former quit date comment: smoked x 15 yrs Second hand smoke exposure: No Alcohol intake: never Substance/Drug Use: never Caregiver/support person: Yes (spouse) Lives independently: Yes Household members: spouse Marital status: service: No Current occupational status: retired Current gender identity: Female Special eleanor needs: No Vitals/I&O/Wt Last Vital Signs Temp 98.1 F 07/12/22 08:00 Pulse 76 07/12/22 08:00 Resp 18 07/12/22 08:00 BP 115/76 07/12/22 08:00 Pulse Ox 95 07/12/22 08:00 O2 Del Method Room Air 07/12/22 08:00 07/11/22 07/12/22 07/12/22 22:59 06:59 14:59 Intake Total 50 / 50 1000 / 1050 1290 / 1290 Balance 50 / 50 1000 / 1050 1290 / 1290 Weight last 48 hrs Weight 234 lb Weight 234 lb Physical Exam Narrative: General : Patient is well developed , no acute distress, oriented x3 Head : Normal cephalic, a-traumatic. Ears : Pinnae and external canal are normal. Hearing is normal. Eyes : PERRLA, Sclera and injection are normal. No conjunctival discharge. Nose : Mucous membranes are without erythema. Throat : buccal mucosa is normal, gums are without significant recession or hypertrophy. Lungs : Equal chest rise bilaterally, no use of accessory muscles, trachea is midline. Cor : Rate and rhythm are normal. Abdomen : Soft, ND, tender to palpation right upper quadrant, negative Isidro's, no g/r/m Extremities : No edema, no cyanosis or clubbing, dorsalis pedis pulses are present bilaterally, non-tender to palpation of calves. Upper extremities are normal bilaterally. Back : non-tender to palpation, no CVA tenderness. Neuro : CN II - XII intact, Upper and lower extremities have equal and full strength Data 07/12/22 05:11 07/12/22 05:11 A&P Assessment and plan (1) Acute calculous cholecystitis: Plan Her symptoms began 6 days ago, putting her while outside the 72-hour [facility] window for cholecystectomy. She has improved markedly with IV antibiotics. We are going to proceed with antibiotic therapy and interval cholecystectomy in 6 to 8 weeks, hopefully. If she does not continue to improve by tomorrow, or gets worse, we will have to proceed with cholecystectomy. If she does continue to improve should be surgically stable for discharge on a 2-week course of antibiotics to be finished with Augmentin at home. IV fluids IV antibiotics Regular diet N.p.o. after midnight Medical management per hospitalist Coding Level of Care Code Acute Code for [facility] Diagnoses Acute calculous cholecystitis K80.00
[2022-07-12] MEDS: sodium chloride 0.9% 1,000 ML 125 ML IV (18:09)
[2022-07-12] MEDS: HYDROcodone-acetaminophen 7.5-325 mg Tablet 1 TAB PO (20:20)
[2022-07-12] MEDS: morphine 4 mg/mL SDV 1 mL 2 MG IVP (21:15)
--- NOTE | 2022-07-12 21:46 | PC.NURSE ---
Pt infusing Zosyn at this time, that is charted that it was initiated at approximately 1400 and completed infusing at 1847. Pt has next Zosyn dose due at 2200. Notified pharmacy of Zosyn still infusing w/new instructions received and noted to inform them when infusion was last administered and they will adjust schedule. Charge nurse notified.
[2022-07-13] MEDS: dextrose 5%-ns 0.2% + KCL 20 20 MEQ/1,000 ML BAG 100 MEQ IV (01:55)
[2022-07-13 03:38] VITALS: BP 124/78; PULSE 66; RESP 15; TEMP 36.6; O2SAT 95
[2022-07-13 03:46] LABS: Basophils % 0.3 %; Eosinophils # 0.2 10^3/uL (0.0-0.8); Eosinophils % 6.1 %; Hematocrit 37.7 % (37.0-47.0); Hemoglobin 12.4 g/dL (11.5-15.3); Lymphocytes # 1.3 10^3/uL (0.8-4.8); Lymphocytes % 42.6 %; Mean Corpuscular HGB Conc 32.9 g/dL (30.0-36.0); Mean Corpuscular Volume 100.3 fl (81-99); Mean Platelet Volume 10.7 fL (7.4-10.4); Monocytes # 0.4 10^3/uL (0.2-0.9); Monocytes % 11.5 %; Neutrophils # 1.23 10^3/uL (1.8-7.7); Neutrophils % 39.5 %; Nucleated Red Blood Cells % 0 %; Platelet Count 151 10^3/cmm (130-400); Red Blood Count 3.76 10^6/uL (4.1-5.3); Red Cell Distribution Width 14.4 % (12.1-15.1); White Blood Count 3.1 10^3/uL (4.0-10.0)
[2022-07-13 04:05] LABS: Alanine Aminotransferase 210 U/L (0-33); Albumin Level 3.3 g/dL (3.5-5.2); Alkaline Phosphatase 185 U/L (35-105); Anion Gap 11.8 (5-19); Aspartate Amino Transferase 46 U/L (0-32); Blood Urea Nitrogen 6 mg/dL (8-23); C Reactive Protein 14.9 mg/L (0.0-4.9); Calcium 8.4 mg/dL (8.5-10.5); Carbon Dioxide 23 mmol/L (22-29); Chloride 108 mmol/L (98-107); Creatinine Clr Calc Pharmacy 76.9226; Globulin 2.4 g/dL (1.3-4.6); Glucose 152 mg/dL (65-115); Magnesium 1.9 mg/dL (1.7-2.3); Osmolality Calculated 289 mOsm/kg (285-295); Phosphorus 3.4 mg/dL (2.5-4.5); Potassium 3.8 mmol/L (3.5-5.1); Sodium 139 mmol/L (136-145); Total Bilirubin 0.3 mg/dL (0.15-1.2); Total Protein 5.7 g/dL (6.6-8.7)
[2022-07-13 04:12] LABS: Lipase 78 U/L (13-60)
[2022-07-13] MEDS: HYDROcodone-acetaminophen 7.5-325 mg Tablet 1 TAB PO (04:57)
[2022-07-13] MEDS: levothyroxine 50 mcg Tablet PO (05:00)
[2022-07-13] MEDS: piperacillin-tazobactam 3.375 GM in sodium chloride 0.9% (plus) 50 ML IV (05:01)
[2022-07-13 05:53] VITALS: PULSE 61
[2022-07-13 07:35] VITALS: BP 123/84; PULSE 72; RESP 18; O2SAT 94
[2022-07-13 08:00] VITALS: BP 123/84; PULSE 72; RESP 18
[2022-07-13] MEDS: pantoprazole 40 mg SDV IVP (10:13)
[2022-07-13 11:57] VITALS: BP 112/82; PULSE 68; RESP 18; TEMP 36.6; O2SAT 96
--- NOTE | 2022-07-13 12:17 | PM.PN ---
Subjective Subjective: Patient seen and examined. Denies any nausea or vomiting. Tolerating regular diet. Pain much improved. Vitals/I&O/Wt Last Vital Signs Temp 97.8 F 07/13/22 11:57 Pulse 68 07/13/22 11:57 Resp 18 07/13/22 11:57 BP 112/82 07/13/22 11:57 Pulse Ox 96 07/13/22 11:57 O2 Del Method Room Air 07/13/22 11:57 07/12/22 07/13/22 07/13/22 22:59 06:59 14:59 Intake Total 770 / 2540 972.917 / 3512.917 50 / 50 Balance 770 / 2540 972.917 / 3512.917 50 / 50 Weight last 48 hrs Weight 234 lb Weight 234 lb Physical Exam Narrative: General: No acute distress, awake alert and oriented x3 Abdomen: Soft, minimally tender in the right upper quadrant, no guarding rebound or masses, negative Isidro's Data 07/13/22 03:10 07/13/22 03:10 A&P Assessment and plan (1) Acute calculous cholecystitis: Plan Her symptoms began 6 days ago, putting her while outside the 72-hour [facility] window for cholecystectomy. She has improved markedly with IV antibiotics. We are going to proceed with antibiotic therapy and interval cholecystectomy in 6 to 8 weeks, hopefully. If she does not continue to improve by tomorrow, or gets worse, we will have to proceed with cholecystectomy. If she does continue to improve should be surgically stable for discharge on a 2-week course of antibiotics to be finished with Augmentin at home. Follow-up with me in 2 weeks to schedule surgery for 6 to 8 weeks from now Attestations Medical Necessity Statement*: Per primary Coding Level of Care Code Acute Code for [facility] Fwd Diagnoses Acute calculous cholecystitis K80.00
--- NOTE | 2022-07-13 12:46 | P.DS_ITS ---
Discharge Providers Date of Admission: 07/11/22 22:03 Date of Discharge: July 13, 2022 Attending Provider at Admission: Joey Stephenson MD Attending Provider at Discharge: Jeff Turk MD Consults: General Surgery Primary Care Provider: ASHUTOSH Servin Diagnoses at Discharge Discharge Diagnosis (1) Acute calculous cholecystitis: Status: Acute (2) Hypothyroid: Status: Chronic (3) Obesity: Status: Acute (4) Gall stone pancreatitis: Status: Acute (5) Hyperglycemia: Status: Acute (6) GERD (gastroesophageal reflux disease): Status: Chronic (7) Hypertension: Status: Chronic Reason for Visit Reason for Visit: [facility] Hospital Course Hospital Course Tania Sandy is a 72-year-old female with a past medical history significant for asthma, hypothyroidism, osteoarthritis, liver abscess, obesity status post gastric bypass, and vitamin D deficiency who presented with abdominal pain, found to have acute calculous cholecystitis. General surgery consulted and followed. Due to the timing of her presentation, optimal timing for cholecystectomy would be in 6-8 weeks if patient improves with conservative measures initially. Patient treated with IV fluids, antitibioics, and supportive care. Symptoms improved. Patient discharged to home in stable condition. She is to follow up in general surgery clinic in 2 weeks for further management. She was educated on return precautions. Patient is also to follow up with PCP within one week. Physical Exam Narrative: General: Patient is awake and alert. Pleasant. No acute distress. Head: Normocephalic. Atraumatic. EOM intact. Neck: No JVD. Cardiovascular: RRR. No gallops. No murmurs. No peripheral edema. Lungs: Clear to auscultation, no use of accessory muscles, no crackles or wheezes. Skin: No jaundice. No rashes. Abdomen: Normal bowel sounds, abdomen soft. Very mild TTP in RUQ. Genito Urinary: Genital exam not performed since complaints not related. Rectal: Rectal exam not performed since no symptoms indicated blood loss. Extremities: No cyanosis or clubbing. Musculoskeletal: No swollen or erythematous joints. Neurological: Moves all 4 extremities. No myoclonus. Discharge Data Studies Completed and Pending Completed Studies During Hospitalization Category Date Time Status CT abdomen pelvis w con* [id number] Stat Cat Scan 07/11/22 15:54 Completed MR MRCP [id number] Stat MRI 07/11/22 19:35 Completed US abdomen limited [id number] Stat Ultrasound 07/11/22 17:47 Completed Pending at discharge Category Date Time Status C Reactive Protein AM LABS Lab 07/14/22 04:00 Ordered Complete Blood Count w/Auto AM LABS Lab 07/14/22 04:00 Ordered Comprehensive Metabolic Panel AM LABS Lab 07/14/22 04:00 Ordered Magnesium AM LABS Lab 07/14/22 04:00 Ordered Phosphorus AM LABS Lab 07/14/22 04:00 Ordered Radiology Impressions Abdomen/Pelvis CT 07/11/22 15:54 IMPRESSION: 1. Gallbladder wall thickening with small gallstones. This is suspicious for acute cholecystitis. This can be further evaluated with ultrasound. 2. Diverticulosis of the colon. 3. Stable retained catheter or drain fragment in the lumbar soft tissues. ADDENDUM: 07/11/22 1716 Partially visualized consolidation in the right upper lobe and mild centrilobular opacities in the right lower lobe could represent pneumonia and infectious bronchiolitis respectively. Follow-up with a chest x-ray or CT chest should be considered. Abdomen Ultrasound 07/11/22 17:47 IMPRESSION: 1. Findings suspicious for acute cholecystitis with sludge and stones in the gallbladder. 2. 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 Cholangiopancreatography MRI 07/11/22 19:35 IMPRESSION: 1. Acute cholecystitis with multiple small stones and sludge in the gallbladder. 2. Normal bile ducts. No intraductal calculus visualized. Laboratory Results WBC 3.1 10^3/uL (4.0-10.0) L 07/13/22 03:10 RBC 3.76 10^6/uL (4.1-5.3) L 07/13/22 03:10 Hgb 12.4 g/dL (11.5-15.3) 07/13/22 03:10 Hct 37.7 % (37.0-47.0) 07/13/22 03:10 MCV 100.3 fl (81-99) H 07/13/22 03:10 MCH 33.0 pg (28.0-34.0) 07/13/22 03:10 MCHC 32.9 g/dL (30.0-36.0) 07/13/22 03:10 RDW 14.4 % (12.1-15.1) 07/13/22 03:10 Plt Count 151 10^3/cmm (130-400) 07/13/22 03:10 MPV 10.7 fL (7.4-10.4) H 07/13/22 03:10 Neut % (Auto) 39.5 % 07/13/22 03:10 Lymph % (Auto) 42.6 % 07/13/22 03:10 [place] % (Auto) 11.5 % 07/13/22 03:10 Eos % (Auto) 6.1 % 07/13/22 03:10 Baso % (Auto) 0.3 % 07/13/22 03:10 Neut # (Auto) 1.23 10^3/uL (1.8-7.7) L 07/13/22 03:10 Lymph # (Auto) 1.3 10^3/uL (0.8-4.8) 07/13/22 03:10 [place] # (Auto) 0.4 10^3/uL (0.2-0.9) 07/13/22 03:10 Eos # (Auto) 0.2 10^3/uL (0.0-0.8) 07/13/22 03:10 Baso # (Auto) 0.0 10^3/uL (0.0-0.1) 07/13/22 03:10 Nucleated RBC % (auto) 0 % 07/13/22 03:10 Nucleated RBCs # 0.0 /100WBC 07/13/22 03:10 Sodium 139 mmol/L (136-145) 07/13/22 03:10 Potassium 3.8 mmol/L (3.5-5.1) 07/13/22 03:10 Chloride 108 mmol/L (98-107) H 07/13/22 03:10 Carbon Dioxide 23 mmol/L (22-29) 07/13/22 03:10 Anion Gap 11.8 (5-19) 07/13/22 03:10 BUN 6 mg/dL (8-23) L 07/13/22 03:10 Creatinine 0.5 mg/dL (0.5-0.9) 07/13/22 03:10 GFR Calculation Not Reportable 07/13/22 03:10 Glucose 152 mg/dL (65-115) H 07/13/22 03:10 Calculated Osmolality 289 mOsm/kg (285-295) 07/13/22 03:10 Calcium 8.4 mg/dL (8.5-10.5) L 07/13/22 03:10 Phosphorus 3.4 mg/dL (2.5-4.5) 07/13/22 03:10 Magnesium 1.9 mg/dL (1.7-2.3) 07/13/22 03:10 Total Bilirubin 0.3 mg/dL (0.15-1.2) 07/13/22 03:10 AST 46 U/L (0-32) H 07/13/22 03:10 ALT 210 U/L (0-33) H 07/13/22 03:10 Alkaline Phosphatase 185 U/L (35-105) H 07/13/22 03:10 C-Reactive Protein 14.9 mg/L (0.0-4.9) H 07/13/22 03:10 Total Protein 5.7 g/dL (6.6-8.7) L 07/13/22 03:10 Albumin 3.3 g/dL (3.5-5.2) L 07/13/22 03:10 Globulin 2.4 g/dL (1.3-4.6) 07/13/22 03:10 Lipase 78 U/L (13-60) H 07/13/22 03:10 TSH 1.34 uIU/mL (0.27-4.20) 07/11/22 15:04 Urine Color Yellow (Yellow) 07/11/22 14:39 Urine Appearance Clear (CLEAR) 07/11/22 14:39 Urine pH 6.5 (5-7) 07/11/22 14:39 Ur Specific [place] 1.005 (1.005-1.030) 07/11/22 14:39 Urine Protein Neg (Negative) 07/11/22 14:39 Urine Glucose (UA) Norm (Normal) 07/11/22 14:39 Urine Ketones Negative (Negative) 07/11/22 14:39 Urine Blood Neg (Negative) 07/11/22 14:39 Urine Nitrate Negative (Negative) 07/11/22 14:39 Urine Bilirubin Neg (Negative) 07/11/22 14:39 Urine Urobilinogen 4 mg/dL (Negative) H 07/11/22 14:39 Ur Leukocyte Esterase Negative (Negative) 07/11/22 14:39 Procedures Performed None Vitals Last Vital Signs Temp 97.8 F 07/13/22 11:57 Pulse 68 07/13/22 11:57 Resp 18 07/13/22 11:57 BP 112/82 07/13/22 11:57 Pulse Ox 96 07/13/22 11:57 O2 Del Method Room Air 07/13/22 11:57 Discharge Plan Discharge Patient Disposition: Home Condition: Stable Prescriptions: New oxycodone-acetaminophen 5-325 mg tablet 1 tab PO Q6H PRN (Reason: pain) Qty: 20 0RF amoxicillin-pot clavulanate 875-125 mg tablet 1 tab PO BID Qty: 24 0RF docusate sodium [DOK] 100 mg capsule 100 mg PO BID Qty: 14 0RF No Action cholecalciferol (vitamin D3) 25 mcg (1,000 unit) tablet 3,000 unit PO DAILY sulfamethoxazole-trimethoprim [Bactrim DS] 800-160 mg tablet 1 tab PO BID 10 Days Qty: 20 0RF Rx Instructions: for 10 days (rx filled 07/07/22) albuterol sulfate [Ventolin HFA] 90 mcg/actuation HFA aerosol inhaler 2 puff inhalation Q6H PRN (Reason: shortness of breath or wheezing) Qty: 8.5 2RF budesonide-formoterol [Symbicort] 160-4.5 mcg/actuation HFA aerosol inhaler 2 puff inhalation BID Qty: 10.2 2RF lansoprazole [Prevacid] 30 mg capsule,delayed release(DR/EC) 30 mg PO BID Qty: 180 0RF montelukast 10 mg tablet 10 mg PO DAILY Fish Oil Concentrate 1,000 mg Capsule 3,000 mg PO DAILY Allergy Relief (cetirizine) 10 mg tablet 10 mg PO QAM Tums 300 mg (750 mg) Tablet,Chewable 300 mg PO QID PRN (Reason: unknown) amlodipine 5 mg tablet 5 mg PO QAM triamcinolone acetonide 0.1 % cream 1 applic TOPICAL BID PRN (Reason: unknown) levothyroxine 50 mcg tablet 50 mcg PO QAM iron 325 mg (65 mg iron) Tablet 325 mg PO DAILY dorzolamide-timolol 22.3-6.8 mg/mL drops 1 drp ophthalmic (eye) BID Vitamin B-12 1,000 mcg Tablet, Sublingual 2,000 mcg SUBLINGUAL DAILY finasteride 1 mg tablet 1 mg PO QAM Discharge Orders: Discharge Order (Routine); Ordered 07/13/22 Ordered By: Jeff Turk Referrals: Terrell Kelly DO [Physician] - 2 weeks Mariann Turcios FNP [Primary Care Provider] - 07/19/22 10:00 am Discharge Diet: Advance as tolerated, Usual diet and Low Fat Discharge Activity: Resume usual activity Patient Instructions: Oxycodone/Acetaminophen (By mouth), Amoxicillin/Clavulanate Potassium (By mouth), Laxative, Stool Softeners (By mouth), Cholecystitis (GEN), Opioid Safety Plan of Treatment: 1. Take medications as prescribed 2. Follow up with doctors appointments 3. Follow up with Dr Kelly in 2 weeks. 4. Advance diet as tolerated, avoid spicy and fatty foods until follow up. 5. No driving or operating machines while on narcotics. Discharge Attestations Time Spent in Discharge Care*: greater than 30 min Status at Discharge: Overall status at discharge: patient is progressing back to baseline Quality Metrics Clinical Quality Measures [ No reported AMI, CVA or VTE this stay] Coding Level of Care Code Acute Code for Chg Fwd Diagnoses Acute calculous cholecystitis K80.00 Hypothyroid E03.9 Obesity E66.9 Gall stone pancreatitis K85.10 Hyperglycemia R73.9 GERD (gastroesophageal reflux disease) K21.9 Hypertension I10
[2022-07-13 13:40] VITALS: BP 112/82; PULSE 68; RESP 18; TEMP 36.6; O2SAT 96
== END 2022-07-13 13:41 | disposition home or self-care (01) ==
LOC: ER 21:49 → MEDSURG 22:06
PROVIDERS: Emergency Medicine; Hospitalist; Admitting Provider Family Medicine; Emergency Provider Emergency Medicine; PCP Nurse Practitioner Family; Visit Provider Internal Medicine
DX: K80.00 Calculus of gallbladder with acute cholecystitis without obstruction (principal); K85.10 Biliary acute pancreatitis without necrosis or infection; E03.9 Hypothyroidism, unspecified; R73.9 Hyperglycemia, unspecified; J45.909 Unspecified asthma, uncomplicated; K21.9 Gastro-esophageal reflux disease without esophagitis; I10 Essential (primary) hypertension; E66.9 Obesity, unspecified; Z68.38 Body mass index [BMI] 38.0-38.9, adult; Z98.84 Bariatric surgery status; Z79.899 Other long term (current) drug therapy
CPT/HCPCS: 36415; 74177; 74181; 76705; 80053; 81003; 83690; 83735; 84100; 84443; 85025; 86140; 94664; 96365; 96367; 96375; 96376; 99285; C9113; G0378; J2270; J2405; J2543; J7030; Q9967

== ENCOUNTER → 2022-07-27 13:33 | Outpatient (BNVA) | payer MEDICARE, OTHER, SELFPAY | PROVIDERS: PCP Nurse Practitioner Family; Visit Provider Surgery | DX: K81.9 Cholecystitis, unspecified (principal) | CPT/HCPCS: 99203; 99214 ==

== ENCOUNTER 2022-08-30 08:00 | Day surgery (SDC) | payer MEDICARE, OTHER, SELFPAY ==
[2022-08-27 13:14] VITALS: BMI 37.1
[2022-08-30] VITALS (13 sets, daily range): BP systolic 123–160; BP diastolic 74–96; PULSE 65–86; RESP 12–18; TEMP 36.1–36.5; O2SAT 92–98
[2022-08-30] MEDS: sodium chloride 0.9% 1,000 ML 30 ML IV (08:36)
--- NOTE | 2022-08-30 09:06 | PM.HP ---
Providers/Chief Complaint Primary Care Provider: ASHUTOSH Servin Chief Complaint: 35624 K81.9 History of Present Illness Tania Sandy is a 72 year old female here for laparoscopic cholecystectomy Medications/Allergies Home Medications Medication Instructions Recorded Confirmed Last Taken Type cholecalciferol (vitamin D3) 25 3,000 unit PO DAILY 07/04/19 08/27/22 08/27/22 History mcg (1,000 unit) tablet albuterol sulfate 90 mcg/actuation 2 puff inhalation Q6H PRN 06/03/22 08/27/22 07/14/22 Rx aerosol inhaler (Ventolin HFA) shortness of breath or wheezing #8.5 grams budesonide-formoterol HFA 160 2 puff inhalation BID #10.2 grams 06/03/22 08/30/22 08/28/22 Rx mcg-4.5 mcg/actuation aerosol inhaler (Symbicort) lansoprazole 30 mg capsule,delayed 30 mg PO BID #180 caps 06/24/22 08/30/22 08/29/22 Rx release (Prevacid) amlodipine 5 mg tablet 5 mg PO QAM 07/12/22 08/30/22 08/29/22 History calcium carbonate 300 mg (750 mg) 300 mg PO QID PRN unknown 07/12/22 08/27/22 08/27/22 History chewable tablet (Tums) cetirizine 10 mg tablet (Allergy 10 mg PO QAM 07/12/22 08/27/22 08/27/22 History Relief (cetirizine)) cyanocobalamin (vitamin B-12) 2,000 mcg sublingual DAILY 07/12/22 08/27/22 08/27/22 History 1,000 mcg sublingual tablet dorzolamide 22.3 mg-timolol 6.8 1 drp ophthalmic (eye) BID 07/12/22 08/30/22 08/28/22 History mg/mL eye drops ferrous sulfate 325 mg (65 mg 325 mg PO DAILY 07/12/22 08/30/22 08/29/22 History iron) tablet (iron) finasteride 1 mg tablet 1 mg PO QAM 07/12/22 08/30/22 08/29/22 History omega-3 fatty acids 1,000 mg 3,000 mg PO DAILY 07/12/22 08/30/22 08/29/22 History capsule triamcinolone acetonide 0.1 % 1 applic topical BID PRN unknown 07/12/22 08/27/22 08/27/22 History topical cream Advair Diskus 1 inh inhalation DIRECTED PRN 08/27/22 08/30/22 08/29/22 History Shortness Of Breath Or Wheezing docusate sodium 100 mg capsule 100 mg PO BID PRN Constipation 08/27/22 08/27/22 Unknown History (DOK) levothyroxine 50 mcg tablet 50 mcg PO DAILY 08/30/22 08/30/22 08/29/22 History Allergies Allergy/AdvReac Type Severity Reaction Status Date / Time latex Allergy itch rash Verified 07/27/22 13:34 PFSH Acute PFSH: Medical History Abscess of liver Asthma Cough due to LIZZY inhibitor GERD (gastroesophageal reflux disease) History of rectocele Hypothyroid Osteoarthritis PICC (peripherally inserted central catheter) removal Urge incontinence Vitamin D deficiency Surgical History H/O drainage of abscess Liver abscess by IR at [place] H/O esophagogastroduodenoscopy (05/27/21) History of abdominoplasty Hx of gastric bypass Hx of hysterectomy Repair rectocele and cystocele Status post colonoscopy (05/27/21) Status post replacement of right shoulder joint Status post right knee replacement Family History Other Arthritis Social History Smoking and tobacco status: never smoked Quit status (tobacco): has quit using tobacco Former quit date comment: smoked x 15 yrs Second hand smoke exposure: No Alcohol intake: never Substance/Drug Use: never Caregiver/support person: Yes (spouse) Lives independently: Yes Household members: spouse Marital status: service: No Current occupational status: retired Current gender identity: Female Special eleanor needs: No Vitals/I&O/Wt Last Vital Signs Temp 97.7 F 08/30/22 08:17 Pulse 86 08/30/22 08:17 Resp 18 08/30/22 08:17 BP 123/95 06/12/23 08:17 Pulse Ox 96 08/30/22 08:17 O2 Del Method Room Air 08/30/22 08:17 A&P Assessment and plan (1) Symptomatic cholelithiasis: Plan Laparoscopic cholecystectomy The risk and benefits were explained and documented Attestations Medical Necessity Statement*: Home Coding Level of Care Code Acute Code for Chg Fwd Diagnoses Symptomatic cholelithiasis K80.20
[2022-08-30] MEDS: ondansetron 2 mg/ML SDV 2 mL 4 MG IVP ×2 (09:12→11:43)
[2022-08-30] MEDS: diphenhydrAMINE 50 mg/mL SDV 1mL 12.5 MG IVP (09:14)
[2022-08-30] MEDS: ceFAZolin 2,000 MG in sodium chloride 0.9% (plus) 50 ML 100 MG IV (10:03)
[2022-08-30] MEDS: lidocaine-epi 2% 20 mL INJ INJECTION (10:25)
[2022-08-30] MEDS: fentaNYL 50 mcg/mL INJ 2mL IVP ×2 (11:31→11:43)
--- NOTE | 2022-08-30 12:19 | P.OP_ITS ---
Operative Report Date of procedure: August 30, 2022 Pre-op diagnosis: Chronic calculus cholecystitis Post-op diagnosis: same Procedure done: Laparoscopic cholecystectomy Implants: None Specimens removed/disposition: Gallbladder Surgeon: Dr. Terrell Kelly DO Anesthesia: General Estimated blood loss (mL): 5 Complications: None apparent Brief History: This is a very pleasant 72-year-old female who was treated conservatively for acute calculus cholecystitis. She has since recovered and had sufficient time to undergo elective laparoscopic cholecystectomy. The risk and benefits were explained and documented. Procedure: Patient was wheeled into the operative room and placed on the OR table in a supine position. Abdomen was inspected prepped and draped in usual sterile fashion. Time-out was performed and all present were in agreement. A 15 blade scalp was used to make a stab incision in the left upper quadrant and intra- abdominal insufflation was achieved using a Veress needle. After localizing the tissue incisions were made and a 5 millimeter trocar was placed into the umbilicus as well as 2 in the right upper quadrant. A 12 millimeter trocar was placed in the epigastrium. Gallbladder was grasped and elevated. The triangle of Calot was carefully dissected using blunt dissection and electrocautery until the triangle of [place] clearly identified. The cystic duct was clipped proximally and double clipped distally. The duct was then ligated proximally. The cystic artery was doubly clipped and ligated. The gallbladder was then removed from the liver bed using electrocautery. The gallbladder was removed from the abdomen using an Endo-Catch bag through the epigastric incision. The liver bed was inspected and no bleeding was seen. The abdomen was irrigated and suctioned. All ports removed. Skin was washed and dried. Incisions were closed with 4-0 Monocryl in a subcuticular interrupted fashion. Skin glue was applied. Patient tolerated the procedure well.
--- NOTE | 2022-08-30 13:10 | SUR.PHASEII ---
12:45 INCISION SITES INTACT WITH NO DRAINAGE.
--- NOTE | 2022-08-30 13:48 | P.ANESASSM_ITS ---
Pre-Anesthetic Assessment Height/Weight: Height 1.68 m Weight 104.326 kg Temp Pulse Resp BP Pulse Ox O2 Del Method O2 Flow Rate 97.7 F 74 16 131/76 94 Room Air 3 08/30/22 12:30 08/30/22 12:30 08/30/22 12:30 08/30/22 12:30 08/30/22 12:30 08/30/22 12:30 08/30/22 11:55 Operation Date: 08/30/22 09:40 Proposed Procedures p [id number] Lap diogenes K81.9(Not Applicable) - Terrell Kelly DO Familial anesthetic complications: none Was Beta Demetris taken within 24 hours: N/A Was Clonidine taken within 24 hours: N/A Last intake: Intake Last Liquid Date 08/29/22 Last Liquid Time 21:30 Last Solid Date 08/29/22 Last Solid Time 20:30 Social No alcohol and No tobacco Exam alert, oriented x 3, clear to auscultation bilaterally and regular rate & rhythm Airway Submandibular: within normal limits Cervical ROM: within normal limits Mallampati: Class II Dentition: chipped Pulmonary Asthma CV/HEM Anemia and Hypertension GI Gastroesophageal Reflux Disease Metabolic Morbid Obesity and Thyroid Disease [facility] Osteoarthritis/DJD Anesthetic Plan ASA status: 3 Anesthesia: General Medications/Allergies Home Medications Medication Instructions Recorded Confirmed Last Taken Type cholecalciferol (vitamin D3) 25 3,000 unit PO DAILY 07/04/19 08/27/22 08/27/22 History mcg (1,000 unit) tablet albuterol sulfate 90 mcg/actuation 2 puff inhalation Q6H PRN 06/03/22 08/27/22 07/14/22 Rx aerosol inhaler (Ventolin HFA) shortness of breath or wheezing #8.5 grams budesonide-formoterol HFA 160 2 puff inhalation BID #10.2 grams 06/03/22 08/30/22 08/28/22 Rx mcg-4.5 mcg/actuation aerosol inhaler (Symbicort) lansoprazole 30 mg capsule,delayed 30 mg PO BID #180 caps 06/24/22 08/30/22 08/29/22 Rx release (Prevacid) amlodipine 5 mg tablet 5 mg PO QAM 07/12/22 08/30/22 08/29/22 History calcium carbonate 300 mg (750 mg) 300 mg PO QID PRN unknown 07/12/22 08/27/22 08/27/22 History chewable tablet (Tums) cetirizine 10 mg tablet (Allergy 10 mg PO QAM 07/12/22 08/27/22 08/27/22 History Relief (cetirizine)) cyanocobalamin (vitamin B-12) 2,000 mcg sublingual DAILY 07/12/22 08/27/22 08/27/22 History 1,000 mcg sublingual tablet dorzolamide 22.3 mg-timolol 6.8 1 drp ophthalmic (eye) BID 07/12/22 08/30/22 08/28/22 History mg/mL eye drops ferrous sulfate 325 mg (65 mg 325 mg PO DAILY 07/12/22 08/30/22 08/29/22 History iron) tablet (iron) finasteride 1 mg tablet 1 mg PO QAM 07/12/22 08/30/22 08/29/22 History omega-3 fatty acids 1,000 mg 3,000 mg PO DAILY 07/12/22 08/30/22 08/29/22 History capsule triamcinolone acetonide 0.1 % 1 applic topical BID PRN unknown 07/12/22 08/27/22 08/27/22 History topical cream Advair Diskus 1 inh inhalation DIRECTED PRN 08/27/22 08/30/22 08/29/22 History Shortness Of Breath Or Wheezing docusate sodium 100 mg capsule 100 mg PO BID PRN Constipation 08/27/22 08/27/22 Unknown History (DOK) docusate sodium 100 mg capsule 100 mg PO BID #20 caps 08/30/22 Unknown Rx (Colace) levothyroxine 50 mcg tablet 50 mcg PO DAILY 08/30/22 08/30/22 08/29/22 History oxycodone-acetaminophen 7.5 mg-325 1 tab PO Q6H PRN pain #20 tabs 08/30/22 Unknown Rx mg tablet sulfamethoxazole 800 1 tab PO BID 7 days #14 tabs 08/30/22 Unknown Rx mg-trimethoprim 160 mg tablet (Bactrim DS) Allergies Allergy/AdvReac Type Severity Reaction Status Date / Time latex Allergy itch rash Verified 07/27/22 13:34 [facility] Anesthesia Medical History Abscess of liver Asthma Cough due to LIZZY inhibitor GERD (gastroesophageal reflux disease) History of rectocele Hypothyroid Osteoarthritis PICC (peripherally inserted central catheter) removal Urge incontinence Vitamin D deficiency Surgical History H/O drainage of abscess Liver abscess by IR at [place] H/O esophagogastroduodenoscopy (05/27/21) History of abdominoplasty Hx of gastric bypass Hx of hysterectomy Repair rectocele and cystocele Status post colonoscopy (05/27/21) Status post replacement of right shoulder joint Status post right knee replacement Family History Other Arthritis Social History Smoking and tobacco status: never smoked Quit status (tobacco): has quit using tobacco Former quit date comment: smoked x 15 yrs Second hand smoke exposure: No Alcohol intake: never Substance/Drug Use: never Caregiver/support person: Yes (spouse) Lives independently: Yes Household members: spouse Marital status: service: No Current occupational status: retired Current gender identity: Female Special eleanor needs: No Data Anesthesia Cardiac Studies: No Data to Display
--- NOTE | 2022-08-30 13:49 | ANE.PACU2 ---
Inpatient post-anesthesia follow up: Airway intact: Yes Vital signs: Temperature 97.7 F Pulse Rate 74 Respiratory Rate 16 Blood Pressure 131/76 Pulse Oximetry 94 Oxygen Delivery Me thod Room Air Oxygen Flow Rate 3 Fraction of Inspir ed Oxygen Hydration adequate: Yes Nausea and vomiting: No Pain level: 3 Mental status: Baseline
== END 2022-08-30 13:00 | disposition home or self-care (01) ==
PROVIDERS: PCP Nurse Practitioner Family; Visit Provider Surgery
PROC: 0FT44ZZ Resection of Gallbladder, Percutaneous Endoscopic Approach (ICD-10-PCS; CPT 47562; principal; 2022-08-30 09:30)
DX: K80.10 Calculus of gallbladder with chronic cholecystitis without obstruction (principal); E03.9 Hypothyroidism, unspecified; K21.9 Gastro-esophageal reflux disease without esophagitis; E66.01 Morbid (severe) obesity due to excess calories; Z68.37 Body mass index [BMI] 37.0-37.9, adult; E55.9 Vitamin D deficiency, unspecified
CPT/HCPCS: 47562; 88304; J0690; J1100; J1200; J2405; J2704; J2710; J3010; J3490; J7030

== ENCOUNTER → 2022-09-14 11:27 | Outpatient (BNVA) | payer MEDICARE, OTHER, SELFPAY | PROVIDERS: PCP Nurse Practitioner Family; Visit Provider Surgery | DX: T14.8XXA Other injury of unspecified body region, initial encounter (principal); Z90.49 Acquired absence of other specified parts of digestive tract; X58.XXXA Exposure to other specified factors, initial encounter | CPT/HCPCS: 99213 ==

== ENCOUNTER → 2022-09-29 15:19 | Outpatient (BNVA) | payer MEDICARE, OTHER, SELFPAY | PROVIDERS: PCP Nurse Practitioner Family; Visit Provider Surgery | DX: T14.8XXA Other injury of unspecified body region, initial encounter (principal); X58.XXXA Exposure to other specified factors, initial encounter | CPT/HCPCS: 10140; 11400; 88304; 99213 ==

== ENCOUNTER → 2022-10-12 13:17 | Outpatient (BNVA) | payer MEDICARE, OTHER, SELFPAY | PROVIDERS: PCP Nurse Practitioner Family; Visit Provider Surgery | DX: T14.8XXA Other injury of unspecified body region, initial encounter (principal); X58.XXXA Exposure to other specified factors, initial encounter | CPT/HCPCS: 99213 ==

== ENCOUNTER → 2022-11-17 15:05 | Outpatient (BNVA) | payer MEDICARE, OTHER, SELFPAY | PROVIDERS: PCP Nurse Practitioner Family; Visit Provider Surgery | DX: T14.8XXA Other injury of unspecified body region, initial encounter (principal); X58.XXXA Exposure to other specified factors, initial encounter | CPT/HCPCS: 99213 ==

== ENCOUNTER 2023-01-21 10:38 | Outpatient (CLI) | payer MEDICARE, OTHER, SELFPAY ==
--- NOTE | 2023-01-21 11:00 | CT_ITS ---
WS: [id number] CT chest wo con [id number] HISTORY: R91.1 - Solitary pulmonary nodule TECHNIQUE: Axial imaging performed through the thorax. Coronal and sagittal reformats are submitted. All CT scans at [facility] use at least one of these dose optimization techniques: automated exposure control; mA and/or kV adjustment per patient size (includes targeted exams where dose is mat ched to clinical indication); or iterative reconstruction. CONTRAST: None DLP: 606.15 mGy.cm COMPARISON: 11/13/2021 CT shoulder. Lungs and central airway: Reidentified 3 mm noncalcified nodule RIGHT upper lobe is unchanged. Additi onal micronodule medial LEFT upper lobe. No mass or pneumonia. Pleura: Normal. No pleural effusion. Heart and pericardium: Normal size heart with no pericardial effusion. Mediastinum and osito: No mediastinum or hilar adenopathy. Vessels: Normal thoracic aorta. Pulmonary artery is dilated at 4.0 cm. Chest wall and lower neck: No soft tissue masses. Upper abdomen: Moderate-sized hiatal hernia. Postsurgical clips are noted at the GE junction. Prior c holecystectomy. No adrenal mass. Osseous structures: RIGHT humeral head prosthesis. IMPRESSION: 1. No change RIGHT upper lobe 3 mm pulmonary nodule since 11/13/2021. There is an additional micronodu le in the medial LEFT upper lobe. With no history of malignancy no additional follow-up is necessary. 2. Mild pulmonary hypertension. 3. Small hiatal hernia and postoperative changes at the GE junction.
== END 2023-01-21 10:39 | disposition home or self-care (01) ==
LOC: RAD 10:38
PROVIDERS: PCP Nurse Practitioner Family; Visit Provider Nurse Practitioner Family
DX: R91.1 Solitary pulmonary nodule (principal); I27.20 Pulmonary hypertension, unspecified; K44.9 Diaphragmatic hernia without obstruction or gangrene
CPT/HCPCS: 71250

== ENCOUNTER → 2023-02-22 11:24 | Outpatient (BNVA) | payer MEDICARE, OTHER, SELFPAY | PROVIDERS: PCP Nurse Practitioner Family; Visit Provider Surgery | DX: Z98.890 Other specified postprocedural states (principal) | CPT/HCPCS: 99213 ==

== ENCOUNTER → 2023-03-29 16:45 | Outpatient (BNVA) | payer MEDICARE, OTHER, SELFPAY | PROVIDERS: PCP Nurse Practitioner Family; Visit Provider Nurse Practitioner Family | DX: R73.9 Hyperglycemia, unspecified (principal); Z13.6 Encounter for screening for cardiovascular disorders; I10 Essential (primary) hypertension | CPT/HCPCS: 80053; 80061; 83036; 84443; 85025 ==

== ENCOUNTER → 2023-04-04 13:55 | Outpatient (BNVA) | payer MEDICARE, OTHER, SELFPAY | PROVIDERS: PCP Nurse Practitioner Family; Visit Provider Thoracic Surgery (Cardiothoracic Vascular Surgery) | DX: T81.31XD Disruption of external operation (surgical) wound, not elsewhere classified, subsequent encounter (principal); Y83.8 Other surgical procedures as the cause of abnormal reaction of the patient, or of later complication, without mention of misadventure at the time of the procedure | CPT/HCPCS: 11042; 99213; A6021 ==

== ENCOUNTER → 2023-04-18 15:51 | Outpatient (BNVA) | payer MEDICARE, OTHER, SELFPAY | PROVIDERS: PCP Nurse Practitioner Family; Visit Provider Thoracic Surgery (Cardiothoracic Vascular Surgery) | DX: L98.492 Non-pressure chronic ulcer of skin of other sites with fat layer exposed (principal) | CPT/HCPCS: 11042; A6021 ==

== ENCOUNTER → 2023-04-26 15:13 | Outpatient (BNVA) | payer MEDICARE, OTHER, SELFPAY | PROVIDERS: PCP Nurse Practitioner Family; Visit Provider Thoracic Surgery (Cardiothoracic Vascular Surgery) | DX: I96 Gangrene, not elsewhere classified (principal); L98.491 Non-pressure chronic ulcer of skin of other sites limited to breakdown of skin | CPT/HCPCS: 97597; A6021; A6212 ==

== ENCOUNTER → 2023-05-03 11:05 | Outpatient (BNVA) | payer MEDICARE, OTHER, SELFPAY | PROVIDERS: PCP Nurse Practitioner Family; Visit Provider Thoracic Surgery (Cardiothoracic Vascular Surgery) | DX: T81.31XD Disruption of external operation (surgical) wound, not elsewhere classified, subsequent encounter (principal); Y83.8 Other surgical procedures as the cause of abnormal reaction of the patient, or of later complication, without mention of misadventure at the time of the procedure | CPT/HCPCS: 97597; A6021 ==

== ENCOUNTER 2023-05-11 15:00 | Outpatient (CLI) | payer MEDICARE, OTHER, SELFPAY ==
--- NOTE | 2023-05-11 15:15 | US_ITS ---
WS: [id number] RENAL ULTRASOUND HISTORY: N28.1 - Cyst of kidney, acquired COMPARISON: CT 07/11/2022 TECHNIQUE: 2-D and color Doppler imaging of the kidney submitted. Right kidney: 10.5 cm x 4.1 cm x 4.8 cm. Cortex: 1.3 cm Solid mass with increased echogenicity involving the mid lateral LEFT kidney measures 3.7 x 3.5 x 2.8 cm. This is a fat-containing mass and previously described on a CT of 07/11/2022. No increase in size . No additional abnormality within the RIGHT kidney. Left kidney: 10.2 cm x 6.0 cm x 3.2 cm. Cortex: 1.2 cm Normal echogenicity with no hydronephrosis or mass. Aorta: Normal. Urinary Bladder: Normal distention. IMPRESSION: 1. No hydronephrosis or atrophy. 2. Fat-containing RIGHT renal mass similar in size to the prior CT of 07/11/2022 consistent with an a ngiomyolipoma.
== END 2023-05-11 15:01 | disposition home or self-care (01) ==
LOC: RAD 15:00
PROVIDERS: PCP Nurse Practitioner Family; Visit Provider Nurse Practitioner Family
DX: N28.1 Cyst of kidney, acquired (principal); N28.89 Other specified disorders of kidney and ureter
CPT/HCPCS: 76770; 97597; A6021

== ENCOUNTER → 2023-05-17 11:11 | Outpatient (BNVA) | payer MEDICARE, OTHER, SELFPAY | PROVIDERS: PCP Nurse Practitioner Family; Visit Provider Thoracic Surgery (Cardiothoracic Vascular Surgery) | DX: T81.31XD Disruption of external operation (surgical) wound, not elsewhere classified, subsequent encounter (principal); Y83.8 Other surgical procedures as the cause of abnormal reaction of the patient, or of later complication, without mention of misadventure at the time of the procedure | CPT/HCPCS: 97597; A6021 ==

== ENCOUNTER → 2023-05-24 10:55 | Outpatient (BNVA) | payer MEDICARE, OTHER, SELFPAY | PROVIDERS: PCP Nurse Practitioner Family; Visit Provider Thoracic Surgery (Cardiothoracic Vascular Surgery) | DX: T81.31XD Disruption of external operation (surgical) wound, not elsewhere classified, subsequent encounter (principal); Y83.8 Other surgical procedures as the cause of abnormal reaction of the patient, or of later complication, without mention of misadventure at the time of the procedure | CPT/HCPCS: 97597; A6021; A6212 ==

== ENCOUNTER → 2023-05-31 10:59 | Outpatient (BNVA) | payer MEDICARE, OTHER, SELFPAY | PROVIDERS: PCP Nurse Practitioner Family; Visit Provider Thoracic Surgery (Cardiothoracic Vascular Surgery) | DX: T81.31XD Disruption of external operation (surgical) wound, not elsewhere classified, subsequent encounter (principal); Y83.8 Other surgical procedures as the cause of abnormal reaction of the patient, or of later complication, without mention of misadventure at the time of the procedure | CPT/HCPCS: 97597; A6021 ==

== ENCOUNTER → 2023-06-07 12:59 | Outpatient (BNVA) | payer MEDICARE, OTHER, SELFPAY | PROVIDERS: PCP Nurse Practitioner Family; Visit Provider Thoracic Surgery (Cardiothoracic Vascular Surgery) | DX: T81.31XD Disruption of external operation (surgical) wound, not elsewhere classified, subsequent encounter (principal); Y83.8 Other surgical procedures as the cause of abnormal reaction of the patient, or of later complication, without mention of misadventure at the time of the procedure | CPT/HCPCS: 97597; A6021; A6212 ==

== ENCOUNTER → 2023-06-14 13:46 | Outpatient (BNVA) | payer MEDICARE, OTHER, SELFPAY | PROVIDERS: PCP Nurse Practitioner Family; Visit Provider Thoracic Surgery (Cardiothoracic Vascular Surgery) | DX: T81.31XD Disruption of external operation (surgical) wound, not elsewhere classified, subsequent encounter (principal); Y83.8 Other surgical procedures as the cause of abnormal reaction of the patient, or of later complication, without mention of misadventure at the time of the procedure | CPT/HCPCS: 99212; A6021 ==

== ENCOUNTER → 2023-09-06 11:13 | Outpatient (BNVA) | payer MEDICARE, OTHER, SELFPAY | PROVIDERS: PCP Nurse Practitioner Family; Referring Provider Nurse Practitioner Family; Visit Provider Student in an Organized Health Care Education/Training Program | DX: M19.012 Primary osteoarthritis, left shoulder | CPT/HCPCS: 73030; 99203 ==

== ENCOUNTER → 2023-11-03 06:54 | Outpatient (BNVA) | payer MEDICARE, OTHER, SELFPAY | PROVIDERS: PCP Nurse Practitioner Family; Visit Provider Student in an Organized Health Care Education/Training Program | DX: M19.012 Primary osteoarthritis, left shoulder | CPT/HCPCS: 20610; 77002; 99213; J3301 ==

== ENCOUNTER 2023-11-03 07:32 | Outpatient (CLI) | payer MEDICARE, OTHER, SELFPAY | END 2023-11-03 07:33 | disposition home or self-care (01) | LOC: LAB 07:34 | PROVIDERS: PCP Nurse Practitioner Family; Visit Provider Nurse Practitioner Family | DX: E11.65 Type 2 diabetes mellitus with hyperglycemia (principal); E55.9 Vitamin D deficiency, unspecified | CPT/HCPCS: 36415; 80053; 80061; 82306; 82607; 83036; 84443; 85025 ==

== ENCOUNTER → 2023-11-23 13:03 | Outpatient (BNVA) | payer MEDICARE, OTHER, SELFPAY | PROVIDERS: PCP Nurse Practitioner Family; Visit Provider Thoracic Surgery (Cardiothoracic Vascular Surgery) | DX: T81.31XD Disruption of external operation (surgical) wound, not elsewhere classified, subsequent encounter (principal); Y83.8 Other surgical procedures as the cause of abnormal reaction of the patient, or of later complication, without mention of misadventure at the time of the procedure | CPT/HCPCS: 97597; 99213; A6021 ==

== ENCOUNTER → 2023-11-30 10:05 | Outpatient (BNVA) | payer MEDICARE, OTHER, SELFPAY | PROVIDERS: PCP Nurse Practitioner Family; Visit Provider Thoracic Surgery (Cardiothoracic Vascular Surgery) | DX: T81.31XD Disruption of external operation (surgical) wound, not elsewhere classified, subsequent encounter (principal); Y83.8 Other surgical procedures as the cause of abnormal reaction of the patient, or of later complication, without mention of misadventure at the time of the procedure | CPT/HCPCS: 97597; A6021 ==

== ENCOUNTER → 2023-12-07 10:11 | Outpatient (BNVA) | payer MEDICARE, OTHER, SELFPAY | PROVIDERS: PCP Nurse Practitioner Family; Visit Provider Thoracic Surgery (Cardiothoracic Vascular Surgery) | DX: Z09 Encounter for follow-up examination after completed treatment for conditions other than malignant neoplasm (principal); Z87.2 Personal history of diseases of the skin and subcutaneous tissue | CPT/HCPCS: 99212 ==

== ENCOUNTER → 2024-01-31 10:29 | Outpatient (BNVA) | payer MEDICARE, OTHER, SELFPAY | PROVIDERS: PCP Nurse Practitioner Family; Visit Provider Student in an Organized Health Care Education/Training Program | DX: M19.012 Primary osteoarthritis, left shoulder (principal) | CPT/HCPCS: 99213 ==

== ENCOUNTER → 2024-03-02 08:39 | Outpatient (BNVA) | payer MEDICARE, OTHER, SELFPAY | PROVIDERS: PCP Nurse Practitioner Family; Visit Provider Student in an Organized Health Care Education/Training Program | DX: M19.012 Primary osteoarthritis, left shoulder (principal) | CPT/HCPCS: 77002; J3301 ==

== ENCOUNTER → 2024-06-12 13:51 | Outpatient (BNVA) | payer MEDICARE, OTHER, SELFPAY | PROVIDERS: PCP Nurse Practitioner Family; Visit Provider Nurse Practitioner Family | DX: I10 Essential (primary) hypertension (principal); E11.65 Type 2 diabetes mellitus with hyperglycemia; R73.9 Hyperglycemia, unspecified; M25.50 Pain in unspecified joint; E55.9 Vitamin D deficiency, unspecified | CPT/HCPCS: 80053; 80061; 82306; 82607; 83036; 84443; 85025; 85651; 86140; 86160; 86162; 86200; 86235; 86255; 86376; 86431 ==

== ENCOUNTER → 2024-07-24 10:52 | Outpatient (BNVA) | payer MEDICARE, OTHER, SELFPAY | PROVIDERS: PCP Nurse Practitioner Family; Visit Provider Podiatrist Foot & Ankle Surgery | DX: E11.65 Type 2 diabetes mellitus with hyperglycemia (principal); L60.3 Nail dystrophy | CPT/HCPCS: 99203 ==

== ENCOUNTER → 2024-08-03 12:00 | Outpatient (BNVA) | payer MEDICARE, OTHER, SELFPAY | PROVIDERS: PCP Nurse Practitioner Family; Visit Provider Student in an Organized Health Care Education/Training Program | DX: M19.012 Primary osteoarthritis, left shoulder (principal); M25.512 Pain in left shoulder; G89.29 Other chronic pain | CPT/HCPCS: 20610; 77002; J3301; J9999 ==

== ENCOUNTER → 2024-08-21 10:59 | Outpatient (BNVA) | payer MEDICARE, OTHER, SELFPAY | PROVIDERS: PCP Nurse Practitioner Family; Visit Provider Podiatrist Foot & Ankle Surgery | DX: E11.65 Type 2 diabetes mellitus with hyperglycemia (principal); L60.3 Nail dystrophy | CPT/HCPCS: 99213 ==

== ENCOUNTER 2024-12-26 13:04 | Outpatient (CLI) | payer MEDICARE, OTHER, SELFPAY ==
[2024-12-26 14:03] LABS: Hematocrit 43.1 % (36-47); Hemoglobin 14.00 g/dL (11.27-16.99); Mean Corpuscular HGB Conc 32.5 g/dL (30-55); Mean Corpuscular Hemoglobin 31.3 pg (27-33); Mean Corpuscular Volume 96.2 fl (85-98); Nucleated Red Blood Cells % 0 %; Platelet Count 182 10^3/cmm (157-399); Red Blood Count 4.48 10^6/uL (3.85-5.65); White Blood Count 6.12 10^3/uL (3.29-11.43)
[2024-12-26 14:24] LABS: Estmated Average Glucose 131; Hemoglobin A1C 6.2 % (4.0-6.0)
[2024-12-26 14:50] LABS: Alanine Aminotransferase 13 U/L (0-33); Albumin Level 4.2 g/dL (3.5-5.2); Alkaline Phosphatase 89 U/L (35-105); Anion Gap 15.2 (5-19); Aspartate Amino Transferase 14 U/L (0-32); Blood Urea Nitrogen 10 mg/dL (8-23); Calcium 9.4 mg/dL (8.5-10.5); Carbon Dioxide 28 mmol/L (22-29); Chloride 103 mmol/L (98-107); Cholesterol 146 mg/dL (0-200); Globulin 2.8 g/dL (1.3-4.6); Glucose 97 mg/dL (65-115); HDL Cholesterol 54 mg/dL (60-100); Magnesium 2.1 mg/dL (1.7-2.3); Osmolality Calculated 293 mOsm/kg (285-295); Potassium 4.2 mmol/L (3.5-5.1); Sodium 142 mmol/L (136-145); Thyroid Stimulating Hormone 1.43 uIU/mL (0.27-4.20); Total Protein 7.0 g/dL (6.6-8.7); Triglycerides 105 mg/dL (0-150)
[2024-12-26 15:28] LABS: Vitamin B12 > 2000 pg/mL (232-1245)
== END 2024-12-26 13:05 | disposition home or self-care (01) ==
LOC: LAB 13:08
PROVIDERS: PCP Nurse Practitioner Family; Visit Provider Nurse Practitioner Family
DX: I10 Essential (primary) hypertension (principal); E11.65 Type 2 diabetes mellitus with hyperglycemia; E55.9 Vitamin D deficiency, unspecified
CPT/HCPCS: 36415; 80053; 80061; 82306; 82607; 83036; 83735; 84443; 85025

== ENCOUNTER → 2025-01-04 11:02 | Outpatient (BNVA) | payer MEDICARE, OTHER, SELFPAY | PROVIDERS: PCP Nurse Practitioner Family; Visit Provider Student in an Organized Health Care Education/Training Program | DX: M19.012 Primary osteoarthritis, left shoulder (principal); Z71.89 Other specified counseling | CPT/HCPCS: 20610; 77002; J3301; J9999 ==